=== PATIENT | male | born 1940 | race Caucasian/White ===

== ENCOUNTER 2017-06-26 19:45 | Emergency (ER) | payer OTHER ==
[~2017-06-26] VITALS: Ht 175.3 cm; Wt 81.7 kg
[~2017-06-26 19:45] MED LIST: DOCU100C31 PO; METO25TA56 PO; POLY335019 PO; TAMS0.4C38 PO
[2017-06-26 19:57] VITALS: TEMP 37; Ht 175.3 cm; Wt 81.7 kg
[2017-06-26] MEDS ORDERED: SODIUM CHLORIDE 0.9% 500ML 500 ML IV STA (20:05)
[2017-06-26] MEDS ORDERED: ONDANSETRON INJ 2 MG/ML 2 ML VIAL IV STA (20:05)
[2017-06-26] MEDS ORDERED: WARF5TAB7 PO ×2 (20:15)
[2017-06-26] MEDS ORDERED: AMLO2.5T PO (20:15)
[2017-06-26] MEDS ORDERED: FRS/40 PO (20:15)
[2017-06-26] MEDS ORDERED: MoRPHine SULFATE 4 MG/ML 1 ML CARP\\VIAL IV PRN (20:15)
[2017-06-26] MEDS ORDERED: AMOX500C3 PO (20:15)
[2017-06-26] MEDS ORDERED: POTA10CA28 PO (20:15)
[2017-06-26 20:41] LABS: BASO % 0.1 %; BASO ABS # 0.01 K/uL (0-0.2); COMPLETE YES; EOS % 0.1 %; HEMATOCRIT 46.9 % (42-52); IG% 0.2 %; LYMPH % 5.5 %; LYMPH ABS # 0.47 K/uL (1.2-3.4); MEAN CELL VOLUME 95.7 fL (80-100); MEAN CORPUSCULAR HGB CONC 33.5 g/dl (32-36); MEAN PLATELET VOLUME 11.8 fL (7.4-10.4); MONO % 14.5 %; NEUT % 79.6 %; PLATELET COUNT 140 K/uL (130-400)
--- NOTE | 2017-06-26 20:46 | DIAGNOSTIC IMAGING REPORT ---
CHEST ONE VIEW PORTABLE CLINICAL HISTORY: Abdominal pain and nausea. COMPARISON STUDY: Chest radiograph June 26, 2015. FINDINGS: No pneumothorax or pleural effusion is present. Mild to moderate cardiomegaly is noted. There is no evidence of pulmonary edema. A calcified 1.1 cm left lung granuloma is again noted. There is no consolidation to suggest pneumonia. Mild left basilar opacity favors atelectasis. IMPRESSION: No acute cardiopulmonary findings. Electronically signed by: Bret Hu M.D. 06/26/2017 8:44 PM Dictated Date/Time: 06/26/2017 8:43 PM
--- NOTE | 2017-06-26 20:54 | EMERGENCY ROOM VISIT NOTE ---
History Report prepared by Laisha: Geovanny Long Under the Supervision of: Dr. Frank Tam D.O. First contact with patient: 20:02 Chief Complaint: NAUSEA Stated Complaint: NAUSEA,DIZZY,STOMACH HAS GAS,DIARRHEA,KIDNEYS History of Present Illness The patient is a 76 year old male who presents to the Emergency Room with complaints of constant nausea starting earlier today. The patient additionally is complaining of diarrhea, dizziness, and he states that his stomach is firm. He also notes that he is vomiting liquids, and he has chronic leg swelling. The patient denies any abdominal pain, back pain, hematuria, headache, chest pain, shortness of breath, fevers, or chills, and any recent antibiotics. He states that he is having some sinus congestion. The patient notes that he had similar symptoms two years ago when he had kidney stones. Source of History: patient Onset: earlier today Position: other (global) Quality: other (nausea) Timing: constant Associated Symptoms: + vomiting, + diarrhea Note: Associated symptoms: dizziness, and his stomach feels firm Review of Systems See HPI for pertinent positives & negatives. A total of 10 systems reviewed and were otherwise negative. Past Medical & Surgical Medical Problems: (1) Aortic stenosis (2) CAD (coronary artery disease) (3) HTN (hypertension) (4) Hx of finger surgery (5) Paroxysmal a-fib Surgical Problems: (1) History of back surgery (2) Hx of cataract surgery (3) Hx of elbow surgery (4) Hx of hernia repair Family History No significant family history Social History Smoking Status: Never Smoker Alcohol Use: occasionally Drug Use: none Marital Status: Housing Status: lives with family Occupation Status: retired Current/Historical Medications Scheduled Amlodipine (Norvasc), 2.5 MG PO DAILY Amoxicillin (Amoxil), 500 MG PO DIRECTED Metoprolol Tartrate (Lopressor) (Lopressor), 25 MG PO BID Potassium Chloride (Micro-K Ext Rel), 10 MEQ PO DAILY Warfarin Sod (Jantoven), 5 MG PO MONDAY Warfarin Sod (Jantoven), 2.5 MG PO [id number] Scheduled PRN Furosemide (Lasix), 40 MG PO DAILY PRN for PRN Allergies Coded Allergies: No Known Allergies (Unverified , 06/26/17) Physical Exam Vital Signs Date Time Temp Pulse Resp B/P (MAP) Pulse Ox O2 Delivery O2 Flow Rate FiO2 06/26/17 23:18 89 18 126/72 94 06/26/17 21:54 93 118/65 90 Room Air 06/26/17 20:52 82 06/26/17 19:57 37.0 86 16 150/81 95 Room Air Physical Exam GENERAL: Patient is awake, alert, and in no acute distress. Patient is resting comfortably and showing no signs of anxiety EYES: The conjunctivae are clear. The pupils are round and reactive. EARS, NOSE, MOUTH AND THROAT: The nose is without any evidence of any deformity. Mucous membranes are moist tongue is midline NECK: The neck is nontender and supple. RESPIRATORY: Normal respiratory effort is noted there is no evidence of wheezing rhonchi or rales CARDIOVASCULAR: Irregular rhythm. Systolic murmur suggested to auscultation. GASTROINTESTINAL: The abdomen is moderately distended but soft. No specific tenderness, guarding, or rigidity. BACK: No midline tenderness or or step-off noted range of motion in flexion extension as well as rotation no signs of muscle spasm noted MUSCULOSKELETAL/EXTREMITIES: There is no evidence of gross deformity full range of motion is noted in the hips and shoulders SKIN: There is pedal edema bilaterally. There is no obvious evidence of any rash. There are no petechiae, pallor or cyanosis noted. NEUROLOGIC: Patient is awake alert and oriented x3 strength is symmetric patellar reflexes are 2+ bilaterally Medical Decision & Procedures ER Provider Diagnostic Interpretation: Radiology results as stated below per my review and radiologist interpretation: CHEST ONE VIEW PORTABLE CLINICAL HISTORY: Abdominal pain and nausea. COMPARISON STUDY: Chest radiograph June 26, 2015. FINDINGS: No pneumothorax or pleural effusion is present. Mild to moderate cardiomegaly is noted. There is no evidence of pulmonary edema. A calcified 1.1 cm left lung granuloma is again noted. There is no consolidation to suggest pneumonia. Mild left basilar opacity favors atelectasis. IMPRESSION: No acute cardiopulmonary findings. Electronically signed by: Bret Hu M.D. 06/26/2017 8:44 PM Dictated Date/Time: 06/26/2017 8:[address] OF THE ABDOMEN AND PELVIS WITHOUT CONTRAST CLINICAL HISTORY: Abdominal pain. History of stones. COMPARISON STUDY: CT of the abdomen and pelvis June 26, 2015 and KUB March 23, 2016 TECHNIQUE: Axial images of the abdomen and pelvis were obtained without IV contrast. Images were reviewed in the axial, sagittal, and coronal planes. A dose lowering technique was utilized adhering to the principles of ALARA. FINDINGS: Groundglass opacities within visualized portions of the lungs suggest atelectasis. Several bilateral renal calculi are noted, including a 6 mm calculus within the lower pole of the right kidney. There are no ureteral or bladder. No hydronephrosis or hydroureter is present. Evaluation of the remainder of the abdomen and pelvis is suboptimal on this unenhanced examination. Unenhanced images of liver, spleen, adrenal glands and pancreas are normal. There is no biliary or pancreatic ductal dilatation. The caliber of small and large bowel is normal. The appendix is normal. A small fat-containing umbilical hernia is noted. No pneumatosis, free air or portal venous gas is present. Postoperative findings within the spine are suboptimally assessed by CT. No suspicious osseous lesion is present. Several mesenteric infiltration is of doubtful significance. IMPRESSION: 1. Bilateral nephrolithiasis. No ureteral calculi or hydronephrosis. 2. No bowel obstruction. Normal appendix. Electronically signed by: Bret Hu M.D. 06/26/2017 8:55 PM Dictated Date/Time: 06/26/2017 8:[address] OF THE HEAD WITHOUT CONTRAST CLINICAL HISTORY: Vertigo. COMPARISON STUDY: No previous studies for comparison. CT DOSE: 537.48 mGy.cm TECHNIQUE: Helical axial images of the head were obtained without IV contrast. Automated exposure control was utilized for the study. A dose lowering technique was utilized adhering to the principles of ALARA. FINDINGS: No acute intracranial hemorrhage, midline shift or mass effect is present. Ventricular system is normal. Basilar cisterns are patent. There are no extra-axial collections. Wyman-white differentiation is maintained. There are no findings to suggest acute dural sinus thrombosis or acute territorial infarct. Mild white matter hypodensity suggests small vessel disease. There are no significant calvarial abnormalities. There is mild mucosal thickening of the ethmoid sinuses. IMPRESSION: No acute intracranial findings. Electronically signed by: Bret Hu M.D. 06/26/2017 10:23 PM Dictated Date/Time: 06/26/2017 10:21 PM Laboratory Results 06/26/17 20:23 Red Blood Count 4.90, Mean Corpuscular Volume 95.7, Mean Corpuscular Hemoglobin 32.0, Mean Corpuscular Hemoglobin Concent 33.5, Mean Platelet Volume 11.8, Neutrophils (%) (Auto) 79.6, Lymphocytes (%) (Auto) 5.5, Monocytes (%) (Auto) 14.5, Eosinophils (%) (Auto) 0.1, Basophils (%) (Auto) 0.1, Neutrophils # (Auto ) 6.84, Lymphocytes # (Auto) 0.47, Monocytes # (Auto) 1.25, Eosinophils # (Auto ) 0.01, Basophils # (Auto) 0.01 06/26/17 20:23 Test 06/26/17 20:23 06/26/17 21:10 White Blood Count 8.60 K/uL (4.8-10.8) Red Blood Count 4.90 M/uL (4.7-6.1) Hemoglobin 15.7 g/dL (14.0-18.0) Hematocrit 46.9 % (42-52) Mean Corpuscular Volume 95.7 fL (80-100) Mean Corpuscular Hemoglobin 32.0 pg (25-34) Mean Corpuscular Hemoglobin Concent 33.5 g/dl (32-36) Platelet Count 140 K/uL (130-400) Mean Platelet Volume 11.8 fL (7.4-10.4) Neutrophils (%) (Auto) 79.6 % Lymphocytes (%) (Auto) 5.5 % Monocytes (%) (Auto) 14.5 % Eosinophils (%) (Auto) 0.1 % Basophils (%) (Auto) 0.1 % Neutrophils # (Auto) 6.84 K/uL (1.4-6.5) Lymphocytes # (Auto) 0.47 K/uL (1.2-3.4) Monocytes # (Auto) 1.25 K/uL (0.11-0.59) Eosinophils # (Auto) 0.01 K/uL (0-0.5) Basophils # (Auto) 0.01 K/uL (0-0.2) RDW Standard Deviation 45.4 fL (36.4-46.3) RDW Coefficient of Variation 13.1 % (11.5-14.5) Immature Granulocyte % (Auto) 0.2 % Immature Granulocyte # (Auto) 0.02 K/uL (0.00-0.02) Prothrombin Time 21.7 SECONDS (9.0-12.0) Prothromb Time International Ratio 2.0 (0.9-1.1) Activated Partial Thromboplast Time 37.3 SECONDS (21.0-31.0) Partial Thromboplastin Ratio 1.4 Anion Gap 9.0 mmol/L (3-11) Est Creatinine Clear Calc Drug Dose 44.5 ml/min Estimated GFR () 56.9 Estimated GFR (Non- 49.1 BUN/Creatinine Ratio 12.2 (10-20) Calcium Level 8.4 mg/dl (8.5-10.1) Total Bilirubin 0.8 mg/dl (0.2-1) Direct Bilirubin 0.2 mg/dl (0-0.2) Aspartate Amino Transf (AST/SGOT) 16 U/L (15-37) Alanine Aminotransferase (ALT/SGPT) 18 U/L (12-78) Alkaline Phosphatase 73 U/L (45-117) Total Creatine Kinase 83 U/L (39-308) Creatine Kinase MB 0.7 ng/ml (0.5-3.6) Creatine Kinase MB Ratio 0.8 (0-3.0) Troponin I < 0.015 ng/ml (0-0.045) Total Protein 7.6 gm/dl (6.4-8.2) Albumin 3.8 gm/dl (3.4-5.0) Lipase 85 U/L (73-393) Urine Color YELLOW Urine Appearance CLEAR (CLEAR) Urine pH 6.5 (4.5-7.5) Urine Specific [place] 1.021 (1.000-1.030) Urine Protein 1+ (NEG) Urine Glucose (UA) NEG (NEG) Urine Ketones NEG (NEG) Urine Occult Blood 1+ (NEG) Urine Nitrite NEG (NEG) Urine Bilirubin NEG (NEG) Urine Urobilinogen NEG (NEG) Urine Leukocyte Esterase NEG (NEG) Urine WBC (Auto) 1-5 /hpf (0-5) Urine RBC (Auto) 5-10 /hpf (0-4) Urine Hyaline Casts (Auto) 0 /lpf (0-5) Urine Epithelial Cells (Auto) 5-10 /lpf (0-5) Urine Bacteria (Auto) NEG (NEG) Laboratory results per my review. Medications Administered Medications (Trade) Dose Ordered Sig/Dyan Route Start Time Stop Time Status Last Admin Dose Admin Ondansetron HCl (Zofran Inj) 4 mg NOW STAT IV 06/26/17 20:05 06/26/17 20:07 DC 06/26/17 20:23 4 MG Sodium Chloride 500 ml @ 999 mls/hr Q31M STAT IV 06/26/17 20:05 06/26/17 20:35 DC 06/26/17 20:05 999 MLS/HR Meclizine HCl (Antivert Tab) 25 mg NOW STAT PO 06/26/17 22:24 06/26/17 22:25 DC 06/26/17 22:29 25 MG Meclizine HCl (Antivert 25MG Home Pack) 1 homepack UD ONCE PO 06/26/17 23:15 06/26/17 23:16 DC 06/26/17 23:10 1 HOMEPACK ECG Indication: nausea, other (dizziness) Rate (beats per minute): 78 Rhythm: atrial fibrillation Findings: RBBB, other (No PVC) Comparison ECG Date: 06/27/15 Change: no significant change ED Course 2001: The patient was evaluated in room B3. A complete history and physical examination were performed. 2005: NSS 500 ml @ 999 mls/hr IV, Zofran 4mg IV 2015: Morphine Sulfate 4mg IV 2141: I reevaluated the patient, and he was still dizzy and having trouble walking. 2224: Antivert Tab 25mg PO 2251: Upon reevaluation, the patient is able to walk well. I discussed the results and treatment plan with him. He verbalized agreement of the treatment plan. He was discharged home. Medical Decision Differential diagnosis: Etiologies such as renal colic, appendicitis, diverticulitis, mesenteric ischemia, aortic pathology, infections, inflammatory bowel disease, PUD, biliary pathology, UTI, as well as others were entertained. Nursing notes reviewed. Additional history is obtained from the patient's family members. The patient is a 76-year-old male who presented to the emergency department with multiple complaints. He felt that his overall condition was consistent with kidney stones that he has experienced in the past. The patient also had significant dizziness and I thought his condition could be consistent with vertigo. I discussed the patient's laboratory and radiographic studies with him and his family members he was able to ambulate around the emergency department. He was encouraged to rest and avoid any strenuous activity. He was encouraged to continue all medications as prescribed and follow-up with his family doctor soon as possible. Otherwise she was encouraged to return to the emergency Department immediately if symptoms change worsen or the need arises. Medication Reconcilliation Current Medication List: was personally reviewed by me Blood Pressure Screening Patient's blood pressure: Elevated blood pressure Blood pressure disposition: Elevated BP felt to be situational Impression Primary Impression: Nausea Additional Impression: Dizziness Scribe Attestation The scribe's documentation has been prepared under my direction and personally reviewed by me in its entirety. I confirm that the note above accurately reflects all work, treatment, procedures, and medical decision making performed by me. Departure Information Dispostion Home / Self-Care Referrals Waqas Segura M.D. (PCP) Forms HOME CARE DOCUMENTATION FORM, IMPORTANT VISIT INFORMATION Patient Instructions ED Dizziness [facility], My [facility] Additional Instructions Call your family in the morning to schedule a follow-up appointment. Follow- up with your destaticizer feeder as scheduled. Rest and avoid any strenuous activity. Return to the emergency department immediately if symptoms change worsen or the need arises. Problem Qualifiers
[2017-06-26 21:01] LABS: ALT/SGPT 18 U/L (12-78); BLOOD UREA NITROGEN 17 mg/dl (7-18); BUN/CREATININE RATIO 12.2 (10-20); CALCIUM 8.4 mg/dl (8.5-10.1); CARBON DIOXIDE 25 mmol/L (21-32); CHLORIDE 104 mmol/L (98-107); CREATININE 1.37 mg/dl (0.60-1.40); GLUCOSE 124 mg/dl (70-99); PARTIAL THROMBOPLASTIN RATIO 1.4; PROTHROMBIN TIME (PATIENT) 21.7 SECONDS (9.0-12.0); SODIUM 138 mmol/L (136-145)
[2017-06-26 21:06] LABS: ALKALINE PHOSPHATASE 73 U/L (45-117); AST/SGOT 16 U/L (15-37); CKMB/CK RATIO 0.8 (0-3.0)
[2017-06-26 21:41] LABS: URINE APPEARANCE CLEAR (CLEAR); URINE BILIRUBIN NEG (NEG); URINE COLOR YELLOW; URINE NITRITE NEG (NEG); URINE PH 6.5 (4.5-7.5); URINE SPECIFIC GRAVITY 1.021 (1.000-1.030); UROBILINOGEN NEG (NEG)
[2017-06-26 21:43] LABS: MANUAL MICROSCOPIC REQUIRED? NO; REVIEW REQ? NO
[2017-06-26] MEDS ORDERED: MECLIZINE HCL 25 MG TAB PO STA (22:24)
--- NOTE | 2017-06-26 22:25 | DIAGNOSTIC IMAGING REPORT ---
CT OF THE HEAD WITHOUT CONTRAST CLINICAL HISTORY: Vertigo. COMPARISON STUDY: No previous studies for comparison. CT DOSE: 537.48 mGy.cm TECHNIQUE: Helical axial images of the head were obtained without IV contrast. Automated exposure control was utilized for the study. A dose lowering technique was utilized adhering to the principles of ALARA. FINDINGS: No acute intracranial hemorrhage, midline shift or mass effect is present. Ventricular system is normal. Basilar cisterns are patent. There are no extra-axial collections. Wyman-white differentiation is maintained. There are no findings to suggest acute dural sinus thrombosis or acute territorial infarct. Mild white matter hypodensity suggests small vessel disease. There are no significant calvarial abnormalities. There is mild mucosal thickening of the ethmoid sinuses. IMPRESSION: No acute intracranial findings. Electronically signed by: Bret Hu M.D. 06/26/2017 10:23 PM Dictated Date/Time: 06/26/2017 10:21 PM
[2017-06-26] MEDS ORDERED: MECLIZINE HCL 25MG HOME PACK PO ONE (23:15)
[2017-06-26 23:18] VITALS: BP 126/72; PULSE 89; O2SAT 94
== END 2017-06-26 23:19 | disposition home or self-care (01) ==
LOC: C.EDB 19:46
DX: R11.0 Nausea (principal); R42 Dizziness and giddiness; I35.0 Nonrheumatic aortic (valve) stenosis; I25.10 Atherosclerotic heart disease of native coronary artery without angina pectoris; I10 Essential (primary) hypertension; I48.0 Paroxysmal atrial fibrillation; Z79.01 Long term (current) use of anticoagulants; Z79.899 Other long term (current) drug therapy

== ENCOUNTER → 2017-10-12 | Outpatient (CLI) | payer OTHER ==
[~2017-10-12] MED LIST changes: +AMLO2.5T PO; +AMOX500C3 PO; -DOCU100C31 PO; +FRS/40 PO; -POLY335019 PO; +POTA10CA28 PO; -TAMS0.4C38 PO; +WARF5TAB7 PO
--- NOTE | 2017-10-12 12:31 | DIAGNOSTIC IMAGING REPORT ---
KUB HISTORY: Follow-up study in a patient with nephrolithiasis NEPHROLITHIASIS COMPARISON: [facility] 03/23/2016, CT 06/26/2017 FINDINGS: The bowel gas pattern is non-obstructive. There is no organomegaly. Bilateral nephrolithiasis redemonstrated measuring up to 4 mm within the right kidney. These findings appear unchanged from comparison study. No definite ureteral calculi identified. 2 mm calcification of the right hemipelvis suggests a phlebolith. No pneumoperitoneum or pneumatosis. No fracture. Fusion hardware of the lumbar spine extends from L2-L5. Degenerative changes are seen within the bilateral hips and pelvis. IMPRESSION: Unchanged bilateral nephrolithiasis without ureteral calculi identified. Electronically signed by: Justin Tom M.D. 10/12/2017 12:30 PM Dictated Date/Time: 10/12/2017 12:28 PM
== END | disposition home or self-care (01) ==
LOC: C.RAD 12:07
PROVIDERS: ATTEND Urology
DX: N20.0 Calculus of kidney (principal)

== ENCOUNTER 2020-02-13 11:59 | Inpatient (IN) ==
[2020-02-13 12:33] LABS: Basophils # (auto) 0.02 K/uL (0-0.2); Basophils % (auto) 0.3 %; Eosinophils # (auto) 0.07 K/uL (0-0.5); Eosinophils % (auto) 1.1 %; Hematocrit (blood only) 46.7 % (42-52); Hemoglobin 15.2 g/dL (14.0-18.0); Immature Granulocytes # (auto) 0.01 K/uL (0.00-0.02); Immature Granulocytes % (auto) 0.2 %; Lymphocytes # (auto) 1.07 K/uL (1.2-3.4); Lymphocytes % (auto) 16.3 %; Mean Corpuscular Hemoglobin 32.7 pg (25-34); Mean Corpuscular Hgb Conc 32.5 g/dL (32-36); Mean Corpuscular Volume 100.4 fL (80-100); Mean Platelet Volume 11.2 fL (7.4-10.4); Monocytes # (auto) 0.97 K/uL (0.11-0.59); Monocytes % (auto) 14.8 %; Neutrophils # (auto) 4.43 K/uL (1.4-6.5); Neutrophils % (auto) 67.3 %; Platelet Count 141 K/uL (130-400); RDW Coefficient of Variation 13.5 % (11.5-14.5); RDW Standard Deviation 49.4 fL (36.4-46.3); Red Blood Count 4.65 M/uL (4.7-6.1); White Blood Count 6.57 K/uL (4.8-10.8)
[2020-02-13 12:43] LABS: INR 1.2 (0.9-1.1); Prothrombin Time 12.2 Seconds (9.0-12.0)
[2020-02-13 12:53] LABS: Alanine Aminotransferase 34 U/L (12-78); Albumin Level 3.9 gm/dl (3.4-5.0); Aspartate Aminotransferase 27 U/L (15-37); BUN Creatinine Ratio 18.5 (10-20); Blood Urea Nitrogen 26 mg/dl (7-18); Calcium 8.8 mg/dl (8.5-10.1); Carbon Dioxide 28 mmol/L (21-32); Chloride 108 mmol/L (98-107); Creatinine Clr Calc Pharmacy 39.2 ml/min; Est GFR (African American) 52.9; Est GFR (Non-African American) 45.6; Glucose 109 mg/dl (70-99); Magnesium 2.3 mg/dl (1.8-2.4); Potassium 4.4 mmol/L (3.5-5.1); Sodium 140 mmol/L (136-145)
[2020-02-13 13:04] LABS: Alkaline Phosphatase 89 U/L (45-117); Bilirubin,Total 0.8 mg/dl (0.2-1); Globulin 4.1 gm/dl (2.5-4.0); Troponin I < 0.015 ng/ml (0-0.045)
[2020-02-13] MEDS ORDERED: METOPROLOL TARTRATE 1 MG/ML VIAL IV PRN ×2 (13:18→15:47)
--- NOTE | 2020-02-13 13:22 | Emergency Department Note ---
Impression & Plan Atrial fibrillation and flutter, Edema of both lower legs, SOB (shortness of breath) ED Provider Note NAME: VÍCTOR BARNES AGE: 79 SEX: M : 1940 ARRIVES VIA: Walk-In INFORMANT: Patient, ED PROVIDER(S): Nico Hedrick MD Chief Complaint: A. fib HPI: States he was referred after he had an outpatient interrogation of his pacemaker which showed concern for A. fib. Dr. Piper was also made aware of the patient. Patient does state that he is had some worsening shortness of breath over the last several months. The patient is chronic lower extremity edema. Patient denies any recent changes in salt or fluids. The patient denies alcohol, tobacco, substance abuse, or supplements or stimulants. Patient denies any chest pain or concern for coronavirus or fevers or chills. The patient states that he did have a valve repair completed 2 years ago. The patient denies any other changes in any symptoms at this time. ROS: See HPI for pertinent positives and negatives. A total of 10 systems were rev iewed and otherwise negative. Past medical history: See below Surgical history: See below Social history: See below Physical Exam: GENERAL: Well appearing, well nourished, NAD, non-toxic. EYE EXAM: Normal conjunctiva. PERRL, no anisocoria and EOM's grossly intact w/o pain. NECK: Supple, no nuchal rigidity, no adenopathy, non-tender. No signs of meningismus. LUNGS: Clear to auscultation. Normal chest wall mechanics. HEART: NSR, no MRG. ABDOMEN: Abdomen soft, non-tender, normo-active bowel sounds, no masses, no rebound or guarding. BACK: No CVA TTP. SKIN: No rashes and no bruising. UPPER EXTREMITIES: Upper extremities are grossly normal. LOWER EXTREMITIES: 2-3+ bilateral lower extremity edema that is symmetric without any erythema and no calf pain noted. NEURO EXAM: A&O x3, cranial nerves II-XII grossly intact, normal speech, moves all 4 extremities on command w/o issue. Differential diagnoses: Premature contractions, electrolyte abnormality, cardiac dysrhythmia, thyroid dysfunction, pulmonary embolism, infection, gastrointestinal, as well as other pathologies. Course: Patient was seen and evaluated the bedside. Full history physical exam was performed. EKG: Indication: Concern for possible A. fib Sinus tachycardia with V paced complexes, rate of 118, borderline prolonged QT, normal axis, T wave inversions inferiorly and anteriorly. Ventricular pacemaker has replaced his A. fib from comparison EKG June 26, 2017. Imaging Studies: Radiology results as stated below per my review in the radiologist's interpretation: XR chest 1V portable CLINICAL HISTORY: Shortness of breath. COMPARISON STUDY: Chest CT June 08, 2015 and chest radiograph June 26, 2017. FINDINGS: Note is made of a prosthetic aortic valve, dual lead left subclavian pacemaker, left atrial appendage occluder device and median sternotomy wires. Moderate cardiomegaly is noted without evidence for pulmonary edema. A calcified left lung granuloma is incidentally noted. There is no pneumothorax or pleural effusion. Linear left midlung opacity represents scarring or atelectasis. There is no consolidation to suggest pneumonia. IMPRESSION: No acute cardiopulmonary findings. No change in appearance of the chest. ACT 112: Negative or not required by law. Electronically signed by: Bret uH M.D. 02/13/2020 2:20 PM Dictated: 02/13/20 1416 Transcribed: 02/13/20 1416 Cardiac monitoring: An order was placed for continuous cardiac monitoring. The monitor shows a rate of 115 with regular rhythm. MDM: Patient did have blood work completed. Patient has a normal white count H&H and platelet count. The patient's kidney function is at baseline with a creatinine 1.4. Phosphorus is low in order for repleted. Troponin is nondetectable. I did speak with the on-call court recording monitor Dr. Piper he was stating that even of the sinus tach may be present this may be masking an atrial flutter. He did recommend heparin and Lopressor. This was ordered. Upon reassessment the room the patient was currently in a paced rhythm at 80. I did speak with the on-call hospitalist and the patient was to be mated under the [facility] hospitalist service Dr. Guzman. Critical Care: I have personally spent 35 minutes of critical care time in direct management of this patient. This includes bedside care, interpretation of diagnostic studies, and testing, discussion with consultants, patient, and family members, and other require inpatient management activities. This 35 minutes is in excess of all separately billable procedures. Past Med/Surg History Medical History (Updated 02/13/20 @ 15:31 by Nico Hedrick MD) Atrial fibrillation (Acute) Paroxysmal AFIB Chronic venous insufficiency (Acute) CKD (chronic kidney disease), stage III Hypertension (Acute) On anticoagulant therapy (Acute) Pacemaker (Acute) [employer], model [id number]; Right atrial and ventricular lead Valvular heart disease (Acute) Severe ; mild AI; mild MS; mild TR Surgical History (Updated 02/13/20 @ 14:49 by Alyson Haley PA-C) History of back surgery (Inactive) History of heart valve replacement (Acute) s/p AVR with #23 Intuity valve; b/l pulmonary vein isolation; Left atrial appendage clip Hx of cataract surgery (Inactive) Hx of elbow surgery (Inactive) Hx of hernia repair (Inactive) S/P placement of cardiac pacemaker Family History (Updated 02/13/20 @ 14:03 by Alyson Haley PA-C) Other Heart disease Social History (Updated 02/13/20 @ 14:03 by Alyson Haley PA-C) Current Living Situation: Alone Feels Safe at Home: Yes Smoking Status: Never smoker Hx Alcohol Use: No Allergies Allergies Allergy/AdvReac Type Severity Reaction Status Date / Time ciprofloxacin Allergy Intermediate Unknown Unverified 02/13/20 13:23 Home Meds Home Medications Medication Instructions Recorded Confirmed metoprolol tartrate 25 mg PO BID #0 tab 07/09/15 02/13/20 amoxicillin 500 mg PO DIRECTED PRN #21 cap 06/26/17 02/13/20 furosemide [Lasix] 40 mg PO DAILY PRN #0 tab 06/26/17 02/13/20 potassium chloride 10 meq PO DAILY PRN #0 cap 06/26/17 02/13/20 aspirin 81 mg PO QAM 02/13/20 02/13/20 Results & Data (ED) Vital Signs Vital Signs - 24 hr 02/13/20 12:03 02/13/20 13:56 Temperature 36.8 C Temperature Source Oral Pulse Rate 120 H Pulse Rate [Apical] 80 Pulse Rhythm [Apical] Regular Pulse Strength [Apical] Normal Respiratory Rate 20 20 Respiratory Effort / Characteristics Short of Breath Non-Labored Spontaneous Respiratory Depth Normal Normal Respiratory Pattern Regular Regular Blood Pressure 183/108 H Blood Pressure [Right Arm] 164/104 H Blood Pressure Mean 133 Blood Pressure Mean [Right Arm] 124 Blood Pressure Position Sitting Blood Pressure Position [Right Arm] Lying Pulse Oximetry 100 99 Oxygen Delivery Method Room Air Room Air Sepsis Recent Fever Within 48 Hours No Sepsis Action Taken by Nursing No Action Required Home Medications Current Medication List: was personally reviewed by me Laboratory Data Attestation: I reviewed the patient's lab results. Result diagrams: 02/13/20 12:15 02/13/20 12:15 Lab Results 02/13/20 02/13/20 02/13/20 Range/Units 12:15 12:15 12:15 WBC 6.57 (4.8-10.8) K/uL RBC 4.65 L (4.7-6.1) M/uL Hgb 15.2 (14.0-18.0) g/dL Hct 46.7 (42-52) % MCV 100.4 H (80-100) fL MCH 32.7 (25-34) pg MCHC 32.5 (32-36) g/dL RDW Std Deviation 49.4 H (36.4-46.3) fL RDW Coeff of Herman 13.5 (11.5-14.5) % Plt Count 141 (130-400) K/uL MPV 11.2 H (7.4-10.4) fL Immature Gran % (Auto) 0.2 % Neut % (Auto) 67.3 % Lymph % (Auto) 16.3 % [place] % (Auto) 14.8 % Eos % (Auto) 1.1 % Baso % (Auto) 0.3 % Immature Gran # (Auto) 0.01 (0.00-0.02) K/uL Neut # (Auto) 4.43 (1.4-6.5) K/uL Lymph # (Auto) 1.07 L (1.2-3.4) K/uL [place] # (Auto) 0.97 H (0.11-0.59) K/uL Eos # (Auto) 0.07 (0-0.5) K/uL Baso # (Auto) 0.02 (0-0.2) K/uL PT 12.2 H (9.0-12.0) Seconds INR 1.2 H (0.9-1.1) Sodium 140 (136-145) mmol/L Potassium 4.4 (3.5-5.1) mmol/L Chloride 108 H (98-107) mmol/L Carbon Dioxide 28 (21-32) mmol/L Anion Gap 4.0 (3-11) BUN 26 H (7-18) mg/dl Creatinine 1.43 H (0.6-1.4) mg/dl Est Cr Clr Drug Dosing 39.2 ml/min Est GFR ( Amer) 52.9 Est GFR (Non-Af Amer) 45.6 BUN/Creatinine Ratio 18.5 (10-20) Glucose 109 H (70-99) mg/dl Calcium 8.8 (8.5-10.1) mg/dl Phosphorus 2.0 L (2.5-4.9) mg/dl Magnesium 2.3 (1.8-2.4) mg/dl Total Bilirubin 0.8 (0.2-1) mg/dl AST 27 (15-37) U/L ALT 34 (12-78) U/L Alkaline Phosphatase 89 (45-117) U/L Troponin I < 0.015 (0-0.045) ng/ml Total Protein 8.0 (6.4-8.2) gm/dl Albumin 3.9 (3.4-5.0) gm/dl Globulin 4.1 H (2.5-4.0) gm/dl Albumin/Globulin Ratio 1.0 (0.9-2) TSH 2.000 (0.300-4.500) uIu/ml Administered Medications Heparin Sodium/Dextrose (Heparin Sodium/Dextrose) 25,000 units in 500 mls @ 0.02 mls/hr IV .Q24H [facility]; Protocol Stop: 03/14/20 13:29 Last Admin: 02/13/20 13:54 Dose: 1,300 units/hr, 26 mls/hr Documented by: [id number] Cosigned by: [id number] Discontinued Medications Heparin Sodium (Porcine) (Heparin Iv Bolus) Confirm Administered Dose 10,000 units .ROUTE .[facility] Stop: 02/13/20 13:52 Last Admin: 02/13/20 13:54 Dose: 5,000 units Documented by: [id number] Cosigned by: [id number] Discharge Plan Visit Data Chief Complaint: Arrhythmia/Palpitations Stated Complaint: AFIB ED Provider: Nico Hedrick Discharge Problem: Atrial fibrillation and flutter, Edema of both lower legs, SOB (shortness of breath) Discharge Instructions Interventions: ED Discharge Assessment Last Done: 02/13/20 15:20 Forms Stand Alone Forms: My [facility] [place] E-Sign Prescriptions Prescriptions: No Action metoprolol tartrate 25 mg Tablet 25 mg PO BID Qty: 0 RF: 0 amoxicillin 500 mg Capsule 500 mg PO DIRECTED PRN (Reason: premedication for dental appt) Qty: 21 RF: 0 furosemide [Lasix] 40 mg Tablet 40 mg PO DAILY PRN (Reason: swelling) Qty: 0 RF: 0 potassium chloride 10 mEq Tablet Extended Release 10 meq PO DAILY PRN (Reason: take with lasix) Qty: 0 RF: 0 aspirin 81 mg Tablet,Delayed Release (Dr/Ec) 81 mg PO QAM RF: 0 Referrals Referrals: Waqas Segura [Primary Care Provider] -
[2020-02-13] MEDS ORDERED: HEPARIN SOD (PORCINE) 1000 UNIT/ML 10 ML VIAL ONE (13:51)
[2020-02-13] MEDS: HEPARIN SODIUM/DEXTROSE 25,000 UNITS/500 ML BAG IV SCH (13:54)
--- NOTE | 2020-02-13 14:04 | History & Physical Report ---
Date of Service February 13, 2020 Assessment & Plan (1) Atrial fibrillation with rapid ventricular response: This is an 79yo M with a PMH of paroxysmal A fib s/p PVI and left atrial appendage clip, history of aortic valve replacement in 2018, history of complete heart block s/o pacemaker placement, CKD III and HTN who presents with evidence of atrial fibrillation with RVR on routine pacemaker check in the office. -Symptomatic A fib/flutter with RVR during pacer interrogation -History of paroxysmal A fib s/p PVI and left atrial appendage clip -Received 5mg IV Lopressor in ED, HR paced at 80 -Start on heparin. IV Lopressor 5mg Q6H PRN for HR >120. Routine TTE ordered. Monitor on telemetry -Monitor electrolytes closely. Replacing phos -Routine cardiology consult- Dr. Piper aware (2) Bilateral lower extremity edema: Prescribed lasix for intermittent BLE edema. Has not been taking but 2+ BLE today -Denies orthopnea or weight gain but has exertional dyspnea. CXR without evidence of volume overload. TTE pending -Will order home dose Lasix 40mg PO for AM (3) S/P placement of cardiac pacemaker: History of complete heart block. PM placed 2 years ago (4) Aortic stenosis: S/p AV replacement in 2018. Has been taking baby aspirin daily - denies other anticoagulation (5) CAD (coronary artery disease): H/o non-obstructive disease. Continue aspirin, Lopressor (6) HTN (hypertension): Continue Lopressor (7) CKD (chronic kidney disease), stage III: Slightly elevated with Cr 1.43 today (baseline 1.2-1.3). Monitor closely with daily BMP DVT Ppx: IV heparin Code status: FULL PCP: Dr. Segura ([place]) Dispo: Admit to PCU. Plan to return home once medically stable. Patient seen in collaboration with Dr. Benavidez. Please see addendum. History of Present Illness Chief Complaint: sent from clinic for arrhythmia Primary Care Provider: Waqas Segura This is an 79yo M with a PMH of paroxysmal A fib s/p PVI and left atrial appendage clip, history of aortic valve replacement in 2018, history of complete heart block s/o pacemaker placement, CKD III and HTN who presents with evidence of atrial fibrillation with RVR on routine pacemaker check in the office. States that he has been feeling more fatigued than usual with exertional dyspnea over the past few months. Denies any lightheadedness, chest pain or palpitations. No fever, chills, nausea, vomiting, abdominal pain, dysuria, diarrhea or constipation. Has been taking Lopressor 25mg BID and Aspirin 81mg daily. Does not take Lasix regularly. Denies history of bleeding issues. Follows with Dr. Piper in clinic, who is aware of patient and will evaluate during admission. Allergies Allergy/AdvReac Type Severity Reaction Status Date / Time ciprofloxacin Allergy Intermediate Unknown Unverified 02/13/20 13:23 Home Medications Home Medications Medication Instructions Recorded Confirmed Type metoprolol tartrate 25 mg PO BID #0 tab 07/09/15 02/13/20 History amoxicillin 500 mg PO DIRECTED PRN #21 cap 06/26/17 02/13/20 History furosemide [Lasix] 40 mg PO DAILY PRN #0 tab 06/26/17 02/13/20 History potassium chloride 10 meq PO DAILY PRN #0 cap 06/26/17 02/13/20 History aspirin 81 mg PO QAM 02/13/20 02/13/20 History Past Med/Surg History Medical History (Updated 02/13/20 @ 16:14 by Anand Piper DO) Atrial fibrillation (Acute) Paroxysmal AFIB Chronic venous insufficiency (Acute) CKD (chronic kidney disease), stage III Hypertension (Acute) On anticoagulant therapy (Acute) Pacemaker (Acute) [employer], model [id number]; Right atrial and ventricular lead Valvular heart disease (Acute) Severe ; mild AI; mild MS; mild TR Surgical History (Updated 02/13/20 @ 16:14 by Anand Piper DO) History of back surgery (Inactive) History of heart valve replacement (Acute) s/p AVR with #23 Intuity valve; b/l pulmonary vein isolation; Left atrial appendage clip Hx of cataract surgery (Inactive) Hx of elbow surgery (Inactive) Hx of hernia repair (Inactive) S/P placement of cardiac pacemaker Family History (Updated 02/13/20 @ 14:03 by Alyson Haley PA-C) Other Heart disease Social History (Updated 02/13/20 @ 14:03 by Alyson Haley PA-C) Preferred Language: Urugu[place] Communication Ability: Effective Geoint Analyst Required: No Beliefs That Will Affect Care: None Current Living Situation: Alone Feels Safe at Home: Yes Safety Concerns: Feels Safe At This Time Smoking Status: Never smoker Hx Alcohol Use: No Hx Substance Use: No Review of Systems Review of Systems: At least ten systems reviewed and negative except as noted in the HPI. Physical Exam Physical Exam: General Appearance: WD/WN, vitals as above, NAD, sitting up in bed, pleasant, conversing easily Head: normocephalic, atraumatic Eyes: normal inspection, PERRL, conjunctivae normal, anicteric sclerae ENT: external ear and nose normal, oropharynx normal Neck: trachea midline, no thyromegaly normal visual inspection Respiratory: normal respiratory effort, lungs clear to auscultation, no wheeze, rales, rhonchi. Normal insp/exp effort, no accessory muscle use Cardiovascular: regular rate & rhythm, + systolic murmur, normal peripheral pulses. 2+ BLE pitting edema Chest: normal inspection of chest Abdomen/GI: normal bowel sounds, soft, nontender, no hepatosplenomegaly. Reducible umbilical hernia Extremities/Musculoskeletal: no cyanosis or clubbing, extremities motor strength 5/5 Neurologic: PERRL, EOMI, accommodation nl, no face palsy, no dysarthria, CN's II-XI intact bilaterally and moves all extremities Psychiatric: A+Ox3, euthymic affect Skin: no rashes, normal color, warm/dry Results & Data Results & Data ([facility]) Vital Signs (Past 12 Hours) Vital Signs Temp Pulse Resp BP Pulse Ox 02/13/20 12:03 36.8 C 120 H 20 183/108 H 100 Laboratory Results Short CBC 02/13/20 Range/Units 12:15 WBC 6.57 (4.8-10.8) K/uL Hgb 15.2 (14.0-18.0) g/dL Hct 46.7 (42-52) % Plt Count 141 (130-400) K/uL BMP 02/13/20 12:15 Sodium 140 Potassium 4.4 Chloride 108 H Carbon Dioxide 28 BUN 26 H Creatinine 1.43 H Glucose 109 H Calcium 8.8 Cardiac Enzymes 02/13/20 Range/Units 12:15 Troponin I < 0.015 (0-0.045) ng/ml Liver Function 02/13/20 Range/Units 12:15 Total Bilirubin 0.8 (0.2-1) mg/dl AST 27 (15-37) U/L ALT 34 (12-78) U/L Alkaline Phosphatase 89 (45-117) U/L Albumin 3.9 (3.4-5.0) gm/dl Diagnostic Findings CXR: IMPRESSION: No acute cardiopulmonary findings. No change in appearance of the chest. ECG Rhythm: sinus tachycardia Code Status & VTE Plan VTE Prophylaxis Plan VTE Prophylaxis will be ordered: Yes Supervising Physician Co-Signing Physician Notes Patient is an 79-year-old male with history of paroxysmal atrial fibrillation S/P LAMAR, left atrial appendage clip, H/P AVR, Heart block S/P pacemaker other problems presents with history of feeling tired and having dyspnea on exertion since last few days. Patient was pacemaker evaluated as outpatient and was found to be in A. fib RVR. Patient was sent to ED for further evaluation. He denies any chest pain, palpitations, dizziness, nausea. He started on IV heparin while in ED. On exam patient is moderately built and nourished, normocephalic atraumatic, lungs are clear to auscultation, normal breath sounds, S1-S2, positive murmur, 2+ bilateral lower extremity edema, abdomen soft nontender,+ umbilical hernia, grossly nonfocal neurological deficits. Patient is admitted for management of A. fib RVR/flutter. Pacemaker interrogation is done as outpatient. Continue IV heparin. Continue metoprolol. IV Lopressor as needed. Consulted cardiology. We will hold Lasix for now. Monitor electrolytes and replace as needed. Will obtain a resting echo. TSH is within normal limits. Hypophosphatemia noted on labs. Will replete electrolytes. His blood pressure is elevated while in ED. Likely situational. Monitor blood pressure closely. I personally reviewed the record. Patient is interviewed and examined at bedside. Patient's care is coordinated with Alyson Haley PA-C. Please refer to the documentation above for details of patient's presentation and for discussion of other issues.
--- NOTE | 2020-02-13 14:21 | XRay Report ---
XR chest 1V portable CLINICAL HISTORY: Shortness of breath. COMPARISON STUDY: Chest CT June 08, 2015 and chest radiograph June 26, 2017. FINDINGS: Note is made of a prosthetic aortic valve, dual lead left subclavian pacemaker, left atrial appendage occluder device and median sternotomy wires. Moderate cardiomegaly is noted without eviden ce for pulmonary edema. A calcified left lung granuloma is incidentally noted. There is no pneumothor ax or pleural effusion. Linear left midlung opacity represents scarring or atelectasis. There is no c onsolidation to suggest pneumonia. IMPRESSION: No acute cardiopulmonary findings. No change in appearance of the chest. ACT 112: Negative or not required by law. Electronically signed by: Bret Hu M.D. 02/13/2020 2:20 PM
[2020-02-13] MEDS ORDERED: POLYETHYLENE (MIRALAX) 17 GM PACK PO PRN (15:47)
[2020-02-13] MEDS ORDERED: ACETAMINOPHEN 325 MG TAB PO PRN (15:47)
--- NOTE | 2020-02-13 16:06 | Cardiology Consultation ---
Date of Consultation February 13, 2020 Assessment & Plan (1) Atrial flutter with rapid ventricular response: (2) S/P AVR: (3) SOB (shortness of breath): (4) Edema of both lower legs: (5) S/P placement of cardiac pacemaker: It appears that Mr. Suarez is suffering from symptomatic atrial flutter with rapid ventricular response. He does carry a previous history that was amenable to DC cardioversion in the past. He is also had pulmonary vein isolation for atrial fibrillation and a left atri al appendage clip performed during his aortic valve replacement surgery in April 2018. I have no doubt that he will benefit by zoroastrianism of normal sinus rhythm. For completeness sake I would like to evaluate the clip site to make sure there is no thrombi so I will plan for GULSHAN in the a.m. and then subsequent DC cardioversion. Afterwards, I have counseled him that increase the odds of maintaining normal sinus rhythm I would recommend initiation of sotalol therapy along with 3-day hospitalization for observation. The risks, benefits and alternatives were discussed with him and he will think about it overnight, I would not start it prior to the GULSHAN anyway. He has been started on heparin which I agree with and I will increase his metoprolol frequency particularly for his hypertension at this time. Given the nature of atrial flutter I highly doubt we will be able to rate control him prior to the cardioversion. History of Present Illness Reason for Consultation: atrial flutter with rapid ventricular response Requesting Physician: Dr. Hedrick Attending Physician: Afshin Benavidez MD History of Present Illness It was my pleasure to see Mr. Edwards in consultation today February 13, 2020. He is a very pleasant 79-year-old gentleman that normally follows with myself as an outpatient. He presented to the emergency department at my direction today after device interrogation at our office showed that he has had an 82% atrial flutter burden over the last month. Clinically, he states he is just been feeling rundown and tired as of late. He states that even minimal activity causes him to be very tired to the point where he is to stop and rest. He states that this is been progressing over the last month but is now to the point where walking up a flight of steps this morning caused him have to sit down and rest at the top. He denies any chest pain, shortness of breath, palpitations, lightheadedness, dizziness or syncope. He is very active at baseline and he states it is now taking him 3 times longer to do any activities than it did last year. Past medical history as per my most recent outpatient office note: 1.Paroxysmal atrial fibrillation, status post PVI (pulmonary vein isolation) and left atrial appendage clip. 2.Severe aortic stenosis status post aortic valve replacement with a #23 Intuity valve. 3.Postoperative permanent pacemaker placement with a [employer] dual-chamber device. 4.Stage III chronic kidney disease. 5.Hypertension. Allergies Allergy/AdvReac Type Severity Reaction Status Date / Time ciprofloxacin Allergy Intermediate Unknown Unverified 02/13/20 13:23 Home Medications Home Medications Medication Instructions Recorded Confirmed Type metoprolol tartrate 25 mg PO BID #0 tab 07/09/15 02/13/20 History amoxicillin 500 mg PO DIRECTED PRN #21 cap 06/26/17 02/13/20 History furosemide [Lasix] 40 mg PO DAILY PRN #0 tab 06/26/17 02/13/20 History potassium chloride 10 meq PO DAILY PRN #0 cap 06/26/17 02/13/20 History aspirin 81 mg PO QAM 02/13/20 02/13/20 History Patient History Medical History Atrial fibrillation (Acute) Paroxysmal AFIB Chronic venous insufficiency (Acute) CKD (chronic kidney disease), stage III Hypertension (Acute) On anticoagulant therapy (Acute) Pacemaker (Acute) [employer] medical, model [id number]; Right atrial and ventricular lead Valvular heart disease (Acute) Severe ; mild AI; mild MS; mild TR Surgical History History of back surgery (Inactive) History of heart valve replacement (Acute) s/p AVR with #23 Intuity valve; b/l pulmonary vein isolation; Left atrial appendage clip Hx of cataract surgery (Inactive) Hx of elbow surgery (Inactive) Hx of hernia repair (Inactive) S/P placement of cardiac pacemaker Family History Other Heart disease Social History Preferred Language: Tajik Communication Ability: Effective Trumpet Teacher Required: No Beliefs That Will Affect Care: None Current Living Situation: Alone Feels Safe at Home: Yes Safety Concerns: Feels Safe At This Time Smoking Status: Never smoker Hx Alcohol Use: No Hx Substance Use: No Review of Systems Review of Systems: All systems reviewed & are unremarkable except as noted in HPI & below Physical Exam Physical Exam: General: Awake, alert and oriented x 3. No acute distress. HEENT: Normocephalic, atraumatic. Pupils equal, round and reactive to light and accommodation. Extraocular muscles are intact. Anicteric sclera. Moist mucous membranes. Neck: No JVD. No bruit. Cardiovascular: irregularly irregular, unable to appreciate murmur, rub or gallop. Pulmonary: Clear to auscultation bilaterally. No rales, rhonchi, or wheezing. Abdomen: Bowel sounds x 4, soft. No rebound, guarding or tenderness. No organomegaly. Extremities: No clubbing, cyanosis or edema. +2 pedal pulses bilaterally. Skin: Warm and dry. Results & Data ([facility]) Vital Signs (Past 12 Hours) Vital Signs Temp Pulse Pulse Pulse Resp BP BP 02/13/20 15:35 36.5 C 117 H 22 172/100 H 02/13/20 13:56 80 20 164/104 H 02/13/20 12:03 36.8 C 120 H 20 183/108 H Pulse Ox 02/13/20 15:35 99 02/13/20 13:56 99 02/13/20 12:03 100 Laboratory Results Laboratory Results - last 24 hr 02/13/20 02/13/20 02/13/20 12:15 12:15 12:15 WBC 6.57 RBC 4.65 L Hgb 15.2 Hct 46.7 MCV 100.4 H MCH 32.7 MCHC 32.5 RDW Std Deviation 49.4 H RDW Coeff of Herman 13.5 Plt Count 141 MPV 11.2 H Immature Gran % (Auto) 0.2 Neut % (Auto) 67.3 Lymph % (Auto) 16.3 [place] % (Auto) 14.8 Eos % (Auto) 1.1 Baso % (Auto) 0.3 Immature Gran # (Auto) 0.01 Neut # (Auto) 4.43 Lymph # (Auto) 1.07 L [place] # (Auto) 0.97 H Eos # (Auto) 0.07 Baso # (Auto) 0.02 PT 12.2 H INR 1.2 H APTT PTT Ratio Sodium 140 Potassium 4.4 Chloride 108 H Carbon Dioxide 28 Anion Gap 4.0 BUN 26 H Creatinine 1.43 H Est Cr Clr Drug Dosing 39.2 Est GFR ( Amer) 52.9 Est GFR (Non-Af Amer) 45.6 BUN/Creatinine Ratio 18.5 Glucose 109 H Calcium 8.8 Phosphorus 2.0 L Magnesium 2.3 Total Bilirubin 0.8 AST 27 ALT 34 Alkaline Phosphatase 89 Troponin I < 0.015 Total Protein 8.0 Albumin 3.9 Globulin 4.1 H Albumin/Globulin Ratio 1.0 TSH 2.000 Nasal Screen MRSA (PCR) 02/13/20 02/13/20 17:07 Unknown WBC RBC Hgb Hct MCV MCH MCHC RDW Std Deviation RDW Coeff of Herman Plt Count MPV Immature Gran % (Auto) Neut % (Auto) Lymph % (Auto) [place] % (Auto) Eos % (Auto) Baso % (Auto) Immature Gran # (Auto) Neut # (Auto) Lymph # (Auto) [place] # (Auto) Eos # (Auto) Baso # (Auto) PT INR APTT Pending PTT Ratio Pending Sodium Potassium Chloride Carbon Dioxide Anion Gap BUN Creatinine Est Cr Clr Drug Dosing Est GFR ( Amer) Est GFR (Non-Af Amer) BUN/Creatinine Ratio Glucose Calcium Phosphorus Magnesium Total Bilirubin AST ALT Alkaline Phosphatase Troponin I Total Protein Albumin Globulin Albumin/Globulin Ratio TSH Nasal Screen MRSA (PCR) Pending Diagnostic Findings Postop GULSHAN report: Interpretation Summary The patient is s/p aortic valve replacement with a #23 Intuity valve, bilateral pulmonary vein isolation, and left atrial appendage clip. There is an aortic valve bioprosthetic present. Aortic valve prosthesis stenosis is absent. Trace paravalvular aortic regurgitation is present. The qualitative LV ejection fraction is 60-64% (normal). The left ventricular wall motion is incompletely assessed. There is mild anterior mitral leaflet prolapse. Mild to moderate mitral regurgitaiton is present. Atria The left atrium is moderately enlarged. A left atrial mass or thrombus is not identified. S/p left atrial appendage clip without evidence of flow. The right atrium is mildly enlarged. A right atrial mass or thrombus is not identified. Medications Administered Current Inpatient Medications Acetaminophen (Tylenol) 650 mg PO Q4H PRN PRN Reason: Pain or Fever Stop: 03/14/20 15:46 Aspirin (Ecotrin Ectab) 81 mg PO QAM [facility] Stop: 03/15/20 08:59 Heparin Sodium/Dextrose (Heparin Sodium/Dextrose) 25,000 units in 500 mls @ 26 mls/hr IV .[id number] [facility]; Protocol Stop: 03/14/20 13:29 Last Admin: 02/13/20 13:54 Dose: 1,300 units/hr, 26 mls/hr Documented by: Sodium Chloride (Nss 1000ml) 1,000 mls @ 125 mls/hr IV .Q8H [facility] Stop: 03/14/20 16:14 Last Admin: 02/13/20 17:32 Dose: 125 mls/hr Documented by: Metoprolol Tartrate (Lopressor) 5 mg IV Q6H PRN PRN Reason: HR >120 Stop: 03/14/20 15:46 Metoprolol Tartrate (Lopressor) 50 mg PO Q6 [facility] Stop: 03/14/20 15:59 Last Admin: 02/13/20 16:34 Dose: 50 mg Documented by: Polyethylene Glycol (Miralax Powder Packet) 17 gm PO DAILY PRN PRN Reason: Constipation Stop: 03/14/20 15:46 Potassium Phosphate (Phospha 250 Neutral 155-852-130 Mg) 1 tab PO BID [facility] Stop: 02/15/20 15:59 Last Admin: 02/13/20 16:34 Dose: 1 tab Documented by:
[2020-02-13] MEDS: METOPROLOL TARTRATE 50 MG TAB PO SCH ×2 (16:34→23:59)
[2020-02-13] MEDS: POT PHOSPHATE MONOBASIC W/ SOD TAB PO SCH ×2 (16:34→20:40)
--- NOTE | 2020-02-13 17:13 | Electrocardiogram Report ---
Test Reason : Blood Pressure : / mmHG Vent. Rate : 118 BPM Atrial Rate : 118 BPM P-R Int : 184 ms QRS Dur : 142 ms QT Int : 358 ms P-R-T Axes : 118 083 -58 degrees QTc Int : 501 ms Likely atrial flutter occasional ventricular pacing Right bundle branch block T wave abnormality, consider inferolateral ischemia Abnormal ECG When compared with ECG of 26-JUN-2017 20:50, Electronic ventricular pacemaker has replaced Atrial fibrillation Vent. rate has increased BY 40 BPM Confirmed by Nura Medina ([id number]) on 02/13/2020 5:13:26 PM Referred By: ED Confirmed By:Julien Medina
[2020-02-13] MEDS: SODIUM CHLORIDE 0.9% 1000ML 1,000 ML IV SCH (17:32)
[2020-02-13 17:50] LABS: Partial Thromboplastin Ratio 4.4
[2020-02-13 17:58] LABS: Partial Thromboplastin Time 123.4 Seconds (21.0-31.0)
[2020-02-14] MEDS: SODIUM CHLORIDE 0.9% 1000ML 1,000 ML IV SCH ×3 (00:55→18:12)
[2020-02-14 01:32] LABS: Partial Thromboplastin Ratio 3.3
[2020-02-14 01:38] LABS: Partial Thromboplastin Time 91.3 Seconds (21.0-31.0)
[2020-02-14 04:43] LABS: Hematocrit (blood only) 40.1 % (42-52); Hemoglobin 13.5 g/dL (14.0-18.0); Mean Corpuscular Hemoglobin 33.2 pg (25-34); Mean Corpuscular Hgb Conc 33.7 g/dL (32-36); Mean Corpuscular Volume 98.5 fL (80-100); Mean Platelet Volume 11.4 fL (7.4-10.4); Platelet Count 108 K/uL (130-400); RDW Coefficient of Variation 13.6 % (11.5-14.5); Red Blood Count 4.07 M/uL (4.7-6.1); White Blood Count 5.13 K/uL (4.8-10.8)
[2020-02-14 05:07] LABS: BUN Creatinine Ratio 18.4 (10-20); Creatinine Clr Calc Pharmacy 45.2 ml/min; Est GFR (African American) 62.8; Est GFR (Non-African American) 54.2; Magnesium 2.1 mg/dl (1.8-2.4); Potassium 4.7 mmol/L (3.5-5.1)
[2020-02-14] MEDS: METOPROLOL TARTRATE 50 MG TAB PO SCH ×2 (05:48→10:33)
[2020-02-14 06:08] LABS: Phosphorus 2.7 mg/dl (2.5-4.9)
[2020-02-14 08:30] LABS: Partial Thromboplastin Ratio 2.6
[2020-02-14 08:37] LABS: Partial Thromboplastin Time 72.6 Seconds (21.0-31.0)
--- NOTE | 2020-02-14 10:12 | Hospitalist Progress Note ---
Date of Service February 14, 2020 Assessment & Plan (1) Atrial fibrillation with rapid ventricular response: This is an 79yo M with a PMH of paroxysmal A fib s/p PVI and left atrial appendage clip, history of aortic valve replacement in 2018, history of complete heart block s/o pacemaker placement, CKD III and HTN who presents with evidence of atrial fibrillation with RVR on routine pacemaker check in the office. -Symptomatic A flutter with RVR during pacer interrogation -History of paroxysmal A fib s/p PVI and left atrial appendage clip -Received 5mg IV Lopressor in ED, HR paced at 80 -Started on heparin. IV Lopressor 5mg Q6H PRN for HR >120. Routine TTE ordered. Monitor on telemetry -Monitor electrolytes closely. Replacing phos -Routine cardiology consult- Dr. Piper aware, plan for sotalol and transferring to [facility] from IV heparin Outpatient cardiology follow-up in 1 month (2) Bilateral lower extremity edema: Prescribed lasix for intermittent BLE edema. Has not been taking but 2+ BLE on admission -Denies orthopnea or weight gain but has exertional dyspnea. CXR without evidence of volume overload. TTE pending - home dose Lasix 40mg PO daily (3) S/P placement of cardiac pacemaker: History of complete heart block. PM placed 2 years ago (4) Aortic stenosis: S/p AV replacement in 2018. Has been taking baby aspirin daily - denies ot her anticoagulation (5) CAD (coronary artery disease): H/o non-obstructive disease. Continue aspirin, Lopressor (6) HTN (hypertension): Continue Lopressor (7) CKD (chronic kidney disease), stage III: Slightly elevated with Cr 1.43 today (baseline 1.2-1.3). Monitor closely with daily BMP DVT Ppx: IV heparin Code status: FULL PCP: Dr. Seguar ([place]) Dispo: Admit to PCU. Plan to return home once medically stable. Admission and Anticipated Discharge Date Admission Date: February 13, 2020 Subjective Patient converted to sinus on his own last evening. Patient is currently sitting up in bed, eating, in no acute distress. Says he never had palpitations or chest pain however he would be tired easily and short of breath easily. Currently he is in no acute distress and feels comfortable. Denies any fevers, chills, chest pain, shortness of breath, dizziness or lightheadedness. Also denies any abdominal pain nausea or vomiting. Currently on IV heparin, plan for sotalol and transition to Eliquis. Cardiology follow-up in 1 month. Review of Systems Review of Systems: All systems reviewed & are unremarkable except as noted in HPI & below Constitutional: no fever and no chills Respiratory: + dyspnea (improved); no cough Cardiovascular: no chest pain and no palpitations Gastrointestinal: no abdominal pain, no nausea and no vomiting Physical Exam Physical Exam: General Appearance: WD/WN, vitals as above, NAD, sitting up in bed, pleasant, conversing easily Head: normocephalic, atraumatic Eyes: normal inspection, PERRL, conjunctivae normal, anicteric sclerae ENT: external ear and nose normal, oropharynx normal Neck: trachea midline, no thyromegaly normal visual inspection Respiratory: normal respiratory effort, lungs clear to auscultation, no wheeze, rales, rhonchi. Normal insp/exp effort, no accessory muscle use Cardiovascular: regular rate & rhythm, + systolic murmur, normal peripheral pulses. trace BLE pitting edema Chest: normal inspection of chest Abdomen/GI: normal bowel sounds, soft, nontender. Reducible umbilical hernia Extremities/Musculoskeletal: no cyanosis or clubbing, extremities motor strength 5/5, moves extremities spontaneously Neurologic: PERRL, EOMI, accommodation nl, no face palsy, no dysarthria, CN's II-XI intact bilaterally and moves all extremities Psychiatric: A+Ox3, euthymic affect Skin: no rashes, normal color, warm/dry Results & Data Results & Data ([facility]) Vital Signs (Past 12 Hours) Vital Signs Temp Pulse Pulse Resp BP Pulse Ox 02/14/20 07:00 80 02/14/20 04:14 36.6 C 80 20 118/79 96 02/14/20 00:00 36.7 C 80 80 18 119/80 95 02/13/20 22:28 80 Laboratory Results 02/14/20 02/14/20 02/14/20 Range/Units 08:02 04:05 04:05 WBC 5.13 (4.8-10.8) K/uL RBC 4.07 L (4.7-6.1) M/uL Hgb 13.5 L (14.0-18.0) g/dL Hct 40.1 L (42-52) % MCV 98.5 (80-100) fL MCH 33.2 (25-34) pg MCHC 33.7 (32-36) g/dL RDW Std Deviation 49.0 H (36.4-46.3) fL RDW Coeff of Herman 13.6 (11.5-14.5) % Plt Count 108 L (130-400) K/uL MPV 11.4 H (7.4-10.4) fL Immature Gran % (Auto) % Neut % (Auto) % Lymph % (Auto) % [place] % (Auto) % Eos % (Auto) % Baso % (Auto) % Immature Gran # (Auto) (0.00-0.02) K/uL Neut # (Auto) (1.4-6.5) K/uL Lymph # (Auto) (1.2-3.4) K/uL [place] # (Auto) (0.11-0.59) K/uL Eos # (Auto) (0-0.5) K/uL Baso # (Auto) (0-0.2) K/uL PT (9.0-12.0) Seconds INR (0.9-1.1) APTT 72.6 H* (21.0-31.0) Seconds PTT Ratio 2.6 Sodium 141 (136-145) mmol/L Potassium 4.7 (3.5-5.1) mmol/L Chloride 109 H (98-107) mmol/L Carbon Dioxide 29 (21-32) mmol/L Anion Gap 3.0 (3-11) BUN 23 H (7-18) mg/dl Creatinine 1.24 (0.6-1.4) mg/dl Est Cr Clr Drug Dosing 45.2 ml/min Est GFR ( Amer) 62.8 Est GFR (Non-Af Amer) 54.2 BUN/Creatinine Ratio 18.4 (10-20) Glucose 93 (70-99) mg/dl Calcium 8.0 L (8.5-10.1) mg/dl Phosphorus 2.7 (2.5-4.9) mg/dl Magnesium 2.1 (1.8-2.4) mg/dl Total Bilirubin (0.2-1) mg/dl AST (15-37) U/L ALT (12-78) U/L Alkaline Phosphatase (45-117) U/L Troponin I (0-0.045) ng/ml Total Protein (6.4-8.2) gm/dl Albumin (3.4-5.0) gm/dl Globulin (2.5-4.0) gm/dl Albumin/Globulin Ratio (0.9-2) TSH (0.300-4.500) uIu/ml Nasal Screen MRSA (PCR) (Negative) COVID-19 PCR (Negative) SARS-CoV-2 RNA (RT-PCR) 02/14/20 02/13/20 02/13/20 Range/Units 01:00 Unknown 19:30 WBC (4.8-10.8) K/uL RBC (4.7-6.1) M/uL Hgb (14.0-18.0) g/dL Hct (42-52) % MCV (80-100) fL MCH (25-34) pg MCHC (32-36) g/dL RDW Std Deviation (36.4-46.3) fL RDW Coeff of Herman (11.5-14.5) % Plt Count (130-400) K/uL MPV (7.4-10.4) fL Immature Gran % (Auto) % Neut % (Auto) % Lymph % (Auto) % [place] % (Auto) % Eos % (Auto) % Baso % (Auto) % Immature Gran # (Auto) (0.00-0.02) K/uL Neut # (Auto) (1.4-6.5) K/uL Lymph # (Auto) (1.2-3.4) K/uL [place] # (Auto) (0.11-0.59) K/uL Eos # (Auto) (0-0.5) K/uL Baso # (Auto) (0-0.2) K/uL PT (9.0-12.0) Seconds INR (0.9-1.1) APTT 91.3 H* (21.0-31.0) Seconds PTT Ratio 3.3 Sodium (136-145) mmol/L Potassium (3.5-5.1) mmol/L Chloride (98-107) mmol/L Carbon Dioxide (21-32) mmol/L Anion Gap (3-11) BUN (7-18) mg/dl Creatinine (0.6-1.4) mg/dl Est Cr Clr Drug Dosing ml/min Est GFR ( Amer) Est GFR (Non-Af Amer) BUN/Creatinine Ratio (10-20) Glucose (70-99) mg/dl Calcium (8.5-10.1) mg/dl Phosphorus (2.5-4.9) mg/dl Magnesium (1.8-2.4) mg/dl Total Bilirubin (0.2-1) mg/dl AST (15-37) U/L ALT (12-78) U/L Alkaline Phosphatase (45-117) U/L Troponin I (0-0.045) ng/ml Total Protein (6.4-8.2) gm/dl Albumin (3.4-5.0) gm/dl Globulin (2.5-4.0) gm/dl Albumin/Globulin Ratio (0.9-2) TSH (0.300-4.500) uIu/ml Nasal Screen MRSA (PCR) Negative (Negative) COVID-19 PCR NEGATIVE (Negative) SARS-CoV-2 RNA (RT-PCR) 02/13/20 02/13/20 02/13/20 Range/Units 19:30 17:07 12:15 WBC 6.57 (4.8-10.8) K/uL RBC 4.65 L (4.7-6.1) M/uL Hgb 15.2 (14.0-18.0) g/dL Hct 46.7 (42-52) % MCV 100.4 H (80-100) fL MCH 32.7 (25-34) pg MCHC 32.5 (32-36) g/dL RDW Std Deviation 49.4 H (36.4-46.3) fL RDW Coeff of Herman 13.5 (11.5-14.5) % Plt Count 141 (130-400) K/uL MPV 11.2 H (7.4-10.4) fL Immature Gran % (Auto) 0.2 % Neut % (Auto) 67.3 % Lymph % (Auto) 16.3 % [place] % (Auto) 14.8 % Eos % (Auto) 1.1 % Baso % (Auto) 0.3 % Immature Gran # (Auto) 0.01 (0.00-0.02) K/uL Neut # (Auto) 4.43 (1.4-6.5) K/uL Lymph # (Auto) 1.07 L (1.2-3.4) K/uL [place] # (Auto) 0.97 H (0.11-0.59) K/uL Eos # (Auto) 0.07 (0-0.5) K/uL Baso # (Auto) 0.02 (0-0.2) K/uL PT (9.0-12.0) Seconds INR (0.9-1.1) APTT 123.4 H* (21.0-31.0) Seconds PTT Ratio 4.4 Sodium (136-145) mmol/L Potassium (3.5-5.1) mmol/L Chloride (98-107) mmol/L Carbon Dioxide (21-32) mmol/L Anion Gap (3-11) BUN (7-18) mg/dl Creatinine (0.6-1.4) mg/dl Est Cr Clr Drug Dosing ml/min Est GFR ( Amer) Est GFR (Non-Af Amer) BUN/Creatinine Ratio (10-20) Glucose (70-99) mg/dl Calcium (8.5-10.1) mg/dl Phosphorus (2.5-4.9) mg/dl Magnesium (1.8-2.4) mg/dl Total Bilirubin (0.2-1) mg/dl AST (15-37) U/L ALT (12-78) U/L Alkaline Phosphatase (45-117) U/L Troponin I (0-0.045) ng/ml Total Protein (6.4-8.2) gm/dl Albumin (3.4-5.0) gm/dl Globulin (2.5-4.0) gm/dl Albumin/Globulin Ratio (0.9-2) TSH (0.300-4.500) uIu/ml Nasal Screen MRSA (PCR) (Negative) COVID-19 PCR (Negative) SARS-CoV-2 RNA (RT-PCR) Cancelled 02/13/20 02/13/20 Range/Units 12:15 12:15 WBC (4.8-10.8) K/uL RBC (4.7-6.1) M/uL Hgb (14.0-18.0) g/dL Hct (42-52) % MCV (80-100) fL MCH (25-34) pg MCHC (32-36) g/dL RDW Std Deviation (36.4-46.3) fL RDW Coeff of Herman (11.5-14.5) % Plt Count (130-400) K/uL MPV (7.4-10.4) fL Immature Gran % (Auto) % Neut % (Auto) % Lymph % (Auto) % [place] % (Auto) % Eos % (Auto) % Baso % (Auto) % Immature Gran # (Auto) (0.00-0.02) K/uL Neut # (Auto) (1.4-6.5) K/uL Lymph # (Auto) (1.2-3.4) K/uL [place] # (Auto) (0.11-0.59) K/uL Eos # (Auto) (0-0.5) K/uL Baso # (Auto) (0-0.2) K/uL PT 12.2 H (9.0-12.0) Seconds INR 1.2 H (0.9-1.1) APTT (21.0-31.0) Seconds PTT Ratio Sodium 140 (136-145) mmol/L Potassium 4.4 (3.5-5.1) mmol/L Chloride 108 H (98-107) mmol/L Carbon Dioxide 28 (21-32) mmol/L Anion Gap 4.0 (3-11) BUN 26 H (7-18) mg/dl Creatinine 1.43 H (0.6-1.4) mg/dl Est Cr Clr Drug Dosing 39.2 ml/min Est GFR ( Amer) 52.9 Est GFR (Non-Af Amer) 45.6 BUN/Creatinine Ratio 18.5 (10-20) Glucose 109 H (70-99) mg/dl Calcium 8.8 (8.5-10.1) mg/dl Phosphorus 2.0 L (2.5-4.9) mg/dl Magnesium 2.3 (1.8-2.4) mg/dl Total Bilirubin 0.8 (0.2-1) mg/dl AST 27 (15-37) U/L ALT 34 (12-78) U/L Alkaline Phosphatase 89 (45-117) U/L Troponin I < 0.015 (0-0.045) ng/ml Total Protein 8.0 (6.4-8.2) gm/dl Albumin 3.9 (3.4-5.0) gm/dl Globulin 4.1 H (2.5-4.0) gm/dl Albumin/Globulin Ratio 1.0 (0.9-2) TSH 2.000 (0.300-4.500) uIu/ml Nasal Screen MRSA (PCR) (Negative) COVID-19 PCR (Negative) SARS-CoV-2 RNA (RT-PCR) Medications Administered Current Inpatient Medications Acetaminophen (Tylenol) 650 mg PO Q4H PRN PRN Reason: Pain or Fever Stop: 03/14/20 15:46 Aspirin (Ecotrin Ectab) 81 mg PO QAM [facility] Stop: 03/15/20 08:59 Heparin Sodium/Dextrose (Heparin Sodium/Dextrose) 25,000 units in 500 mls @ 18 mls/hr IV .Q24H [facility]; Protocol Stop: 03/14/20 13:29 Last Titration: 02/14/20 08:45 Dose: 900 units/hr, 18 mls/hr Documented by: Sodium Chloride (Nss 1000ml) 1,000 mls @ 125 mls/hr IV .Q8H [facility] Stop: 03/14/20 16:14 Last Admin: 02/14/20 09:28 Dose: 125 mls/hr Documented by: Metoprolol Tartrate (Lopressor) 5 mg IV Q6H PRN PRN Reason: HR >120 Stop: 03/14/20 15:46 Metoprolol Tartrate (Lopressor) 50 mg PO Q6 [facility] Stop: 03/14/20 15:59 Last Admin: 02/14/20 05:48 Dose: 50 mg Documented by: Polyethylene Glycol (Miralax Powder Packet) 17 gm PO DAILY PRN PRN Reason: Constipation Stop: 03/14/20 15:46 Potassium Phosphate (Phospha 250 Neutral 155-852-130 Mg) 1 tab PO BID [facility] Stop: 02/15/20 15:59 Last Admin: 02/13/20 20:40 Dose: 1 tab Documented by: Sotalol HCl (Betapace) 80 mg PO BID [facility] Stop: 03/15/20 09:14
[2020-02-14] MEDS: ASPIRIN 81 MG ECTAB PO SCH (10:31)
[2020-02-14] MEDS: SOTALOL HCL 80 MG TAB PO SCH ×2 (10:31→23:02)
[2020-02-14] MEDS: POT PHOSPHATE MONOBASIC W/ SOD TAB PO SCH ×2 (10:31→23:02)
[2020-02-14 14:54] LABS: Partial Thromboplastin Ratio 1.4; Partial Thromboplastin Time 40.4 Seconds (21.0-31.0)
[2020-02-14] MEDS ORDERED: HEPARIN IV BOLUS 3,000 UNITS in SYRINGE 0 ML IV ONE (15:19)
[2020-02-14] MEDS: HEPARIN SODIUM/DEXTROSE 25,000 UNITS/500 ML BAG IV SCH (15:25)
--- NOTE | 2020-02-14 15:55 | Cardiology Progress Note ---
Date of Service February 14, 2020 Assessment & Plan (1) Atrial flutter with rapid ventricular response: (2) S/P AVR: (3) SOB (shortness of breath): (4) Edema of both lower legs: (5) S/P placement of cardiac pacemaker: Likely, Mr. Edwards converted to normal sinus rhythm on his own last even ing. Obviously GULSHAN and cardioversion are not necessary now. Once again we discussed rhythm control options and he would like to proceed with sotalol loading. He will be started on sotalol 80 mg twice daily and maintained on telemetry monitoring for at least 6 doses. Daily EKGs will be performed to monitor QT interval. Electrolytes should be followed and repleted as necessary. He is currently on heparin for anticoagulation but will ultimately discharged with Sreekanth. My office will call to arrange follow-up with me as an outpatient in 1 month. Subjective Patient seen and examined, chart reviewed. States he is feeling well. Notes that he has a little bit more energy today than he did yesterday and denies any chest pain, shortness of breath, palpitations, lightheadedness, dizziness or syncope. Telemetry reviewed: Patient spontaneously converted to normal sinus rhythm last p.m. now with ventricular paced rhythm with an underlying sinus mechanism. Review of Systems Review of Systems: All systems reviewed & are unremarkable except as noted in HPI & below Physical Exam Physical Exam: General: Awake, alert and oriented x 3. No acute distress. HEENT: Normocephalic, atraumatic. Pupils equal, round and reactive to light and accommodation. Extraocular muscles are intact. Anicteric sclera. Moist mucous membranes. Neck: No JVD. No bruit. Cardiovascular: Regular. Positive S-4. Normal S-1 and S-2. No S-3. 3/6 mid to late systolic ejection murmur, greatest at the right sternal border, second intercostal space with radiation to the bilateral carotids. No rubs. Pulmonary: Clear to auscultation bilaterally. No rales, rhonchi, or wheezing. Abdomen: Bowel sounds x 4, soft. No rebound, guarding or tenderness. No organomegaly. Extremities: No clubbing, cyanosis or edema. +2 pedal pulses bilaterally. Skin: Warm and dry. Results & Data Vital Signs (Past 12 Hours) Vital Signs Temp Pulse Pulse Resp BP Pulse Ox 02/14/20 07:00 80 02/14/20 04:14 36.6 C 80 20 118/79 96
[2020-02-14] MEDS ORDERED: HEPARIN IV BOLUS 6,000 UNITS in SYRINGE 0 ML IV ONE (16:00)
--- NOTE | 2020-02-14 19:17 | Electrocardiogram Report ---
Test Reason : Blood Pressure : / mmHG Vent. Rate : 080 BPM Atrial Rate : 230 BPM P-R Int : 000 ms QRS Dur : 156 ms QT Int : 460 ms P-R-T Axes : 000 -75 097 degrees QTc Int : 530 ms Ventricular-paced rhythm Abnormal ECG Confirmed by Nura Medina ([id number]) on 02/14/2020 7:17:10 PM Referred By: REFERRED SELF Confirmed By:Julien Medina
[2020-02-14 23:20] LABS: Partial Thromboplastin Ratio 4.8
[2020-02-15 01:33] LABS: Partial Thromboplastin Ratio 1.7
[2020-02-15 01:35] LABS: Partial Thromboplastin Time 48.7 Seconds (21.0-31.0)
[2020-02-15] MEDS: SODIUM CHLORIDE 0.9% 1000ML 1,000 ML IV SCH ×2 (01:55→14:02)
[2020-02-15 04:45] LABS: Hematocrit (blood only) 43.4 % (42-52); Hemoglobin 13.8 g/dL (14.0-18.0); Mean Corpuscular Hgb Conc 31.8 g/dL (32-36); Mean Corpuscular Volume 100.7 fL (80-100); Mean Platelet Volume 11.1 fL (7.4-10.4); Platelet Count 123 K/uL (130-400); RDW Coefficient of Variation 13.6 % (11.5-14.5); RDW Standard Deviation 50.2 fL (36.4-46.3); Red Blood Count 4.31 M/uL (4.7-6.1)
[2020-02-15 05:16] LABS: BUN Creatinine Ratio 16.2 (10-20); Calcium 7.9 mg/dl (8.5-10.1); Creatinine Clr Calc Pharmacy 44.8 ml/min; Est GFR (African American) 62.2; Est GFR (Non-African American) 53.7; Magnesium 2.1 mg/dl (1.8-2.4); Potassium 4.1 mmol/L (3.5-5.1)
[2020-02-15 05:35] LABS: Partial Thromboplastin Time 55.3 Seconds (21.0-31.0)
--- NOTE | 2020-02-15 06:59 | Hospitalist Progress Note ---
Date of Service February 15, 2020 Assessment & Plan (1) Atrial fibrillation with rapid ventricular response: This is an 79yo M with a PMH of paroxysmal A fib s/p PVI and left atrial appendage clip, history of aortic valve replacement in 2018, history of complete heart block s/o pacemaker placement, CKD III and HTN who presents with evidence of atrial fibrillation with RVR on routine pacemaker check in the office. -Symptomatic A flutter with RVR during pacer interrogation -History of paroxysmal A fib s/p PVI and left atrial appendage clip -Received 5mg IV Lopressor in ED, HR paced at 80 -Started on heparin. IV Lopressor 5mg Q6H PRN for HR >120. Routine TTE ordered. Monitor on telemetry -Monitor electrolytes closely. Replacing phos -Routine cardiology consult- Dr. Piper aware, plan for sotalol and transitioning to Eliquis from IV heparin -Patient is now off IV heparin, started on sotalol, tolerating well -Eliquis 2.5 mg twice a day started. Lower dose indicated due to patient's age and creatinine Outpatient cardiology follow-up in 1 month (2) Bilateral lower extremity edema: Prescribed lasix for intermittent BLE edema. Has not been taking but 2+ BLE on admission -Denies orthopnea or weight gain but has exertional dyspnea. CXR without evidence of volume overload. - TTE obtained, shows normal LV size with moderate concentric LVH. EF 60 to 65%. No segmental LV wall motion abnormalities noted. Grade 2 diastolic dysfunction. Bioprosthetic aortic valve in place with normal gradients and no regurg. Moderate mitral annular calcification with mild prolapse of the anterior leaflet. Moderate regurg with a posteriorly directed jet. No stenosis -We will discuss with cardiology if Lasix recommended after discharge (3) S/P placement of cardiac pacemaker: History of complete heart block. PM placed 2 years ago (4) Aortic stenosis: S/p AV replacement in 2018. Has been taking baby aspirin daily - denies ot her anticoagulation (5) CAD (coronary artery disease): H/o non-obstructive disease. Continue aspirin, Lopressor now held, as patient started sotalol (6) HTN (hypertension): Previously on home Lopressor , now started on sotalol Continue to monitor BP (7) CKD (chronic kidney disease), stage III: baseline 1.2-1.3 Monitor closely with daily BMP , currently at baseline DVT Ppx: IV heparin stopped, transition to Eliquis Code status: FULL PCP: Dr. Segura ([place]) Dispo: PCU. Plan to return home once medically stable. Admission and Anticipated Discharge Date Admission Date: February 13, 2020 Subjective Currently he is in no acute distress and feels comfortable. Denies any fevers, chills, chest pain, shortness of breath, dizziness or lightheadedness. Also denies any abdominal pain nausea or vomiting. Chambers started, IV heparin stopped this morning, and plan for Eliquis. Cardiology follow-up in 1 month. Review of Systems Review of Systems: All systems reviewed & are unremarkable except as noted in HPI & below Constitutional: no fever and no chills Respiratory: + dyspnea (improved); no cough Cardiovascular: no chest pain and no palpitations Gastrointestinal: no abdominal pain, no nausea and no vomiting Physical Exam Physical Exam: General Appearance: WD/WN, vitals as above, NAD, sitting up in bed, pleasant, conversing easily Head: normocephalic, atraumatic Eyes: normal inspection, PERRL, conjunctivae normal, anicteric sclerae ENT: external ear and nose normal, oropharynx normal Neck: trachea midline, no thyromegaly normal visual inspection Respiratory: normal respiratory effort, lungs clear to auscultation, no wheeze, rales, rhonchi. Normal insp/exp effort, no accessory muscle use Cardiovascular: regular rate & rhythm, + systolic murmur, normal peripheral pulses. trace BLE pitting edema Chest: normal inspection of chest Abdomen/GI: normal bowel sounds, soft, nontender. Reducible umbilical hernia Extremities/Musculoskeletal: no cyanosis or clubbing, extremities motor strength 5/5, moves extremities spontaneously Neurologic: PERRL, EOMI, accommodation nl, no face palsy, no dysarthria, CN's II-XI intact bilaterally and moves all extremities Psychiatric: A+Ox3, euthymic affect Skin: no rashes, normal color, warm/dry Results & Data Results & Data ([facility]) Vital Signs (Past 12 Hours) Vital Signs Temp Pulse Resp BP Pulse Ox 02/15/20 03:31 36.4 C L 81 16 137/85 96 02/14/20 23:51 36.4 C L 80 20 136/83 93 Laboratory Results 02/15/20 02/15/20 02/15/20 Range/Units 04:19 04:19 04:19 WBC 6.10 (4.8-10.8) K/uL RBC 4.31 L (4.7-6.1) M/uL Hgb 13.8 L (14.0-18.0) g/dL Hct 43.4 (42-52) % MCV 100.7 H (80-100) fL MCH 32.0 (25-34) pg MCHC 31.8 L (32-36) g/dL RDW Std Deviation 50.2 H (36.4-46.3) fL RDW Coeff of Herman 13.6 (11.5-14.5) % Plt Count 123 L (130-400) K/uL MPV 11.1 H (7.4-10.4) fL APTT 55.3 H* (21.0-31.0) Seconds PTT Ratio 2.0 Sodium 142 (136-145) mmol/L Potassium 4.1 (3.5-5.1) mmol/L Chloride 111 H (98-107) mmol/L Carbon Dioxide 27 (21-32) mmol/L Anion Gap 4.0 (3-11) BUN 20 H (7-18) mg/dl Creatinine 1.25 (0.6-1.4) mg/dl Est Cr Clr Drug Dosing 44.8 ml/min Est GFR ( Amer) 62.2 Est GFR (Non-Af Amer) 53.7 BUN/Creatinine Ratio 16.2 (10-20) Glucose 105 H (70-99) mg/dl Calcium 7.9 L (8.5-10.1) mg/dl Phosphorus 3.0 (2.5-4.9) mg/dl Magnesium 2.1 (1.8-2.4) mg/dl 02/15/20 02/14/20 02/14/20 Range/Units 01:02 22:47 21:21 WBC (4.8-10.8) K/uL RBC (4.7-6.1) M/uL Hgb (14.0-18.0) g/dL Hct (42-52) % MCV (80-100) fL MCH (25-34) pg MCHC (32-36) g/dL RDW Std Deviation (36.4-46.3) fL RDW Coeff of Herman (11.5-14.5) % Plt Count (130-400) K/uL MPV (7.4-10.4) fL APTT 48.7 H* 133.0 H* Cancelled (21.0-31.0) Seconds PTT Ratio 1.7 4.8 Cancelled Sodium (136-145) mmol/L Potassium (3.5-5.1) mmol/L Chloride (98-107) mmol/L Carbon Dioxide (21-32) mmol/L Anion Gap (3-11) BUN (7-18) mg/dl Creatinine (0.6-1.4) mg/dl Est Cr Clr Drug Dosing ml/min Est GFR ( Amer) Est GFR (Non-Af Amer) BUN/Creatinine Ratio (-20) Glucose (70-99) mg/dl Calcium (8.5-10.1) mg/dl Phosphorus (2.5-4.9) mg/dl Magnesium (1.8-2.4) mg/dl 02/14/20 02/14/20 Range/Units 14:11 08:02 WBC (4.8-10.8) K/uL RBC (4.7-6.1) M/uL Hgb (14.0-18.0) g/dL Hct (42-52) % MCV (80-100) fL MCH (25-34) pg MCHC (32-36) g/dL RDW Std Deviation (36.4-46.3) fL RDW Coeff of Herman (11.5-14.5) % Plt Count (130-400) K/uL MPV (7.4-10.4) fL APTT 40.4 H 72.6 H* (21.0-31.0) Seconds PTT Ratio 1.4 2.6 Sodium (136-145) mmol/L Potassium (3.5-5.1) mmol/L Chloride (98-107) mmol/L Carbon Dioxide (21-32) mmol/L Anion Gap (3-11) BUN (7-18) mg/dl Creatinine (0.6-1.4) mg/dl Est Cr Clr Drug Dosing ml/min Est GFR ( Amer) Est GFR (Non-Af Amer) BUN/Creatinine Ratio (10-20) Glucose (70-99) mg/dl Calcium (8.5-10.1) mg/dl Phosphorus (2.5-4.9) mg/dl Magnesium (1.8-2.4) mg/dl Medications Administered Current Inpatient Medications Acetaminophen (Tylenol) 650 mg PO Q4H PRN PRN Reason: Pain or Fever Stop: 03/14/20 15:46 Aspirin (Ecotrin Ectab) 81 mg PO QAM [facility] Stop: 03/15/20 08:59 Last Admin: 02/14/20 10:31 Dose: 81 mg Documented by: Heparin Sodium/Dextrose (Heparin Sodium/Dextrose) 25,000 units in 500 mls @ 24 mls/hr IV .[id number] [facility]; Protocol Stop: 03/14/20 13:29 Last Titration: 02/15/20 06:16 Dose: 1,000 units/hr, 20 mls/hr Documented by: Sodium Chloride (Nss 1000ml) 1,000 mls @ 125 mls/hr IV .Q8H [facility] Stop: 03/14/20 16:14 Last Admin: 02/15/20 01:55 Dose: 125 mls/hr Documented by: Metoprolol Tartrate (Lopressor) 5 mg IV Q6H PRN PRN Reason: HR >120 Stop: 03/14/20 15:46 Polyethylene Glycol (Miralax Powder Packet) 17 gm PO DAILY PRN PRN Reason: Constipation Stop: 03/14/20 15:46 Potassium Phosphate (Phospha 250 Neutral 155-852-130 Mg) 1 tab PO BID [facility] Stop: 02/15/20 15:59 Last Admin: 02/14/20 23:02 Dose: 1 tab Documented by: Sotalol HCl (Betapace) 80 mg PO BID [facility] Stop: 03/15/20 09:14 Last Admin: 02/14/20 23:02 Dose: 80 mg Documented by:
--- NOTE | 2020-02-15 08:45 | Cardiology Progress Note ---
Date of Service February 15, 2020 Assessment & Plan (1) Atrial flutter with rapid ventricular response: (2) S/P AVR: (3) SOB (shortness of breath): (4) Edema of both lower legs: (5) S/P placement of cardiac pacemaker: The patient is tolerating his sotalol. I think by tomorrow he will have e nough doses. I do note on telemetry that he has had some short runs of atrial tachycardia but nothing sustained and hopefully the sotalol will maintain sinus rhythm for him. I will stop the heparin today and start him on Eliquis 2.5 mg twice daily. I believe the lower dose of Eliquis is indicated due to the patient's age and creatinine of 1.25. Subjective The patient had an uneventful night. He is tolerating his sotalol. Review of Systems Review of Systems: All systems reviewed & are unremarkable except as noted in HPI & below Nothing additional to add. Physical Exam Physical Exam: General: no acute distress and stated age Head: normocephalic, no masses, lesions, tenderness or abnormalities Eyes: conjunctiva are pink and non-injected, sclera clear Neck: supple, no adenopathy, no bruits, normal jugular venous pulse, no hepatojugular reflux Chest: normal shape and normal respiratory effort Lungs: clear to auscultation and percussion Cardiac Exam: - regular rate & rhythm, no murmurs gallops or rubs - normal S1, normal S2 Pulses: 2(+) throughout Abdomen: abdomen soft, non-tender, no abnormal masses and no hepatosplenomegaly Musculoskeletal: no gait disturbance, no joint inflammation, no deforming arthritis Extremities: no edema and no cyanosis Neuro: grossly normal exam Results & Data Vital Signs (Past 12 Hours) Vital Signs Temp Pulse Resp BP Pulse Ox 02/15/20 03:31 36.4 C L 81 16 137/85 96 02/14/20 23:51 36.4 C L 80 20 136/83 93 Laboratory Results Laboratory Results - last 24 hr 02/14/20 02/14/20 02/14/20 14:11 21:21 22:47 WBC RBC Hgb Hct MCV MCH MCHC RDW Std Deviation RDW Coeff of Herman Plt Count MPV APTT 40.4 H Cancelled 133.0 H* PTT Ratio 1.4 Cancelled 4.8 Sodium Potassium Chloride Carbon Dioxide Anion Gap BUN Creatinine Est Cr Clr Drug Dosing Est GFR ( Amer) Est GFR (Non-Af Amer) BUN/Creatinine Ratio Glucose Calcium Phosphorus Magnesium 02/15/20 02/15/20 02/15/20 01:02 04:19 04:19 WBC 6.10 RBC 4.31 L Hgb 13.8 L Hct 43.4 MCV 100.7 H MCH 32.0 MCHC 31.8 L RDW Std Deviation 50.2 H RDW Coeff of Herman 13.6 Plt Count 123 L MPV 11.1 H APTT 48.7 H* PTT Ratio 1.7 Sodium 142 Potassium 4.1 Chloride 111 H Carbon Dioxide 27 Anion Gap 4.0 BUN 20 H Creatinine 1.25 Est Cr Clr Drug Dosing 44.8 Est GFR ( Amer) 62.2 Est GFR (Non-Af Amer) 53.7 BUN/Creatinine Ratio 16.2 Glucose 105 H Calcium 7.9 L Phosphorus 3.0 Magnesium 2.1 02/15/20 04:19 WBC RBC Hgb Hct MCV MCH MCHC RDW Std Deviation RDW Coeff of Herman Plt Count MPV APTT 55.3 H* PTT Ratio 2.0 Sodium Potassium Chloride Carbon Dioxide Anion Gap BUN Creatinine Est Cr Clr Drug Dosing Est GFR ( Amer) Est GFR (Non-Af Amer) BUN/Creatinine Ratio Glucose Calcium Phosphorus Magnesium Medications Administered Current Inpatient Medications Acetaminophen (Tylenol) 650 mg PO Q4H PRN PRN Reason: Pain or Fever Stop: 03/14/20 15:46 Apixaban (Eliquis) 2.5 mg PO BID [facility] Stop: 03/16/20 08:59 Aspirin (Ecotrin Ectab) 81 mg PO QAM [facility] Stop: 03/15/20 08:59 Last Admin: 02/14/20 10:31 Dose: 81 mg Documented by: Sodium Chloride (Nss 1000ml) 1,000 mls @ 125 mls/hr IV .Q8H [facility] Stop: 03/14/20 16:14 Last Admin: 02/15/20 01:55 Dose: 125 mls/hr Documented by: Metoprolol Tartrate (Lopressor) 5 mg IV Q6H PRN PRN Reason: HR >120 Stop: 03/14/20 15:46 Polyethylene Glycol (Miralax Powder Packet) 17 gm PO DAILY PRN PRN Reason: Constipation Stop: 03/14/20 15:46 Potassium Phosphate (Phospha 250 Neutral 155-852-130 Mg) 1 tab PO BID [facility] Stop: 02/15/20 15:59 Last Admin: 02/14/20 23:02 Dose: 1 tab Documented by: Sotalol HCl (Betapace) 80 mg PO BID [facility] Stop: 03/15/20 09:14 Last Admin: 02/14/20 23:02 Dose: 80 mg Documented by:
[2020-02-15] MEDS: SOTALOL HCL 80 MG TAB PO SCH ×2 (09:56→20:49)
[2020-02-15] MEDS: POT PHOSPHATE MONOBASIC W/ SOD TAB PO SCH (09:56)
[2020-02-15] MEDS: APIXABAN 2.5 MG TAB PO SCH ×2 (09:57→20:50)
[2020-02-15] MEDS: ASPIRIN 81 MG ECTAB PO SCH (10:53)
--- NOTE | 2020-02-15 11:32 | Electrocardiogram Report ---
Test Reason : Blood Pressure : / mmHG Vent. Rate : 080 BPM Atrial Rate : 227 BPM P-R Int : 000 ms QRS Dur : 158 ms QT Int : 462 ms P-R-T Axes : 000 -82 094 degrees QTc Int : 532 ms Ventricular-paced rhythm Abnormal ECG When compared with ECG of 14-FEB-2020 06:24, No significant change was found Confirmed by Frank Neumann ([id number]) on 02/15/2020 11:31:42 AM Referred By: REFERRED SELF Confirmed By:Frank Neumann
[2020-02-16 04:37] LABS: BUN Creatinine Ratio 18.2 (10-20); Creatinine Clr Calc Pharmacy 49.6 ml/min; Est GFR (African American) 70.3; Est GFR (Non-African American) 60.6; Phosphorus 2.6 mg/dl (2.5-4.9); Potassium 4.3 mmol/L (3.5-5.1)
[2020-02-16 04:40] LABS: Partial Thromboplastin Ratio 1.1; Partial Thromboplastin Time 29.6 Seconds (21.0-31.0)
[2020-02-16] MEDS: ASPIRIN 81 MG ECTAB PO SCH (09:11)
[2020-02-16] MEDS: APIXABAN 2.5 MG TAB PO SCH (09:11)
[2020-02-16] MEDS: SOTALOL HCL 80 MG TAB PO SCH (09:11)
--- NOTE | 2020-02-16 10:07 | Cardiology Progress Note ---
Date of Service February 16, 2020 Assessment & Plan (1) Atrial flutter with rapid ventricular response: (2) S/P AVR: (3) SOB (shortness of breath): (4) Edema of both lower legs: (5) S/P placement of cardiac pacemaker: I reviewed the patient's telemetry. He is mostly paced and at times when there is a conduction change it is because his sinus mechanism is above the rate of the pacemaker. I do not believe that he has had a return of atrial flutter. At this point I believe he can be discharged to outpatient follow-up. I will arrange follow-up through our clinic. Subjective Patient had an uneventful night. He feels well with no new complaints. Review of Systems Review of Systems: All systems reviewed & are unremarkable except as noted in HPI & below Nothing additional to add. Physical Exam Physical Exam: General: no acute distress and stated age Head: normocephalic, no masses, lesions, tenderness or abnormalities Eyes: conjunctiva are pink and non-injected, sclera clear Neck: supple, no adenopathy, no bruits, normal jugular venous pulse, no hepatojugular reflux Chest: normal shape and normal respiratory effort Lungs: clear to auscultation and percussion Cardiac Exam: - regular rate & rhythm, no murmurs gallops or rubs - normal S1, normal S2 Pulses: 2(+) throughout Abdomen: abdomen soft, non-tender, no abnormal masses and no hepatosplenomegaly Musculoskeletal: no gait disturbance, no joint inflammation, no deforming ar thritis Extremities: no edema and no cyanosis Neuro: grossly normal exam Results & Data Vital Signs (Past 12 Hours) Vital Signs Temp Pulse Pulse Pulse Resp BP Pulse Ox 02/16/20 09:27 80 02/16/20 08:10 36.6 C 79 16 145/83 H 95 02/16/20 08:00 80 02/16/20 03:35 36.8 C 79 18 157/95 H 95 02/16/20 00:00 80 02/15/20 23:11 36.6 C 80 18 123/74 95 Laboratory Results Laboratory Results - last 24 hr 02/16/20 02/16/20 04:05 04:05 APTT 29.6 PTT Ratio 1.1 Sodium 141 Potassium 4.3 Chloride 111 H Carbon Dioxide 27 Anion Gap 3.0 BUN 21 H Creatinine 1.13 Est Cr Clr Drug Dosing 49.6 Est GFR ( Amer) 70.3 Est GFR (Non-Af Amer) 60.6 BUN/Creatinine Ratio 18.2 Glucose 106 H Calcium 8.0 L Phosphorus 2.6 Magnesium 2.0 Diagnostic Findings I reviewed the patient's telemetry. He has mostly a paced rhythm but at times his sinus mechanism is above the lower cut off of the pacemaker and there appears to be a conduction change but that is his normal heart rhythm. Medications Administered Current Inpatient Medications Acetaminophen (Tylenol) 650 mg PO Q4H PRN PRN Reason: Pain or Fever Stop: 03/14/20 15:46 Apixaban (Eliquis) 2.5 mg PO BID [facility] Stop: 03/16/20 08:59 Last Admin: 02/16/20 09:11 Dose: 2.5 mg Documented by: Aspirin (Ecotrin Ectab) 81 mg PO QAM [facility] Stop: 03/15/20 08:59 Last Admin: 02/16/20 09:11 Dose: 81 mg Documented by: Metoprolol Tartrate (Lopressor) 5 mg IV Q6H PRN PRN Reason: HR >120 Stop: 03/14/20 15:46 Polyethylene Glycol (Miralax Powder Packet) 17 gm PO DAILY PRN PRN Reason: Constipation Stop: 03/14/20 15:46 Sotalol HCl (Betapace) 80 mg PO BID [facility] Stop: 03/15/20 09:14 Last Admin: 02/16/20 09:11 Dose: 80 mg Documented by:
--- NOTE | 2020-02-16 12:00 | Hospitalist Progress Note ---
Date of Service February 16, 2020 Assessment & Plan (1) Atrial fibrillation with rapid ventricular response: This is an 79yo M with a PMH of paroxysmal A fib s/p PVI and left atrial appendage clip, history of aortic valve replacement in 2018, history of complete heart block s/o pacemaker placement, CKD III and HTN who presents with evidence of atrial fibrillation with RVR on routine pacemaker check in the office. -Symptomatic A flutter with RVR during pacer interrogation -History of paroxysmal A fib s/p PVI and left atrial appendage clip -Received 5mg IV Lopressor in ED, HR paced at 80 -Started on heparin. IV Lopressor 5mg Q6H PRN for HR >120. Routine TTE ordered. Monitor on telemetry -Monitor electrolytes closely. Replacing phos -Cardiology consulted-patient was started on sotalol and transitioned to Eliquis from IV heparin -Patient is tolerating sotalol well -Eliquis 2.5 mg twice a day started. Lower dose indicated due to patient's age and creatinine Outpatient cardiology follow-up (2) Bilateral lower extremity edema: Prescribed lasix for intermittent BLE edema. Has not been taking but 2+ BLE on admission -Denies orthopnea or weight gain but has exertional dyspnea. CXR without evidence of volume overload. - TTE obtained, shows normal LV size with moderate concentric LVH. EF 60 to 65%. No segmental LV wall motion abnormalities noted. Grade 2 diastolic dysfunction. Bioprosthetic aortic valve in place with normal gradients and no regurg. Moderate mitral annular calcification with mild prolapse of the anterior leaflet. Moderate regurg with a posteriorly directed jet. No stenosis -Discussed with cardiology, at this point do not recommend to take Lasix, pt will be seen in cardiology clinic soon and at that time they can discuss further need for Lasix (3) S/P placement of cardiac pacemaker: History of complete heart block. PM placed 2 years ago (4) Aortic stenosis: S/p AV replacement in 2018. Has been taking baby aspirin daily (5) CAD (coronary artery disease): H/o non-obstructive disease. Continue aspirin, Lopressor now held, as patient started sotalol (6) HTN (hypertension): Previously on home Lopressor , now started on sotalol Continue to monitor BP (7) CKD (chronic kidney disease), stage III: baseline 1.2-1.3 Monitor closely with daily BMP , currently at baseline DVT Ppx: IV heparin stopped, transitioned to Eliquis Code status: FULL PCP: Dr. Segura ([place]) Dispo: Plan to return home once medically stable. Admission and Anticipated Discharge Date Admission Date: February 13, 2020 Subjective No acute events overnight. Patient is sitting up in bed, eating lunch, in no acute distress. Patient denies any palpitations, chest pain, shortness of breath, fevers, chills, abdominal pain nausea or vomiting. He also denies any dizziness or lightheadedness. Discussed with cardiology, recommend to discharge patient home with close cardiology follow-up which will be arranged for the patient. Review of Systems Review of Systems: All systems reviewed & are unremarkable except as noted in HPI & below Constitutional: no fever and no chills Respiratory: no cough and no dyspnea Cardiovascular: no chest pain and no palpitations Gastrointestinal: no abdominal pain, no nausea and no vomiting Physical Exam Physical Exam: General Appearance: WD/WN, vitals as above, NAD, sitting up in bed, pleasant, conversing easily Head: normocephalic, atraumatic Eyes: normal inspection, PERRL, conjunctivae normal, anicteric sclerae ENT: external ear and nose normal, oropharynx normal Neck: trachea midline, no thyromegaly normal visual inspection Respiratory: normal respiratory effort, lungs clear to auscultation, no wheeze, rales, rhonchi. Normal insp/exp effort, no accessory muscle use Cardiovascular: regular rate & rhythm, + soft systolic murmur, normal peripheral pulses. trace BLE edema Chest: normal inspection of chest Abdomen/GI: normal bowel sounds, soft, nontender, nondistended Extremities/Musculoskeletal: no cyanosis or clubbing, extremities motor strength 5/5, moves extremities spontaneously Neurologic: PERRL, EOMI, accommodation nl, no face palsy, no dysarthria, CN's II-XI intact bilaterally and moves all extremities Psychiatric: A+Ox3, euthymic affect Skin: no rashes, normal color, warm/dry Results & Data Results & Data ([facility]) Vital Signs (Past 12 Hours) Vital Signs Temp Pulse Pulse Pulse Resp BP Pulse Ox 02/16/20 09:27 80 02/16/20 08:10 36.6 C 79 16 145/83 H 95 02/16/20 08:00 80 02/16/20 03:35 36.8 C 79 18 157/95 H 95 02/16/20 00:00 80
--- NOTE | 2020-02-16 12:03 | Discharge Summary ---
Date of Service February 16, 2020 Admission HPI Per Admitting Provider This is an 79yo M with a PMH of paroxysmal A fib s/p PVI and left atrial appendage clip, history of aortic valve replacement in 2018, history of complete heart block s/o pacemaker placement, CKD III and HTN who presents with evidence of atrial fibrillation with RVR on routine pacemaker check in the office. States that he has been feeling more fatigued than usual with exertional dyspnea over the past few months. Denies any lightheadedness, chest pain or palpitations. No fever, chills, nausea, vomiting, abdominal pain, dysuria, diarrhea or constipation. Has been taking Lopressor 25mg BID and Aspirin 81mg daily. Does not take Lasix regularly. Denies history of bleeding issues. Follows with Dr. Piper in clinic, who is aware of patient and will evaluate during admission. Admission Exam Per Admitting Provider General Appearance: WD/WN, vitals as above, NAD, sitting up in bed, pleasant, conversing easily Head: normocephalic, atraumatic Eyes: normal inspection, PERRL, conjunctivae normal, anicteric sclerae ENT: external ear and nose normal, oropharynx normal Neck: trachea midline, no thyromegaly normal visual inspection Respiratory: normal respiratory effort, lungs clear to auscultation, no wheeze, rales, rhonchi. Normal insp/exp effort, no accessory muscle use Cardiovascular: regular rate & rhythm, + systolic murmur, normal peripheral pulses. 2+ BLE pitting edema Chest: normal inspection of chest Abdomen/GI: normal bowel sounds, soft, nontender, no hepatosplenomegaly. Reducible umbilical hernia Extremities/Musculoskeletal: no cyanosis or clubbing, extremities motor strength 5/5 Neurologic: PERRL, EOMI, accommodation nl, no face palsy, no dysarthria, CN's II-XI intact bilaterally and moves all extremities Psychiatric: A+Ox3, euthymic affect Skin: no rashes, normal color, warm/dry Principal Diagnosis Atrial flutter with RVR Discharge Exam General Appearance: WD/WN, vitals as above, NAD, sitting up in bed, pleasant, conversing easily Head: normocephalic, atraumatic Eyes: normal inspection, PERRL, conjunctivae normal, anicteric sclerae ENT: external ear and nose normal, oropharynx normal Neck: trachea midline, no thyromegaly normal visual inspection Respiratory: normal respiratory effort, lungs clear to auscultation, no wheeze, rales, rhonchi. Normal insp/exp effort, no accessory muscle use Cardiovascular: regular rate & rhythm, + soft systolic murmur, normal peripheral pulses. trace BLE edema Chest: normal inspection of chest Abdomen/GI: normal bowel sounds, soft, nontender, nondistended Extremities/Musculoskeletal: no cyanosis or clubbing, extremities motor strength 5/5, moves extremities spontaneously Neurologic: PERRL, EOMI, accommodation nl, no face palsy, no dysarthria, CN's II-XI intact bilaterally and moves all extremities Psychiatric: A+Ox3, euthymic affect Skin: no rashes, normal color, warm/dry Discharge Data Allergies Allergy/AdvReac Type Severity Reaction Status Date / Time ciprofloxacin Allergy Intermediate Unknown Unverified 02/13/20 13:23 Consultations 02/13/20 13:30 ED Decision to Admit Stat 02/13/20 15:47 Consult Cardiology Routine Hospital Course (1) Atrial fibrillation with rapid ventricular response: This is an 79yo M with a PMH of paroxysmal A fib s/p PVI and left atrial appendage clip, history of aortic valve replacement in 2018, history of complete heart block s/o pacemaker placement, CKD III and HTN who presents with evidence of atrial fibrillation with RVR on routine pacemaker check in the office. -Symptomatic A flutter with RVR during pacer interrogation -History of paroxysmal A fib s/p PVI and left atrial appendage clip -Received 5mg IV Lopressor in ED, HR paced at 80 -Started on heparin. IV Lopressor 5mg Q6H PRN for HR >120. Routine TTE ordered. Monitor on telemetry -Monitor electrolytes closely. Replacing phos -Cardiology consulted-patient was started on sotalol and transitioned to Eliquis from IV heparin -Patient is tolerating sotalol well -Eliquis 2.5 mg twice a day started. Lower dose indicated due to patient's age and creatinine Outpatient cardiology follow-up (2) Bilateral lower extremity edema: Prescribed lasix for intermittent BLE edema. Has not been taking but 2+ BLE on admission -Denies orthopnea or weight gain but has exertional dyspnea. CXR without evidence of volume overload. - TTE obtained, shows normal LV size with moderate concentric LVH. EF 60 to 65%. No segmental LV wall motion abnormalities noted. Grade 2 diastolic dysfunction. Bioprosthetic aortic valve in place with normal gradients and no regurg. Moderate mitral annular calcification with mild prolapse of the anterior leaflet. Moderate regurg with a posteriorly directed jet. No stenosis -Discussed with cardiology, at this point do not recommend to take Lasix, pt will be seen in cardiology clinic soon and at that time they can discuss further need for Lasix (3) S/P placement of cardiac pacemaker: History of complete heart block. PM placed 2 years ago (4) Aortic stenosis: S/p AV replacement in 2018. Has been taking baby aspirin daily (5) CAD (coronary artery disease): H/o non-obstructive disease. Continue aspirin, Lopressor now held, as patient started sotalol (6) HTN (hypertension): Previously on home Lopressor , now started on sotalol Continue to monitor BP (7) CKD (chronic kidney disease), stage III: baseline 1.2-1.3 Monitor closely with daily BMP , currently at baseline PCP: Dr. Segura ([place]) Dispo: Plan to return home once medically stable. Total Time Total Time Spent Total Time Spent (In Minutes): 40 Total Time Includes: Examination of the Patient, Discharge Planning, Medication Reconciliation and Communication With Other Providers Discharge Plan Discharge Items Patient Disposition: Home - Self-Care Reason For Visit: A FIB WITH RVR Discharge Diagnosis: Atrial flutter with RVR Activity: Per Instructions section Non-emergency contact: Acquisition Associate Call non-emergency contact if: you have any medication questions and your symptoms worsen Follow-up/Referrals: Waqas Segura [Primary Care Provider] - Diet: Heart Healthy Addtl Attending Provider Instructions: Do not take metoprolol or furosemide. Start taking sotalol and Eliquis as prescribed. Close cardiology follow-up will be arranged for you. If you have any questions regarding your medications, call cardiology office. Pending Studies at Discharge: No Stand-Alone Forms: My [employer], Smoking Cessation Medications and DC Order Prescriptions: New Eliquis 2.5 mg Tablet 2.5 mg PO BID 30 Days Qty: 60 RF: 0 sotalol 80 mg Tablet 80 mg PO BID 30 Days Qty: 60 RF: 0 Continued amoxicillin 500 mg Capsule 500 mg PO DIRECTED PRN (Reason: premedication for dental appt) Qty: 21 RF: 0 aspirin 81 mg Tablet,Delayed Release (Dr/Ec) 81 mg PO QAM RF: 0 Discontinued metoprolol tartrate 25 mg Tablet 25 mg PO BID Qty: 0 RF: 0 furosemide [Lasix] 40 mg Tablet 40 mg PO DAILY PRN (Reason: swelling) Qty: 0 RF: 0 potassium chloride 10 mEq Tablet Extended Release 10 meq PO DAILY PRN (Reason: take with lasix) Qty: 0 RF: 0 Discharge Orders: Discharge Order (Routine); Ordered 02/16/20 Ordered By: Aniceto Bateman Admission Data Admit Date/Time: 02/13/20 13:45 Attending Provider: Aniceto Bateman Admit Provider: Afshin Benavidez Primary Care Provider: Waqas Segura Other Providers: Afshin Benavidez ; Anadn Piper
[2020-02-16] MEDS ORDERED: APIXABAN 2.5 MG TAB PO SCH (14:30)
[2020-02-16] MEDS ORDERED: SOTALOL HCL 80 MG TAB PO SCH (14:30)
== END 2020-02-16 14:45 | disposition home or self-care (01) | DRG 310 ==
LOC: ED 11:59 → 1E 13:45 → SUATTDRO 13:45 → 1E 15:20 → 2S 02-15 14:04

== ENCOUNTER 2023-07-27 10:26 | Observation (INO) ==
--- NOTE | 2023-07-27 11:12 | Emergency Department Note ---
Impression & Plan COVID-19, Tachypnea, Weakness ED Provider Note Provider: Karlos Oneill MD DATE OF SERVICE: 07/27/2023 CHIEF COMPLAINT: Shortness of breath, sore throat HISTORY OF PRESENT ILLNESS: Patient is a 82-year-old gentleman past medical history including aortic stenosis status post valve replacement, cardiac pacemaker, paroxysmal atrial fibrillation, heart block, CKD, leg edema presented today referred from the [employer] works during found to be tachypneic there. Patient states has been ill for about a week and a half. Started weekend before with a sore throat and some congestion. Rested in bed for several days. States he was started to feel bit better but then over the last day or so has had increased cough and this morning felt weak and unsteady. Family are present state it seems that he is breathing harder. Patient states he stopped about 3 weeks ago some of his medications including his metoprolol, Lasix, and aspirin. Patient states he has a little swelling of his legs at times. No falls reported. Denies any nausea vomiting or abdominal pain currently. Some sore throat still. Has followed extensively with [facility] cardiology and electrophysiology. PAST MEDICAL HISTORY: As noted above MEDICATIONS: Has stopped her medications SOCIAL HISTORY: Non-smoker, lives by himself PHYSICAL EXAM: GENERAL: alert and oriented in no acute distress on stretcher Head: normocephalic and atraumatic EYES: No injection, discharge or icterus. NECK: Trachea midline. ENT: Mucous membranes pink and moist. Pharynx without erythema or exudate. Uvula midline. LUNGS: Airway patent. No retractions but is tachypneic. Breath sounds clear with good air entry bilaterally. HEART: Regular rate and rhythm. No chest wall tenderness with left upper chest pacemaker noted subcutaneously ABDOMEN: Soft and non-tender, without guarding or rebound. SKIN: Acyanotic, warm, dry, without rashes EXTREMITIES: Without tenderness with 1-2+ edema of the lower extremities. NEUROLOGICAL: No focal deficits. No aphasia. No facial droop or slurred speech. Normal strength and tone in the extremities. Sensation to gross touch normal. Ambulatory. EK beats beats per minute Ventricular paced rhythm without PVC. Interventricular conduction delay consistent with pacing. QTc 528. What appears to be A-fib or flutter underlying this. Compared to March 24, 2022 heart rate today slower. CONTINUOUS CARDIAC MONITORING: was ordered and showed a heart rate of bpm in ventricular-paced with heart rate of 60s Patient's laboratory studies and imaging reviewed. Differential includes Reactive airway disease, pneumonia, pneumothorax, COPD, CHF, infections, cardiac ischemia, pulmonary embolism, musculoskeletal, gastrointestinal, as well as other pathologies. IMPRESSION/MEDICAL DECISION MAKING: Patient tachypneic but not hypoxic. Nursing initially placed on low but oxygen for comfort. No history of smoking. Recent illness over the past 10 days. Has also stopped medications including Lasix. Significant cardiac history. Has pacemaker and interrogated and per company financial services sales representative no acute falls reported with this. Blood work here without anemia. Mild leukopenia noted this is new since March. Mild thrombocytopenia noted and has been chronic on the last several blood test in the system. Patient with stable CKD without evidence of acute thyroid dysfunction or hepatitis. Anion gap at 12 but no significant sodium or potassium derangements noted. Troponin normal at 15.7. BNP is somewhat elevated 580. Does have some mild swelling of the lower legs. With his cardiac history including valve dysfunction question if he may have some component of heart failure given his lack of furosemide usage. Respiratory viral panel sent given illness complaint; this does return positive for COVID-19 likely spending his symptoms. Chest x-ray per radiology report without findings of pleural effusion but question some multifocal airspace opacities. Patient lives alone with stairs and generalized weakness. While not horribly impressive for bacterial notably likely pneumonitis and COVID causing chest x-ray changes. Discussion with him and family given his weakness and symptoms discussed further care here at the hospital. They wish for this. Hospitalist contacted. Patient is not vaccinated for COVID & has not had COVID before. DIAGNOSIS: COVID-19, shortness of breath DISPOSITION: Hospitalist will evaluate Patient was agreeable with this plan. Past Med/Surg History Medical History Atrial fibrillation Paroxysmal AFIB Chronic venous insufficiency CKD (chronic kidney disease), stage III History of nephrolithiasis History of nonmelanoma skin cancer Hypertension Macrocytosis without anemia Pacemaker [employer], model [id number]; Right atrial and ventricular lead Valvular heart disease Severe ; mild AI; mild MS; mild TR Surgical History History of back surgery History of heart valve replacement History of skin surgery Hx of cataract surgery Hx of elbow surgery Hx of hernia repair S/P placement of cardiac pacemaker Family History Mother Myocardial infarction Other Heart disease Denies family history of Ovarian cancer Prostate cancer Breast cancer Colorectal cancer Social History Smoking Status: Never smoker Second Hand Exposure: Yes; Do You Dip or Chew Tobacco: No; Hx Alcohol Use: No Hx Substance Use: No Preferred Language: Tajik Communication Ability: Effective Visual Impairment: No Limitations Hearing Ability: Normal Crime Lab Analyst Required: No Beliefs That Will Affect Care: None marital status: Single Current Living Situation: Alone current occupational status: retired current occupation: retired from construction, and then in [employer] How many Children do You have: 0 Feels Safe at Home: Yes Childhood Exposure to Second-Hand Smoke: Yes Diet: regular Dental Care, Regularly: Yes Physical Activity Frequency: Daily Seatbelt Use: always Sunscreen Use: No Assistive Devices: None Allergies Allergies Allergy/AdvReac Type Severity Reaction Status Date / Time amiodarone Allergy Severe Almost Unverified 07/27/23 12:01 took my life, I don't want it anymore ciprofloxacin Allergy Intermediate Unknown Verified 07/27/23 12:01 Home Meds Home Medications Medication Instructions Recorded Confirmed amoxicillin 500 mg capsule 500 mg PO DIRECTED PRN 06/26/17 07/27/23 premedication for dental appt #21 caps triamcinolone acetonide 0.1 % 1 applic topical BID PRN Itching 04/20/21 07/27/23 topical cream furosemide 40 mg tablet 0 mg PO QAM 07/27/23 07/27/23 metoprolol succinate 25 mg 0 mg PO QAM 07/27/23 07/27/23 tablet,extended release 24 hr Results & Data (ED) Vital Signs Vital Signs - 24 hr 07/27/23 10:30 07/27/23 10:30 07/27/23 10:35 Temperature 36.8 C Temperature Source Oral Pulse Rate 60 62 Respiratory Rate 32 H Respiratory Effort / Characteristics Non-Labored Respiratory Depth Normal Respiratory Pattern Tachypnea Blood Pressure 152/78 H Blood Pressure Mean 102 Pulse Oximetry 98 98 Oxygen Delivery Method Room Air Room Air Oxygen Flow Rate 0 Sepsis Recent Fever Within 48 Hours No Sepsis New/Unexplained Change in Mental Status N/A Sepsis Action Taken by Nursing No Action Required Oxygen Flow Rate - Titration 1 Pulse Oximetry Post Tiitration 98 07/27/23 10:48 Temperature Temperature Source Pulse Rate Respiratory Rate Respiratory Effort / Characteristics Respiratory Depth Respiratory Pattern Blood Pressure Blood Pressure Mean Pulse Oximetry 98 Oxygen Delivery Method Nasal Cannula Oxygen Flow Rate 1 Sepsis Recent Fever Within 48 Hours Sepsis New/Unexplained Change in Mental Status Sepsis Action Taken by Nursing Oxygen Flow Rate - Titration Pulse Oximetry Post Tiitration Laboratory Data 07/27/23 10:35 07/27/23 10:35 Lab Results 07/27/23 Range/Units 10:35 WBC 4.38 L (4.8-10.8) K/ul RBC 4.63 L (4.70-6.10) M/uL Hgb 15.9 (14.0-18.0) g/dl Hct 44.4 (42.0-52.0) % MCV 95.9 (80.0-100.0) fL MCH 34.3 H (25.0-34.0) pg MCHC 35.8 (32.0-36.0) g/dL RDW Std Deviation 45.4 (36.4-46.3) fL RDW Coeff of Herman 12.9 (11.5-14.5) % Plt Count 128 L (130-400) K/uL MPV 11.8 (9.4-12.4) fL Immature Gran % (Auto) 0.9 % Neut % (Auto) 65.3 % Lymph % (Auto) 19.9 % [place] % (Auto) 13.2 % Eos % (Auto) 0.2 % Baso % (Auto) 0.5 % Neut # (Auto) 2.86 (1.40-6.50) K/uL Lymph # (Auto) 0.87 L (1.20-3.40) K/uL [place] # (Auto) 0.58 (0.11-0.59) K/uL Eos # (Auto) 0.01 (0.00-0.50) K/uL Baso # (Auto) 0.02 (0.00-0.20) K/uL Immature Gran # (Auto) 0.04 (0.01-0.20) K/uL PT 12.4 H (9.0-12.0) Seconds INR 1.1 (0.9-1.1) Sodium 136 (136-145) mmol/L Potassium 4.2 (3.5-5.1) mmol/L Chloride 102 (98-107) mmol/L Carbon Dioxide 22 (21-32) mmol/L Anion Gap 12 H (3-11) BUN 28 H (6-23) mg/dl Creatinine 1.29 (0.6-1.4) mg/dl Est Cr Clr Drug Dosing 44.8 ml/min Est GFR ( Amer) 58.6 ml/min Est GFR (Non-Af Amer) 50.6 ml/min BUN/Creatinine Ratio 21.7 H (10-20) Glucose 133 H (70-99(Fasting)) mg/dl Calcium 8.9 (8.6-10.3) mg/dl Magnesium 2.1 (1.7-2.4) mg/dl Total Bilirubin 1.4 H (0.2-1.0) mg/dl AST 35 (13-39) U/L ALT 22 (7-52) U/L Alkaline Phosphatase 76 (34-104) U/L Troponin I High Sens 15.7 (0-20) pg/ml C-Reactive Protein 3.26 H (0-0.5) mg/dl B-Natriuretic Peptide 580 H (0-100) pg/ml Total Protein 7.5 (6.0-8.3) gm/dl Albumin 4.0 (3.4-5.0) gm/dl Globulin 3.5 (2.5-4.0) gm/dl Albumin/Globulin Ratio 1.1 (0.9-2) TSH 3.226 (0.300-4.500) uIu/ml Adenovirus (PCR) Not Detected (NotDetected) B. pertussis DNA (PCR) Not Detected (NotDetected) B.parapertussis DNA PCR Not Detected (NotDetected) C. pneumoniae DNA (PCR) Not Detected (NotDetected) Coronavirus OC43 (PCR) Not Detected (NotDetected) Coronavirus HKU1 (PCR) Not Detected (NotDetected) Coronavirus 229E (PCR) Not Detected (NotDetected) SARS-CoV-2 (PCR) DETECTED A* (NotDetected) Coronavirus NL63 (PCR) Not Detected (NotDetected) Human Metapneumovir PCR Not Detected (NotDetected) Influenza Type A (PCR) Not Detected (NotDetected) Influenza Type B (PCR) Not Detected (NotDetected) M. pneumoniae (PCR) Not Detected (NotDetected) Parainfluenza 1 (PCR) Not Detected (NotDetected) Parainfluenza 2 (PCR) Not Detected (NotDetected) Parainfluenza 3 (PCR) Not Detected (NotDetected) Parainfluenza 4 (PCR) Not Detected (NotDetected) RSV (PCR) Not Detected (NotDetected) Entero/Rhino (PCR) Not Detected (NotDetected) Imaging Data Radiologist's Impression: Chest X-Ray 07/27/23 10:43 XR chest 1V portable CLINICAL HISTORY: sob TECHNIQUE: Single frontal radiograph of the chest was obtained. Comparison: Comparison is made to chest radiograph 08/22/2021 FINDINGS: Median sternotomy wires and dual-lead pacemaker noted. The cardiomediastinal silhouette is stably enlarged. Atrial appendage clip is again seen. Multifocal airspace opacities are prominently in the right lung. No evidence of pleural effusion or pneumothorax. IMPRESSION: Multifocal airspace opacities, predominantly in the right lung, may represent atelectasis, pneumonia, and/or aspiration. ACT 112: Negative or not required by law. Electronically signed by: Desmond Sofia M.D. 07/27/2023 11:59 AM Discharge Plan Visit Data Chief Complaint: Weakness Stated Complaint: WEAK, SOB ED Provider: Karlos Oneill Discharge Problem: COVID-19, Tachypnea, Weakness Patient Disposition: Being Evaluated by Hospitalist Forms Stand Alone Forms: My [facility] Prescriptions Prescriptions: No Action amoxicillin 500 mg Capsule 500 mg PO DIRECTED PRN (Reason: premedication for dental appt) Qty: 21 Patient Comments: TAKE PRIOR TO DENTAL APPOINTMENTS triamcinolone acetonide 0.1 % cream 1 applic topical BID PRN (Reason: Itching) furosemide 40 mg tablet 0 mg PO QAM Rx Instructions: Per pt: "I stopped taking that because it makes me urinate too much, just holding it for now." Original directions: 40mg by mouth once in the morning metoprolol succinate 25 mg tablet extended release 24 hr 0 mg PO QAM Rx Instructions: Per pt: "I feel just fine not taking it, so I'm holding it for now." Original directions: 12.5mg by mouth in the morning Referrals Referrals: Scarlet Barreto MD [Primary Care Provider] -
[2023-07-27 11:17] LABS: Basophils # (auto) 0.02 K/uL (0.00-0.20); Basophils % (auto) 0.5 %; Eosinophils # (auto) 0.01 K/uL (0.00-0.50); Eosinophils % (auto) 0.2 %; Hematocrit (blood only) 44.4 % (42.0-52.0); Hemoglobin 15.9 g/dl (14.0-18.0); Immature Granulocytes # (auto) 0.04 K/uL (0.01-0.20); Immature Granulocytes % (auto) 0.9 %; Lymphocytes # (auto) 0.87 K/uL (1.20-3.40); Lymphocytes % (auto) 19.9 %; Mean Corpuscular Hemoglobin 34.3 pg (25.0-34.0); Mean Corpuscular Hgb Conc 35.8 g/dL (32.0-36.0); Mean Corpuscular Volume 95.9 fL (80.0-100.0); Mean Platelet Volume 11.8 fL (9.4-12.4); Monocytes # (auto) 0.58 K/uL (0.11-0.59); Monocytes % (auto) 13.2 %; Neutrophils # (auto) 2.86 K/uL (1.40-6.50); Neutrophils % (auto) 65.3 %; Platelet Count 128 K/uL (130-400); RDW Coefficient of Variation 12.9 % (11.5-14.5); RDW Standard Deviation 45.4 fL (36.4-46.3); Red Blood Count 4.63 M/uL (4.70-6.10); White Blood Count 4.38 K/ul (4.8-10.8)
[2023-07-27 11:24] LABS: Albumin Globulin Ratio 1.1 (0.9-2); BUN Creatinine Ratio 21.7 (10-20); Bilirubin,Total 1.4 mg/dl (0.2-1.0); Calcium 8.9 mg/dl (8.6-10.3); Creatinine Clr Calc Pharmacy 44.8 ml/min; Est GFR (African American) 58.6 ml/min; Est GFR (Non-African American) 50.6 ml/min; Globulin 3.5 gm/dl (2.5-4.0); Magnesium 2.1 mg/dl (1.7-2.4); Potassium 4.2 mmol/L (3.5-5.1); Total Protein 7.5 gm/dl (6.0-8.3)
[2023-07-27 11:30] LABS: Troponin I High Sensitivity 15.7 pg/ml (0-20)
[2023-07-27 11:34] LABS: INR 1.1 (0.9-1.1); Prothrombin Time 12.4 Seconds (9.0-12.0)
[2023-07-27 11:40] LABS: Thyroid Stimulating Hormone 3.226 uIu/ml (0.300-4.500)
[2023-07-27 11:55] LABS: Adenovirus PCR Not Detected (NotDetected); Bordetella parapertussis PCR Not Detected (NotDetected); Bordetella pertussis PCR Not Detected (NotDetected); Chlamydia pneumoniae PCR Not Detected (NotDetected); Coronavirus 229E PCR Not Detected (NotDetected); Coronavirus HKU1 PCR Not Detected (NotDetected); Coronavirus NL63 PCR Not Detected (NotDetected); Coronavirus OC43PCR Not Detected (NotDetected); Human Metapneumovirus PCR Not Detected (NotDetected); Influenza A PCR Not Detected (NotDetected); Influenza B PCR Not Detected (NotDetected); Mycoplasma pneumoniae PCR Not Detected (NotDetected); Parainfluenza Virus 1 PCR Not Detected (NotDetected); Parainfluenza Virus 2 PCR Not Detected (NotDetected); Parainfluenza Virus 3 PCR Not Detected (NotDetected); Parainfluenza Virus 4 PCR Not Detected (NotDetected); Respiratory Syncytial VirusPCR Not Detected (NotDetected); Rhinovirus/Enterovirus PCR Not Detected (NotDetected)
[2023-07-27 11:58] LABS: Coronavirus CoV-2 (COVID19)PCR DETECTED (NotDetected)
--- NOTE | 2023-07-27 12:01 | XRay Report ---
XR chest 1V portable CLINICAL HISTORY: sob TECHNIQUE: Single frontal radiograph of the chest was obtained. Comparison: Comparison is made to chest radiograph 08/22/2021 FINDINGS: Median sternotomy wires and dual-lead pacemaker noted. The cardiomediastinal silhouette is stably enl arged. Atrial appendage clip is again seen. Multifocal airspace opacities are prominently in the righ t lung. No evidence of pleural effusion or pneumothorax. IMPRESSION: Multifocal airspace opacities, predominantly in the right lung, may represent atelectasis, pneumonia, and/or aspiration. ACT 112: Negative or not required by law. Electronically signed by: Desmond Sofia M.D. 07/27/2023 11:59 AM
--- NOTE | 2023-07-27 12:43 | History & Physical Report ---
Date of Service July 27, 2023 Assessment & Plan (1) COVID-19: Plan: Unvaccinated and never had previously No hypoxia but generalized fatigue Outside window for antivirals (2) Weakness: Plan: PT/OT (3) HTN (hypertension): Plan: Restart his usual Lasix 40mg PO daily, he self discontinued this 2-3 weeks ago Some peripheral edema on exam and BNP increased but no significant hypervolemic on exam without JVD (4) Aortic stenosis: Plan: s/p AV replacement 2017 (5) Atrial fibrillation: Plan: Ventricular paced on EKG s/p left atrial appendage ligation Plan VTE Prophylaxis - Lovenox 40mg SQ daily Diet - low Na Disposition - observation to med/surg Admission and Anticipated Discharge Date Admission Date: July 27, 2023 History of Present Illness Chief Complaint: Generalized weakness Primary Care Provider: Scarlet Barreto MD Dami Montes is an 82 year old male who presents to the ER with generalized weakness, fatigue, decreased appetite. Initial he also had fever, chills and diarrhea but this has resolved. He lives alone and family in patient feel he is too generally weak and unbalanced to be at home safely right now. He reports stopping his medications 3 weeks ago as he didn't want to pee all the time on the Lasix. His sister in the room is also concerned his leg swelling is worse over the last week. He reports more chronic issues such as neuropathy in his feet causing him to be unbalanced. In the ER he tested positive for SARS-COV-2. He reports no prior infection and no previous vaccinations. Allergies Allergy/AdvReac Type Severity Reaction Status Date / Time amiodarone Allergy Severe Almost Unverified 07/27/23 12:01 took my life, I don't want it anymore ciprofloxacin Allergy Intermediate Unknown Verified 07/27/23 12:01 Home Medications Medication Instructions Recorded Confirmed Type amoxicillin 500 mg capsule 500 mg PO DIRECTED PRN 06/26/17 07/27/23 History premedication for dental appt #21 caps triamcinolone acetonide 0.1 % 1 applic topical BID PRN Itching 04/20/21 07/27/23 History topical cream furosemide 40 mg tablet 0 mg PO QAM 07/27/23 07/27/23 History metoprolol succinate 25 mg 0 mg PO QAM 07/27/23 07/27/23 History tablet,extended release 24 hr Past Med/Surg History Medical History (Updated 07/28/23 @ 06:41 by Jerry Schwab MD) History of nonmelanoma skin cancer History of nephrolithiasis Macrocytosis without anemia CKD (chronic kidney disease), stage III Chronic venous insufficiency Valvular heart disease Severe ; mild AI; mild MS; mild TR Pacemaker [employer], model [id number]; Right atrial and ventricular lead Hypertension Atrial fibrillation Paroxysmal AFIB Surgical History History of [place] [facility] [address] S/P placement of cardiac pacemaker History of heart valve replacement s/p AVR with #23 Intuity valve; b/l pulmonary vein isolation; Left atrial appendage clip Hx of cataract surgery Hx of hernia repair Hx of elbow surgery History of back surgery Family History Mother Myocardial infarction Other Heart disease Denies family history of Ovarian cancer Prostate cancer Breast cancer Colorectal cancer Social History Smoking Status: Never smoker Second Hand Exposure: No; Do You Dip or Chew Tobacco: No; Hx Alcohol Use: No Hx Substance Use: No Preferred Language: Azeri Communication Ability: Effective Visual Impairment: No Limitations Hearing Ability: Normal Head Usher Required: No Beliefs That Will Affect Care: None marital status: Single Current Living Situation: Alone current occupational status: retired current occupation: retired from construction, 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 How many Children do You have: 0 Other Information That Helps Us Care for You: No Feels Safe at Home: Yes Safety Concerns: Feels Safe At This Time Childhood Exposure to Second-Hand Smoke: Yes Diet: regular Dental Care, Regularly: Yes Physical Activity Frequency: Daily Seatbelt Use: always Sunscreen Use: No Assistive Devices: None Review of Systems Review of Systems: All systems reviewed & are unremarkable except as noted in HPI & below Physical Exam Constitutional: well developed; + not well nourished and no acute distress Eyes: PERRL, conjunctivae normal, anicteric sclerae ENMT: external ear and nose normal, oropharynx normal Respiratory: normal respiratory effort, lungs clear to auscultation Cardiovascular: Rate/Rhythm: regular rate and regular rhythm Heart Sounds: no murmur Vessels: no JVD Extremities: normal capillary refill and + pedal edema (1+ b/l equal); no calf tenderness Gastrointestinal (Abdomen): normal bowel sounds, soft, nontender, no hepatosplenomegaly Musculoskeletal: no cyanosis or clubbing, extremities motor strength 5/5 Skin: no rashes, warm and dry Neurologic: moves all extremities and awake; no focal motor deficits and not confused Speech / Cognition: normal speech Motor/Sensory: no tremor and no pronator drift Psychiatric: Orientation: alert and oriented x 3 Affect: + flat affect Results & Data Results & Data Vital Signs (Past 12 Hours) Vital Signs Temp Pulse Resp BP Pulse Ox O2 Del Method O2 Flow Rate 07/27/23 10:48 98 Nasal Cannula 1 07/27/23 10:35 62 07/27/23 10:30 98 Room Air 0 07/27/23 10:30 36.8 C 60 32 H 152/78 H 98 Room Air Diagnostic Findings XR chest 1V portable CLINICAL HISTORY: sob TECHNIQUE: Single frontal radiograph of the chest was obtained. Comparison: Comparison is made to chest radiograph 08/22/2021 FINDINGS: Median sternotomy wires and dual-lead pacemaker noted. The cardiomediastinal silhouette is stably enlarged. Atrial appendage clip is again seen. Multifocal airspace opacities are prominently in the right lung. No evidence of pleural effusion or pneumothorax. IMPRESSION: Multifocal airspace opacities, predominantly in the right lung, may represent atelectasis, pneumonia, and/or aspiration. Medications Administered ER Medications Given: None Code Status & VTE Plan Code Status Full VTE Prophylaxis Plan VTE Prophylaxis will be ordered: Yes PG Care Time/CCT Total # of Minutes Spent Total Time Spent with Patient: Total time spent is greater than 50% in coordination of care (as documented) at patient's floor/unit and/or counseling patient: Coding Level of Care Code 05120 INT INP/OBS CARE 2/55MIN Diagnoses COVID-19 U07.1 Weakness R53.1 HTN (hypertension) I10 Aortic stenosis I35.0 Atrial fibrillation I48.91
--- OUTSIDE RECORDS SUMMARY | 2023-07-27 14:21 | External Medical Summary | Summary of Care ---
Author Name Unknown Organization [facility] Address [address] [facility] [place] [address] Phone [phone] Care Team Providers Care Branner Machine Tender Name Role Phone Scarlet Barreto MD Primary Care Provide r Reason for Visit * Reason Comments Follow Up Rm 14 Encounter Details Date Type Department Care Team Description 03/02/2023 [facility] [address] [facility] Adelina [place] [address] Josselin Braden CRNP [address] [place] [address] SOB (shortness of breath)*; HTN, goal below 140/90; Permanent atrial fibrillation (HCC); Aortic valve stenosis, etiology of cardiac valve disease unspecified; S/P AVR (aortic valve replacement); CHB (complete heart block) ([facility]); Presence of cardiac pacemaker Allergies Active Allergy Reactions Severity Noted Date Comments Ciprofloxacin 06/07/2018 [place] funny in his head, vision was affected documented as of this encounter (statuses as of 03/02/2023) Medications Medication Sig Dispensed Refills Start Date End Date Status amoxicillin (AMOXIL) 500 MG Capsule 4 tabs 1 hour prior to dental procedures 0 Active aspirin enteric coated 81 MG TBEC Take 1 Tablet by mouth in the morning. 0 Active Metoprolol Succinate ER 50 MG Oral Tablet Extended Release 24 Hour (toPROL XL)Indications:Parox ysmal atrial fibrillation (HCC),Fluid retention,Atrial flutter, unspecified type (HCC) TAKE 1/2 TABLET BY MOUTH EVERY DAY 30 Tablet 5 12/01/2021 Active Furosemide 40 MG Oral Tablet (Lasix)Indications:P aroxysmal atrial fibrillation (HCC),Atrial flutter, unspecified type (HCC),Fluid retention TAKE 1 TABLET BY MOUTH ONCE DAILY 100 Tablet 3 10/11/2022 Active documented as of this encounter (statuses as of 03/02/2023) Active Problems Problem Noted Date Permanent atrial fibrillation 12/17/2020 Fluid retention 12/17/2020 Atrial flutter, unspecified type 021 CHB (complete heart block) 05/17/2018 Presence of cardiac pacemaker 05/17/2018 S/P AVR (aortic valve replacement) 05/07 Aortic valve stenosis 05/07/2018 RBBB (right bundle branch block) 018 Nonrheumatic aortic valve stenosis 01/18 HTN, goal below 140/90 01/18/2017 Atrial fibrillation 06/24/2015 Overview: ICD-10 update of inactive term Standard chest x-ray abnormal 05/20/2015 documented as of this encounter (statuses as of 03/02/2023) Resolved Problems Problem Noted Date Resolved Date History of cataract extraction 05/02/2018 0 05/02/2018 History of elbow surgery 05/02/2018 018 History of spinal surgery 05/02/20182017 History of surgical procedure 05/02/2018 Lumbar spine pain 07/02/2015 05/02/2018 Hip pain 04/20/2015 05/02/2018 documented as of this encounter (statuses as of 03/02/2023) Immunizations Name Administration Dates Next Due Pneumococcal Conjugate Vacc, 13 Valent (Prevnar) 04/04/2019 Pneumococcal Polysaccharide PPV23 (Pneumovax) Seasonal Influenza, Quadriva lent, No Preserve, 6 Mons & Above, IM 05/17/2018,07/12/2017 Seasonal Influenza, Recombinant, RIV4, No Preser ve 05/17/2018 Seasonal Influenza, Trivalen t, High Dose, No Preserve, IM 07/12/2017 documented as of this encounter Social History Tobacco Use Types Packs/Day Years Used Date Smoking Tobacco: Never Smokeless Tobacco: Never Alcohol Use Standard Drinks/Week Comments No 0 (1 standard drink = 0.6 oz pur e alcohol) Sex Assigned at Date Recorded Not on file Job Start Date Occupation Industry Not on file Not on file Not on file documented as of this encounter Last Filed Vital Signs Vital Sign Reading Time Taken Comments Blood Pressure 158/82 03/02/2023 8:33 AM EDT Pulse 60 03/02/2023 8:33 AM EDT Temperature - - Respiratory Rate 16 03/02/2023 8:33 AM EDT Oxygen Saturation - - Inhaled Oxygen Concentration - - Weight 71.7 kg (158 lb) 03/02/2023 8:33 AM EDT Height 172.7 cm (5' 8") 03/02/2023 8:33 AM EDT Body Mass Index 24.02 03/02/2023 8:33 AM EDT documented in this encounter Functional Status Functional Status Response Date of Assess ment Are you deaf or do you have serious difficulty h earing? No 05/02/2018 Are you blind or do you have serious difficulty seeing, even when wearing glasses? No 05/02/2018 Do you have serious difficul ty walking or climbing stairs? (5 years old or older) No 05/02/2018 Do you have difficulty dress ing or bathing? (5 years old or older) No 05/02/2018 Because of a physical, menta l, or emotional condition, do you have difficulty doing errands alone such as visiting a doctor s office or shopping? (15 years old or older) No 05/02/20 18 Cognitive Status Response Date of Assessm ent Because of a physical, menta l, or emotional condition, do you have serious difficulty concentrating, remembering, or making decisions? (5 years old or older No 05/02/2018 documented as of this encounter Patient Instructions * Patient Instructions* CRISTIAN Toledo - 03/02/2023 8:56 AM EDT documented in this encounter Nursing Notes * HANK Dela Cruz - 03/02/2023 8:35 AM EDT Patient was identified by name and date of . Examination Room: 14 Name: Dami Edwards Date of : (1940). Reason for Visit: ret visit Interim Hospitalization(s): no Problems/Concerns: no Chest Pain/SOB: no Medications reviewed and are up to date via: [employer] My [facility] is a way you can talk to your provider online through e-mail. Would you like to sign up? I can activate it for you? DECLINES Do you have video visit capabilities (email and smart phone)? No. Would you be interested in 6 or 12 return visit being scheduled as a video visit if the provider approves? No Patient was instructed to not get up on the exam table/exam chair until directed and assisted by their provider; patient is to remain seated in the chair/ wheelchair/ exam table/ exam chair for fall prevention and safety reasons. Patient is aware to have assistance to step down off exam table/exam chair with personnel. Patient voiced full comprehension of instructions. HANK Manning documented in this encounter Plan of Treatment Health Maintenance Due Date Last Done Comments COVID-19 Vaccine (#1) 03/29/1941 Depression Screening, Annual for Pts 12 and Over 1950 Albumin/Creatinine Ratio 1956 DTaP,Tdap,and Td Vaccines (1 - Tdap) 1957 Zoster Vaccines (2 of 2) 02/07/2023 12/13/2022 Influenza Vaccine (FLU shot) (#1) 2023 05/17/2018, 05/17/2018, 07/12/2017, Additional history exists GFR 01/06/2024 01/05/2023, 09/28, 12/31/2020, Additional history exists Pneumococcal Vaccine: 65+ Years Completed 10/09/2019, 04/04/2019 GARDASIL-HPV IMMUNIZATION SERIES Aged Out No longer eligible based on patient's age to complete this topic Hepatitis B Aged Out No longer eligi ble based on patient's age to complete this topic MENINGOCOCCAL (MENACTRA/MENVEO) Aged Out No longer eligible based on patient's age to complete this topic documented as of this encounter Medical Devices Implanted Type Area Tissue Technologist Device Identifier Shelf Expiration Date Model / Serial / Lot Atricure Implanted:Qty: 1 on 05/02/2018 by Miles Solomon MD at [place] [facility] [place] N/A: Aorta 12/26/2020 [id number] / / [id number] documented as of this encounter Visit Diagnoses Diagnosis SOB (shortness of breath)- Primary Shortness of breath HTN, goal below 140/90 Unspecified essential hypertension Permanent atrial fibrillation (HCC) Atrial fibrillation Aortic valve stenosis, etiology of cardiac valve disease unspecified S/P AVR (aortic valve replacement) Heart valve replaced by other means CHB (complete heart block) (HCC) Atrioventricular block, complete Presence of cardiac pacemaker Cardiac pacemaker in situ documented in this encounter Advance Directives Latest Code Status on File Code Status Date Activated Date Inactivated Comments Full Code 05/02/2018 12:53 PM 05/08/2018 5:00 PM This order reflects the patients wishes and were consensually agreed upon. Care Teams Branner Machine Tender Relationship Specialty Start Date End Date Scarlet Barreto MD [address] [place] [address] PCP - General Internal Medicine 04/21/22 documented as of this encounter
--- OUTSIDE RECORDS SUMMARY | 2023-07-27 14:21 | External Medical Summary | Summary of Care ---
Author Name Unknown Organization [facility] Address [address] [facility] [place] [address] Phone [phone] Care Team Providers Care Dynamicist Name Role Phone Scarlet Barreto MD Primary Care Provide r Reason for Visit * Reason Comments Follow Up Rm 14 Encounter Details Date Type Department Care Team Description 03/02/2023 Office [place] [address] [place] [place] [address] Josselin Braden CRNP [address] [place] [address] SOB (shortness of breath)*; HTN, goal below 140/90; Permanent atrial fibrillation (HCC); Aortic valve stenosis, etiology of cardiac valve disease unspecified; S/P AVR (aortic valve replacement); CHB (complete heart block) ([facility]); Presence of cardiac pacemaker Allergies Active Allergy Reactions Severity Noted Date Comments Ciprofloxacin 06/07/2018 [place] funny in his head, vision was affected documented as of this encounter (statuses as of 03/25/2023) Medications Medication Sig Dispensed Refills Start Date [...] as of this encounter (statuses as of 03/25/2023) Active Problems Problem Noted Date Permanent atrial [...] as of this encounter (statuses as of 03/25/2023) Resolved Problems Problem Noted Date Resolved Date History of cataract extraction 05/02/2018 0 05/02/2018 History of elbow surgery 05/02/2018 018 History of spinal surgery 05/02/20182017 History of surgical procedure 05/02/2018 Lumbar spine pain 07/02/2015 05/02/2018 Hip pain 04/20/2015 05/02/2018 documented as of this encounter (statuses as of 03/25/2023) Immunizations Name Administration Dates Next Due Pneumococcal [...] 8:56 AM EDT documented in this encounter Progress Notes * Sanam Lowry, - 03/25/2023 9:16 AM EDT I have reviewed the advanced practitioner documentation and agree. I saw and evaluated the patient on date of service referenced in note and have performed the following medically appropriate historyand/or exam: Pt seen in EP f/u after pacemaker reprogramming. Since the changes I made to his pacemaker at the last visit pt is feeling much better No change in medications Continue with routine ppm checks EP f/u 6 months Sanam Lowry DO Department of Cardiology [facility] [place] [facility] R[address] [id number] documented in this encounter Nursing Notes * HANK Dela Cruz - 03/02/2023 8:35 AM EDT Patient was identified by name and date of . Examination Room: 14 Name: Dami Edwards Date of : (1940). Reason for Visit: ret visit Interim Hospitalization(s): no Problems/Concerns: no Chest Pain/SOB: no Medications reviewed and are up to date via: [employer] is a way you can talk to [...] this encounter Medical Devices Implanted Type Area Passenger Tire Inspector Device Identifier Shelf Expiration Date Model / Serial / Lot Atricure Implanted:Qty: 1 on 05/02/2018 by Miles Solomon MD [place] [facility] [place] N/A: Aorta 12/26/2020 [id number] / / [id number] documented as of this encounter Visit Diagnoses [...] and were consensually agreed upon. Care Teams Dynamicist Relationship Specialty Start Date End Date Scarlet Barreto MD [address] [place] [address] PCP - General Internal Medicine 04/21/22 documented as of this encounter
--- OUTSIDE RECORDS SUMMARY | 2023-07-27 14:22 | External Medical Summary | Summary of Care ---
Author Name Unknown Organization [facility] Address [address] [facility] [place] [address] Phone [phone] Care Team Providers Care Private Duty Rn Name Role Phone Scarlet Barreto MD Primary Care Provide r Reason for Referral * Precert (Within 10 days (routine)) - Authorized Specialty Diagnoses / Procedures Referred By Contac t Referred To Contact Cardiac Studies Diagnoses SOB (shortness of breath) HTN, goal below 140/90 Permanent atrial fibrillation (HCC) CHB (complete heart block) (HCC) Aortic valve stenosis, etiology of cardiac valve disease unspecified S/P AVR (aortic valve replacement) Procedures ECHO, COMPLETE (2D), TRANS-THORACIC Sanam Lowry DO [address] [place] [id number] Referral ID Status Reason Start Date Expiration Date V isits Requested Visits Authorized [id number] Authorized Precert 01/05/2023 999 999 Reason for Visit * Reason Comments Consultation Encounter Details Date Type Department Care Team Description 01/05/2023 Office Visit Cardiology Keila Champion [address] [place] [id number] Sanam Lowry DO [address] [place] [id number] SOB (shortness of breath)*; HTN, goal below 140/90; Permanent atrial fibrillation (HCC); CHB (complete heart block) (HCC); Aortic valve stenosis, etiology of cardiac valve disease unspecified; S/P AVR (aortic valve replacement) Allergies Active Allergy Reactions Severity Noted Date Comments Ciprofloxacin 06/07/2018 Delmar funny in his head, vision was affected documented as of this encounter (statuses as of 02/27/2023) Medications Medication Sig Dispensed Refills Start Date End Date Status amoxicillin (AMOXIL) 500 MG Capsule 4 tabs 1 hour prior to dental procedures 0 Active aspirin enteric coated 81 MG TBEC Take 81 mg by mouth daily. 0 Active Metoprolol Succinate ER 50 MG Oral Tablet Extended Release 24 Hour (toPROL XL)Indications:Par oxysmal atrial fibrillation (HCC),Fluid retention,Atrial flutter, unspecified type (HCC) TAKE 1/2 TABLET BY MOUTH EVERY DAY 30 Tablet 5 12/01/2021 Active Furosemide 40 MG Oral Tablet (Lasix)Indications :Paroxysmal atrial fibrillation (HCC),Atrial flutter, unspecified type (HCC),Fluid retention TAKE 1 TABLET BY MOUTH ONCE DAILY 100 Tablet 3 10/11/2022 Active Amiodarone HCl 200 MG Oral Tablet (Cordarone) Take by mouth 2 Tablets in the morning AND 2 Tablets before bedtime. Do not start before March 19, 2022. 100 Tablet 11 03/19/2022 3 Discontinue d(Patient preference/ discontinua tion) documented as of this encounter (statuses as of 02/27/2023) Active Problems Problem Noted Date Permanent atrial [...] as of this encounter (statuses as of 02/27/2023) Resolved Problems Problem Noted Date Resolved Date History of cataract extraction 05/02/2018 0 05/02/2018 History of elbow surgery 05/02/2018 018 History of spinal surgery 05/02/20182017 History of surgical procedure 05/02/2018 Lumbar spine pain 07/02/2015 05/02/2018 Hip pain 04/20/2015 05/02/2018 documented as of this encounter (statuses as of 02/27/2023) Immunizations Name Administration Dates Next Due Pneumococcal [...] Sign Reading Time Taken Comments Blood Pressure 144/90 01/05/2023 8:56 AM EDT Pulse 60 01/05/2023 8:56 AM EDT Temperature - - Respiratory Rate - - Oxygen Saturation - - Inhaled Oxygen Concentration - - Weight 75.4 kg (166 lb 3.2 oz) 01/05/2023 8:56 A M EDT Height 170.8 cm (5' 7.25") 01/05/2023 8:56 AM ED T Body Mass Index 25.84 01/05/2023 8:56 AM EDT documented in this encounter Functional [...] No 05/02/2018 documented as of this encounter Progress Notes * Sanam Sera Carreroijeoma, DO - 01/05/2023 9:38 AM EDT Subjective Dami Edwards is a 82 year old male. 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 Has associated palpitations; a few weeks ago he had palpitations for over a minute. The first year with his pacemaker he had a lot of energy and felt fine He has been having worsening leg swelling with some associate weight gain He has a non healing wound on the left ankle medial side with redness PMH: Patient Active Problem List Diagnosis Code Atrial fibrillation (HCC) I48.91 Nonrheumatic aortic valve stenosis I35.0 HTN, goal below 140/90 I10 RBBB (right bundle branch block) I45.10 Standard chest x-ray abnormal R93.89 S/P AVR (aortic valve replacement) Z95.2 Aortic valve stenosis I35.0 CHB (complete heart block) (HCC) I44.2 Presence of cardiac pacemaker Z95.0 Paroxysmal atrial fibrillation (HCC) I48.0 Fluid retention R60.9 Atrial flutter, unspecified type (HCC) I48.92 Current Outpatient Medications Medication Sig Dispense Refill aspirin enteric coated 81 MG TBEC Take 81 mg by mouth daily. Metoprolol Succinate ER 50 MG Oral Tablet Extended Release 24 Hour (toPROL XL) TAKE 1/2 TABLET BY MOUTH EVERY DAY 30 Tablet 5 Furosemide 40 MG Oral Tablet (Lasix) TAKE 1 TABLET BY MOUTH ONCE DAILY 100 Tablet 3 amoxicillin (AMOXIL) 500 MG Capsule 4 tabs 1 hour prior to dental procedures No current facility-administered medications for this visit. Past Medical History: Diagnosis Date Aortic stenosis Atrial fibrillation, transient (HCC) CHB (complete heart block) (HCC) 05/17/2018 Chest pain CAD ruled out with normal coronaries on catheterization Hip pain 04/20/2015 History of back surgery History of cataract extraction 05/02/2018 History of elbow surgery 05/02/2018 History of spinal surgery 05/02/2018 History of surgical procedure 05/02/2018 HTN (hypertension) Kidney stones Lumbar spine pain 07/02/2015 Pt states that he received more relief from resolution of urinary stone and associated UTIs Presence of cardiac pacemaker 05/17/2018 Venous insufficiency of lower extremity Past Surgical History: Procedure Laterality Date ATRIA ABLATION, LIMITED, ADD-ON N/A 05/02/2018 OPERATIVE ABLATION AND RECONSTRUCTION ATRIA LIMITED ADD ON PROCEDURE performed by Miles Solomon MD at OR [facility] CARDIAC SURGERY PROCEDURE NEC N/A 05/02/2018 UNLISTED PROCEDURE CARDIAC SURGERY performed by Miles Solomon MD at OR [facility] CORONARY ANGIOGRAPHY W/LEFT HEART CATH 04/20/2018 CORONARY ANGIOGRAPHY W/LEFT HEART CATH performed by Malcolm Valadez MD at CARDIAC LABS [facility] GW LITHROTRIPSY INFORMATION 2014 back, rods. "They thought I was having a heart attack with that surgery" [facility] INFORMATION hernia repair INFORMATION about 2016 Stone surgery at [facility] INFORMATION finger surgery REMOVE CATARACT, INSERT LENS PROSTH REPLACEMENT AORTIC VALVE, BYPASS WITH PROSTHETIC VALVE N/A 05/02/2018 REPLACEMENT AORTIC VALVE, BYPASS WITH PROSTHETIC VALVE performed by Miles Solomon MD at OR [facility] Review of patient's allergies indicates: Allergen Reactions Ciprofloxacin Delmar funny in his head, vision was affected Family History Problem Relation Age of Onset Heart disease Mother Diabetes None Hypertension None Family Status Relation Status Mo (Not Specified) NONE (Not Specified) Social History Socioeconomic History Marital status: Single Spouse name: Not on file Number of children: Not on file Years of education: Not on file Highest education level: Not on file Occupational History Not on file Tobacco Use Smoking status: Never Smokeless tobacco: Never Substance and Sexual Activity Alcohol use: No Drug use: No Sexual activity: Not on file Other Topics Concern Not on file Social History Narrative Not on file Social Determinants of Health Financial Resource Strain: Not on file Food Insecurity: Not on file Transportation Needs: Not on file Physical Activity: Not on file Stress: Not on file Social Connections: Not on file Intimate Partner Violence: Not on file Housing Stability: Not on file Review of Systems Constitutional: Positive for activity change, fatigue and unexpected weight change. Negative for chills and fever. HENT: Negative for postnasal drip, rhinorrhea and sinus pressure. Eyes: Negative for visual disturbance. Respiratory: Positive for shortness of breath. Cardiovascular: Positive for palpitations and leg swelling. Negative for chest pain. Gastrointestinal: Negative for blood in stool, constipation, diarrhea, nausea and vomiting. Genitourinary: Negative for dysuria and hematuria. Musculoskeletal: Negative for gait problem. Skin: Positive for wound. Negative for rash. Neurological: Negative for dizziness, syncope and light-headedness. Objective BP 144/90 | Pulse 60 | Ht 1.708 m (5' 7.25") | Wt 75.4 kg (166 lb 3.2 oz) | BMI 25.84 kg/m | BSA 1.89 m Physical Exam Vitals and nursing note reviewed. Constitutional: General: He is awake. Appearance: Normal appearance. He is well-developed. HENT: Head: Normocephalic and atraumatic. Eyes: General: No scleral icterus. Extraocular Movements: Extraocular movements intact. Neck: Vascular: Normal carotid pulses. No carotid bruit or JVD. Cardiovascular: Rate and Rhythm: Normal rate and regular rhythm. Pulses: Carotid pulses are 2+ on the right side and 2+ on the left side. Radial pulses are 2+ on the right side and 2+ on the left side. Posterior tibial pulses are 2+ on the right side and 2+ on the left side. Heart sounds: S1 normal and S2 normal. No murmur heard. Pulmonary: Effort: Pulmonary effort is normal. Breath sounds: Normal breath sounds. No decreased breath sounds, wheezing, rhonchi or rales. Abdominal: Palpations: Abdomen is soft. Musculoskeletal: Cervical back: Neck supple. Right lower leg: No edema. Left lower leg: No edema. Skin: General: Skin is warm and dry. Neurological: General: No focal deficit present. Mental Status: He is alert and oriented to person, place, and time. Psychiatric: Attention and Perception: Attention normal. Mood and Affect: Mood normal. Speech: Speech normal. Behavior: Behavior normal. Behavior is cooperative. Thought Content: Thought content normal. Cognition and Memory: Cognition normal. Judgment: Judgment normal. RESULTS: Pacemaker Interrogation: Today: Presenting Rhythm: AF with MANAGER PRINT Underlying Rhythm: AF with CHB Lead Testing: RA: pt in AF RV: 8mV; 450 ohms; 1V@0.5ms Arrhythmia Log: none Reprogramming: none Echocardiogram: 03/17/2022: The examination is adequate to evaluate the referral indication. The LV wall thickness is severely increased (concentric). The left ventricular wall motion is normal. The qualitative LV ejection fraction is 60-64% (normal). The left atrium is severely enlarged. The right atrium is moderately enlarged. The left ventricular diastolic function is moderately abnormal (grade II). There is an aortic valve bioprosthetic present. The aortic valve prosthesis systolic gradients are normal for this type prosthesis. Significant aortic valve prosthesis regurgitation is absent. There is severe mitral annular calcification. Mild mitral regurgitation is present. Moderate tricuspid regurgitation is present. Mild pulmonary hypertension is present. The estimated pulmonary artery systolic pressure is 41mm Hg. ECGS: 03/15/2022: SR 80bpm MANAGER PRINT 03/12/2021: AV 66bpm PVC in bigeminy 12/30/2020: AV paced 60bpm 10/18/2019: AV paced 60bon Echocardiogram: 03/17/2022: The examination is adequate to evaluate the referral indication. The LV wall thickness is severely increased (concentric). The left ventricular wall motion is normal. The qualitative LV ejection fraction is 60-64% (normal). The left atrium is severely enlarged. The right atrium is moderately enlarged. The left ventricular diastolic function is moderately abnormal (grade II). There is an aortic valve bioprosthetic present. The aortic valve prosthesis systolic gradients are normal for this type prosthesis. Significant aortic valve prosthesis regurgitation is absent. There is severe mitral annular calcification. Mild mitral regurgitation is present. Moderate tricuspid regurgitation is present. Mild pulmonary hypertension is present. The estimated pulmonary artery systolic pressure is 41mm Hg. Cardiac Catheterization: 04/20/2018: The coronary arteries are angiographically normal.no Indication for CABG Lab Work Reviewed: Component Latest Ref Rng 01/05/2023 BUN 6 - 20 mg/dL 26 (H) Creatinine 0.6 - 1.2 mg/dL 1.3 (H) Estimated Glomerular Filtration Rate >=60 mL/min 52 (L) Sodium 135 - 146 mmol/L 140 Potassium 3.5 - 5.1 mmol/L 4.1 Chloride 98 - 107 mmol/L 103 CO2 22 - 32 mmol/L 29 Anion Gap 7 - 15 mmol/L 8 Glucose 70 - 120 mg/dL 103 Albumin 3.8 - 5.0 g/dL 4.4 AST 10 - 50 U/L 31 Alkaline Phosphatase 35 - 130 U/L 100 Bilirubin, Total <=1.2 mg/dL 1.1 Calcium 8.4 - 10.2 mg/dL 9.3 Protein 6.0 - 8.3 g/dL 7.6 ALT 10 - 50 U/L 20 WBC 4.00 - 10.80 K/uL 6.37 RBC 4.50 - 5.25 M/uL 4.43 HGB 14.0 - 16.8 g/dL 14.9 HCT 40.0 - 48.4 % 45.5 MCV 82.0 - 99.5 fL 102.7 MCH 27.0 - 34.0 pg 33.6 MCHC 32.0 - 36.0 g/dL 32.7 RDW 11.5 - 15.5 % 14.0 PLT 140 - 400 K/uL 123 (L) MPV 6.6 - 11.1 fL 11.2 nRBCs <=0 /100 WBCs 0 BNP, NT-Pro <300 pg/mL 3,010 (H) TSH 0.27 - 4.20 uIU/mL 2.24 ASSESSMENT: 1. CHB after AVR s/p SJM ppm 05/07/2018 2. Permanent AF h/o PVI and MARLON clip; recurrent AF/flutter 11/2020 s/p GULSHAN guided DCCV; was on amiodarone 02/2022 and had acute SOB stopped 04/2022; [id number] 4 (age, HTN, CAD) 3. HTN 4. HLD 5. RBBB 6. 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 CAD s/p cath 03/2018 with normal coronary arteries 8. CKD stage III 9. Mild MR and TR 10. Mild pulmonary HTN 11. Moderate TR on echo from 11/2020 PLAN: -ICD interrogated today by myself normal function -Continue toprol, ASA and lasix -Echocardiogram today -Lab work after echo -Lab work today as outlined above -EP f/u 1 month Sanam Lowry DO I spent a total of 65 minutes coordinating, documenting, and providing care for this patient excluding time spent in the performance of separately billed services or time spent by another provider/QHP. documented in this encounter Nursing Notes * Katherine Aquino LPN - 01/05/2023 8:55 AM EDT Patient was identified by name and date of . Name: Dami Edwards Date of : (1940). Examination Room: 11 Reason for Visit: Chief Complaint Patient presents with Consultation Interim Hospitalization(s): NO Interim Emergency room visit(s): NO Chest Pain: No SOB: Yes Problems/Concerns: Yes extreme fatigue and unsteady Medications reviewed and are up to date via: Patient's memory Would you like to sign up for [facility]? DECLINES Patient was instructed to not get up on the exam table/exam chair until directed and assisted by their provider; patient is to remain seated in the chair/ wheelchair/ exam table/ exam chair for fall prevention and safety reasons. Patient is aware to have assistance to step down off exam table/exam chair with personnel. Patient voiced full comprehension of instructions. Katherine Aquino LPN 8:55 AM 01/05/2023 documented in this encounter Plan of Treatment Upcoming Encounters Date Type Specialty Care Team Description 03/02/2023 Office Visit Cardiology Josselin Braden CRNP [address] [place] [address] [place] [phone] Health Maintenance Due Date Last Done Comments COVID-19 Vaccine (#1) 03/29/1941 Depression Screening, Annual for Pts 12 and Over 1950 Albumin/Creatinine Ratio 1956 DTaP,Tdap,and Td Vaccines (1 - Tdap) 1957 Zoster Vaccines (1 of 2) 1988 Influenza Vaccine (FLU shot) (#1) 2023 05/17/2018, [...] this encounter Medical Devices Implanted Type Area Product Finisher Device Identifier Shelf Expiration Date Model / Serial / Lot Atricure Implanted:Qty: 1 on 05/02/2018 by Miles Solomon MD at OR [facility] N/A: Aorta 12/26/2020 [id number] / / [id number] documented as of this encounter Results * TSH WITH FREE T4 IF INDICATED (01/05/2023 11:57 AM EDT) TSH 2.24 0.27 - 4.20 uIU/mL 01/05/2023 12:38 PM EDT LABORATORY [facility] Blood Venous blood specimen / Unknown Venipuncture / Unknown 01/05/2023 11:57 AM EDT 01/05/2023 11:59 AM EDT Sanam Lowry DO LAB BLOOD [facility] [address] [address] * (ABNORMAL) BNP, NT-PRO (01/05/2023 11:57 AM EDT) BNP, NT-Pro 3,010(H) <300 pg/mL 01/05/2023 12:38 PM EDT LABORATORY [facility] Blood Venous blood specimen / Unknown Venipuncture / Unknown 01/05/2023 11:57 AM EDT 01/05/2023 11:59 AM EDT [facility] LAB[facility]AT[facility] - 01/05/2023 12:38 PM EDT Exclude Heart Failure: <300 pg/mL Diagnose Heart Failure: Age <50 yr: >450 pg/mL 50-75 yr: >900 pg/mL >75 yr: >1800 pg/mL GFR is 30-59 mL/min: >1200 pg/mL or Age-adjusted values GFR <30 mL/min: do not use, not reliable Prognostic threshold: 1000 pg/mL Sanam Lowry DO LAB BLOOD [facility] [address] [address] * (ABNORMAL) COMPREHENSIVE METABOLIC PANEL (01/05/2023 11:57 AM EDT) BUN 26(H) 6 - 20 mg/dL 01/05/2023 12:38 PM EDT LABORATORY [facility] Creatinine 1.3(H) 0.6 - 1.2 mg/dL 01/05/2023 12:38 PM EDT LABORATORY [facility] Estimated Glomerular Filtration Rate 52(L) >=60 mL/min 01/05/2023 12:38 PM EDT LABORATORY [facility] Comment:eGFR is calculated b ased on the CKD-EPI 2020 equation Sodium 140 135 - 146 mmol/L 01/05/2023 12:38 PM EDT LABORATORY [facility] Potassium 4.1 3.5 - 5.1 mmol/L 01/05/2023 12:38 PM EDT LABORATORY [facility] Chloride 103 98 - 107 mmol/L 01/05/2023 12:38 PM EDT LABORATORY [facility] CO2 29 22 - 32 mmol/L 01/05/2023 12:38 PM EDT LABORATORY [facility] Anion Gap 8 7 - 15 mmol/L 01/05/2023 12:38 PM EDT LABORATORY [facility] Glucose 103 70 - 120 mg/dL 01/05/2023 12:38 PM EDT LABORATORY [facility] Albumin 4.4 3.8 - 5.0 g/dL 01/05/2023 12:38 PM EDT LABORATORY [facility] AST 31 10 - 50 U/L 01/05/2023 12:38 PM EDT LABORATORY [facility] Alkaline Phosphatase 100 35 - 130 U/L 01/05/2023 12:38 PM EDT LABORATORY [facility] Bilirubin, Total 1.1 <=1.2 mg/dL 01/05/2023 12:38 PM EDT LABORATORY [facility] Calcium 9.3 8.4 - 10.2 mg/dL 01/05/2023 12:38 PM EDT LABORATORY [facility] Protein 7.6 6.0 - 8.3 g/dL 01/05/2023 12:38 PM EDT LABORATORY [facility] ALT 20 10 - 50 U/L 01/05/2023 12:38 PM EDT LABORATORY [facility] Blood Venous blood specimen / Unknown Venipuncture / Unknown 01/05/2023 11:57 AM EDT 01/05/2023 11:59 AM EDT Sanam Lowry DO LAB [facility] [address] [address] * (ABNORMAL) CBC (01/05/2023 11:57 AM EDT) WBC 6.37 4.00 - 10.80 K/uL 01/05/2023 12:47 PM EDT LABORATORY [facility] RBC 4.43 4.50 - 5.25 M/uL 01/05/2023 12:47 PM EDT LABORATORY [facility] HGB 14.9 14.0 - 16.8 g/dL 01/05/2023 12:47 PM EDT LABORATORY [facility] HCT 45.5 40.0 - 48.4 % 01/05/2023 12:47 PM EDT LABORATORY [facility] MCV 102.7 82.0 - 99.5 fL 01/05/2023 12:47 PM EDT LABORATORY [facility] MCH 33.6 27.0 - 34.0 pg 01/05/2023 12:47 PM EDT LABORATORY [facility] MCHC 32.7 32.0 - 36.0 g/dL 01/05/2023 12:47 PM EDT LABORATORY [facility] RDW 14.0 11.5 - 15.5 % 01/05/2023 12:47 PM EDT LABORATORY [facility] PLT 123(L) 140 - 400 K/uL 01/05/2023 12:47 PM EDT LABORATORY [facility] MPV 11.2 6.6 - 11.1 fL 01/05/2023 12:47 PM EDT LABORATORY [facility] nRBCs 0 <=0 /100 WBCs 01/05/2023 12:47 PM EDT LABORATORY [facility] Blood Venous blood specimen / Unknown Venipuncture / Unknown 01/05/2023 11:57 AM EDT 01/05/2023 11:59 AM EDT Sanam Lowry DO LAB [place]OD [place] [address] * ECHO, COMPLETE (2D), TRANS-THORACIC (01/05/2023 11:38 AM EDT) LEFT VENTRICULAR EJECTION FRACTION 60 % [facility] 01/05/2023 10:4 9 AM EDT Sanam Lowry DO ECHOCARDIOLOGY [facility] documented in this encounter Visit Diagnoses Diagnosis SOB (shortness of breath)- Primary Shortness of breath HTN, goal below 140/90 Unspecified essential hypertension Permanent atrial fibrillation (HCC) Atrial fibrillation CHB (complete heart block) (HCC) Atrioventricular block, complete Aortic valve stenosis, etiology of cardiac valve disease unspecified S/P AVR (aortic valve replacement) Heart valve replaced by other means documented in this encounter Advance Directives Latest Code Status on File Code Status Date Activated Date Inactivated Comments Full Code 05/02/2018 12:53 PM 05/08/2018 5:00 PM This order reflects the patients wishes and were consensually agreed upon. Care Teams Private Duty Rn Relationship Specialty Start Date End Date Scarlet Barreto MD [address] [facility], [place] [address] PCP - General Internal Medicine 04/21/22 documented as of this encounter
[2023-07-27 14:48] LABS: Appearance Urine Clear (Clear); Bacteria Urine Automated Negative (Negative); Bilirubin Urine Negative (Negative); Blood Urine Negative (Negative); Cast Urine Automated 0 /lpf (0-5); Color Urine Yellow; Epithelial Cell Urine Auto 0-5 /lpf (0-5); Glucose Urine UA Negative (Negative); Ketones Urine Negative (Negative); Leukocyte Esterase Urine Negative (Negative); Nitrite Urine Negative (Negative); RBC Urine Automated 0-4 /hpf (0-4); Specific Gravity Urine 1.016 (1.000-1.030); Urobilinogen Urine Negative (Negative); WBC Urine Automated 0 /hpf (0-5)
[2023-07-27 14:49] LABS: Protein Urine 1+ (Negative)
[2023-07-27] MEDS ORDERED: ACETAMINOPHEN 325 MG TAB PO PRN (15:01)
[2023-07-27] MEDS: FUROSEMIDE 40 MG TAB PO SCH (15:57)
[2023-07-27] MEDS ORDERED: ENOXAPARIN INJ 40 MG/0.4 ML SYR SQ SCH (21:00)
--- OUTSIDE RECORDS SUMMARY | 2023-07-28 03:38 | External Medical Summary | Summary of Care ---
Author Name Unknown Organization [facility] Address [address] [place] [address] Phone [phone] Care Team Providers Care Controls Designer Name Role Phone Scarlet Barreto MD Primary Care Provide r Reason for Visit * Reason Comments Short of Breath Encounter Details Date Type Department Care Team (Latest Contact Info) Description 07/27/2023 9:30 AM EST Convenient Care Visit [facility] [address] [place] [address] Comfort Freitas PA-C [address] [place] [address] Shortness of breath* Allergies Active Allergy Reactions Criticality Noted Date Comments Ciprofloxacin 06/07/2018 [place] funny in his head, vision was affected documented as of this encounter (statuses as of 07/27/2023) Medications Medication Sig Dispensed Refills Start Date [...] ONCE DAILY 100 Tablet 3 10/11/2022 Active Metoprolol Succinate ER 25 MG Oral Tablet Extended Release 24 Hour (toPROL XL) 0 06/02/2023 Active Hospital, Clinic, or Other Facility Administered Medication Ordered Dose Route Frequency Start Date End Date Status aspirin tab 325 mgIndications:Shortness of breath 325 mg OR ONCE 07/27/2023 07/27/2023 Active documented as of this encounter (statuses as of 07/27/2023) Active Problems Problem Noted Date Diagnosed Date Permanent atrial fibrillation 12/17/2020 Fluid retention 12/17/2020 Atrial flutter, unspecified type 12/17/2020 CHB (complete heart block) 05/17/2018 Presence of cardiac pacemaker 05/17/2018 S/P AVR (aortic valve replacement) 05/07/2018 Aortic valve stenosis 05/07/2018 RBBB (right bundle branch block) 12/19/2017 Nonrheumatic aortic valve stenosis 01/18/2017 HTN, goal below 140/90 01/18/2017 Atrial fibrillation 06/24/2015 Overview: ICD-10 update of inactive term Standard chest x-ray abnormal 05/20/2015 documented as of this encounter (statuses as of 07/27/2023) Resolved Problems Problem Noted Date Diagnosed Date Resolved Date History of cataract extraction 05/02/2018 05/02/2018 History of elbow surgery 05/02/201812/2017 History of spinal surgery 05/02/2018 History of surgical procedure 05/02/2018 05/02/2018 Lumbar spine pain 07/02/2015 05/02/2018 Hip pain 04/20/2015 05/02/2018 documented as of this encounter (statuses as of 07/27/2023) Immunizations Name Administration Dates Next Due Pneumococcal Conjugate Vacc, 13 Valent (Prevnar) 04/04/2019 Pneumococcal Polysaccharide PPV23 (Pneumovax) SEASONAL INFLUENZA, PF, 6 M & Above, IM , (FLULAVAL or FLUZONE) 05/17/2018,07/12/2017 Seasonal Influenza, Recombinant, RIV4, PF, (Flub lock) 05/17/2018 Seasonal Influenza, Trivalen t, High Dose, No Preserve, IM 07/12/2017 documented as of this encounter Social History Tobacco Use Types Packs/Day Years Used Date Smoking Tobacco: Never Smokeless Tobacco: Never Alcohol Use Standard Drinks/Week Comments No 0 (1 standard drink = 0.6 oz pur e alcohol) Sex and Gender Information Value Date Recorded Sex Assigned at Not on file Gender Identity Not on file Sexual Orientation Not on file Job Start Date Occupation Industry Not on file Not on file Not on file documented as of this encounter Last Filed Vital Signs Vital Sign Reading Time Taken Comments Blood Pressure 152/70 07/27/2023 9:39 AM EST Pulse 76 07/27/2023 9:39 AM EST Temperature 36.3 C (97.3 F) 07/27/2023 9:39 AM ES T Respiratory Rate 26 07/27/2023 9:39 AM EST Oxygen Saturation 100% 07/27/2023 9:39 AM EST Inhaled Oxygen Concentration - - Weight - - Height - - Body Mass Index - - documented in this encounter Functional Status Functional [...] or making decisions? (5 years old or older) No 05/02/2018 documented as of this encounter Progress Notes * Comfort Freitas PA-C - 07/27/2023 9:36 AM EST Subjective: Nursing Notes: Carmelita Liz LPN 07/27/23 0946 Sign at exiting of workspace Dami Edwards is a 82 year old male who presents to walk-in clinic today complaining of Chief Complaint Patient presents with Short of Breath Main Symptoms:SOB, polyuria, fatigue, sore throat, cough Pt stopped all medication for the past week Cause: unknown How londays Tried: Pt accompanied by: nephew Sx are severe SOB, weakness and some light headedness. Has had head congestion, cough, SOB, and fatigue. Stopped taking all meds last week, particularly aspirin as he reports was making his hand black. Denies CP, pt has a pacemaker, denies pain. Denies abdominal pain and and N/V/D no sick contacts at home. Sig med hx/risk factors: patient has had a-fib and has pacemaker. Does not appear has had flu shot this year. Did not ask as pt was too short of breath to continue to talk. Review of Systems Constitutional: Positive for activity change, appetite change and fatigue. Negative for fever. HENT: Positive for congestion and rhinorrhea. Respiratory: Positive for cough and shortness of breath. Negative for wheezing. Cardiovascular: Negative for chest pain and palpitations. Neurological: Positive for weakness. PMH: Patient Active Problem List Diagnosis Code Atrial fibrillation ([facility]) I48.91 Nonrheumatic aortic valve stenosis I35.0 HTN, goal below 140/90 I10 RBBB (right bundle branch block) I45.10 Standard chest x-ray abnormal R93.89 S/P AVR (aortic valve replacement) Z95.2 Aortic valve stenosis I35.0 CHB (complete heart block) ([facility]) I44.2 Presence of cardiac pacemaker Z95.0 Permanent atrial fibrillation ([facility]) I48.21 Fluid retention R60.9 Atrial flutter, unspecified type ([facility]) I48.92 Current Outpatient Medications Medication Sig Dispense Refill amoxicillin (AMOXIL) 500 MG Capsule 4 tabs 1 hour prior to dental procedures Metoprolol Succinate ER 25 MG Oral Tablet Extended Release 24 Hour (toPROL XL) aspirin enteric coated 81 MG TBEC Take 1 Tablet by mouth in the morning. Metoprolol Succinate ER 50 MG Oral Tablet Extended Release 24 Hour (toPROL XL) TAKE 1/2 TABLET BY MOUTH EVERY DAY 30 Tablet 5 Furosemide 40 MG Oral Tablet (Lasix) TAKE 1 TABLET BY MOUTH ONCE DAILY 100 Tablet 3 Current Facility-Administered Medications Medication Dose Route Frequency Provider Last Rate Last Admin aspirin tab 325 mg 325 mg Oral Once Comfort Freitas PA-C Past Medical History: Diagnosis Date Aortic stenosis Atrial fibrillation, transient (HCC) CHB (complete heart block) ([facility]) 05/17/2018 Chest pain CAD ruled out with [...] PROCEDURE performed by Miles Solomon MD at [facility] CARDIAC SURGERY PROCEDURE NEC N/A 05/02/2018 UNLISTED PROCEDURE CARDIAC SURGERY performed by Miles Solomon MD at [facility] CORONARY ANGIOGRAPHY W/LEFT HEART CATH 04/20/2018 CORONARY ANGIOGRAPHY W/LEFT HEART CATH performed by Malcolm Valadez MD at CARDIAC LABS [facility] LITHROTRIPSY INFORMATION 2015 back, rods. "They thought I was having a heart attack with that surgery" [facility] INFORMATION hernia repair INFORMATION about [address] [facility] INFORMATION finger surgery REMOVE CATARACT, INSERT LENS PROSTH REPLACEMENT AORTIC VALVE, BYPASS WITH PROSTHETIC VALVE N/A 05/02/2018 REPLACEMENT AORTIC VALVE, BYPASS WITH PROSTHETIC VALVE performed by Miles Solomon MD at OR [facility] Review of patient's allergies indicates: Allergen Reactions Ciprofloxacin [place] funny in his head, vision was affected Objective: BP 152/70 | Pulse 76 | Temp 36.3 C (97.3 F) (Tympanic) | Resp 26 | SpO2 100% Physical Exam Constitutional: General: He is in acute distress. Appearance: He is ill-appearing and toxic-appearing. He is not diaphoretic. Comments: Appears very weak. HENT: Nose: Rhinorrhea present. Cardiovascular: Comments: Paced rhythm, cap refill 2-3 seconds fingers, pulse paced. Pulmonary: Breath sounds: No wheezing or rhonchi. Comments: Severe labored breathing Neurological: Mental Status: He is oriented to person, place, and time. ASSESSMENT/PLAN: Shortness of breath (Primary) - aspirin tab 325 mg 911 called Aspirin give as he had not had any of his home aspirin in over a week. Cousins (second one came in) who accompanied him were in complete agreement with plan for 911. Baseball Glove Stuffer informed Return instruction reviewed with pt in detail. Reasons to report to the ED were also reviewed. Voiced understanding Advised to follow up if no improvement in 3-5days. Comfort Freitas PA-C documented in this encounter Nursing Notes * Carmelita Liz LPN - 07/27/2023 9:37 AM EST Dami Edwards is a 82 year old male who presents to walk-in clinic today complaining of Chief Complaint Patient presents with Short of Breath Main Symptoms:SOB, polyuria, fatigue, sore throat, cough Pt stopped all medication for the past week Cause: unknown How londays Tried: Pt accompanied by: nephew documented in this encounter Plan of Treatment Upcoming Encounters Date Type Department Care Team (Late st Contact Info) Description 09/05/2023 1:30 PM EST Office Visit Cardiology, [facility] [address] [facility] [place] [id number] Josselin Braden CRNP [address] [place] [address] Jos RICHARD Pedraza [id number] Health Maintenance Due Date Last Done Comments COVID-19 Vaccine (#1) 03/29/1941 Depression Screening 1952 Albumin/Creatinine Ratio 1956 DTaP,Tdap,and Td Vaccines [...] this encounter Medical Devices Implanted Type Area Fellmongering Machine Operator Device Identifier Shelf Expiration Date Model / Serial / Lot Atricure Implanted:Qty: 1 on 05/02/2018 by Miles Solomon MD at OR [facility] N/A: Aorta 12/26/2020 [id number] / / [id number] documented as of this encounter Visit Diagnoses Diagnosis Shortness of breath- Primary documented in this encounter Advance Directives Latest Code Status on File Code Status Date Activated Date Inactivated Comments Full Code 05/02/2018 12:53 PM 05/08/2018 5:00 PM This order reflects the patients wishes and were consensually agreed upon. Care Teams Controls Designer Relationship Specialty Start Date End Date Scarlet Barreto MD [address] [place] [place] [address] PCP - General Internal Medicine 04/21/22 documented as of this encounter
[2023-07-28 06:14] LABS: Albumin Globulin Ratio 1.1 (0.9-2); Albumin Level 3.4 gm/dl (3.4-5.0); BUN Creatinine Ratio 18.9 (10-20); Bilirubin,Total 1.2 mg/dl (0.2-1.0); Creatinine Clr Calc Pharmacy 40.5 ml/min; Est GFR (African American) 59.7 ml/min; Est GFR (Non-African American) 51.5 ml/min; Globulin 3.1 gm/dl (2.5-4.0); Potassium 4.3 mmol/L (3.5-5.1); Total Protein 6.5 gm/dl (6.0-8.3)
[2023-07-28 06:20] LABS: Hematocrit (blood only) 41.9 % (42.0-52.0); Hemoglobin 14.4 g/dl (14.0-18.0); Mean Corpuscular Hgb Conc 34.4 g/dL (32.0-36.0); Mean Corpuscular Volume 99.1 fL (80.0-100.0); Mean Platelet Volume 11.4 fL (9.4-12.4); Platelet Count 133 K/uL (130-400); RDW Coefficient of Variation 13.1 % (11.5-14.5); RDW Standard Deviation 47.5 fL (36.4-46.3); Red Blood Count 4.23 M/uL (4.70-6.10); White Blood Count 4.42 K/ul (4.8-10.8)
[2023-07-28 06:44] LABS: Basophils # (auto) 0.02 K/uL (0.00-0.20); Basophils % (auto) 0.5 %; Eosinophils # (auto) 0.06 K/uL (0.00-0.50); Eosinophils % (auto) 1.4 %; Immature Granulocytes # (auto) 0.02 K/uL (0.01-0.20); Immature Granulocytes % (auto) 0.5 %; Lymphocytes % (auto) 20.4 %; Monocytes # (auto) 0.57 K/uL (0.11-0.59); Monocytes % (auto) 12.9 %; Neutrophils # (auto) 2.85 K/uL (1.40-6.50); Neutrophils % (auto) 64.3 %
--- NOTE | 2023-07-28 08:23 | Hospitalist Progress Note ---
Date of Service July 28, 2023 Assessment & Plan (1) COVID-19: Plan: Unvaccinated and never had previously No hypoxia but generalized fatigue Outside window for antivirals 98% on RA (2) Weakness: Plan: PT/OT (3) HTN (hypertension): Plan: Restart his usual Lasix 40mg PO daily, he self discontinued this 2-3 weeks ago Some peripheral edema on exam and BNP increased but no significant hypervolemic on exam without JVD Also suppose to be on metoprolol 12.5mg daily as well as aspirin 81mg daily -- will need to clarify (4) Aortic stenosis: Plan: s/p AV replacement 2017 (5) Atrial fibrillation: Plan: Ventricular paced on EKG s/p left atrial appendage ligation Plan VTE Prophylaxis - Lovenox 40mg SQ daily Diet - low Na Disposition - observation to med/surg Admission and Anticipated Discharge Date Admission Date: July 27, 2023 Results & Data Results & Data Laboratory Results 07/28/23 07/27/23 07/27/23 Range/Units 05:33 14:07 10:35 WBC 4.42 L 4.38 L (4.8-10.8) K/ul RBC 4.23 L 4.63 L (4.70-6.10) M/uL Hgb 14.4 15.9 (14.0-18.0) g/dl Hct 41.9 L 44.4 (42.0-52.0) % MCV 99.1 95.9 (80.0-100.0) fL MCH 34.0 34.3 H (25.0-34.0) pg MCHC 34.4 35.8 (32.0-36.0) g/dL RDW Std Deviation 47.5 H 45.4 (36.4-46.3) fL RDW Coeff of Herman 13.1 12.9 (11.5-14.5) % Plt Count 133 128 L (130-400) K/uL MPV 11.4 11.8 (9.4-12.4) fL Immature Gran % (Auto) 0.5 0.9 % Neut % (Auto) 64.3 65.3 % Lymph % (Auto) 20.4 19.9 % Scott % (Auto) 12.9 13.2 % Eos % (Auto) 1.4 0.2 % Baso % (Auto) 0.5 0.5 % Neut # (Auto) 2.85 2.86 (1.40-6.50) K/uL Lymph # (Auto) 0.90 L 0.87 L (1.20-3.40) K/uL Scott # (Auto) 0.57 0.58 (0.11-0.59) K/uL Eos # (Auto) 0.06 0.01 (0.00-0.50) K/uL Baso # (Auto) 0.02 0.02 (0.00-0.20) K/uL Immature Gran # (Auto) 0.02 0.04 (0.01-0.20) K/uL PT 12.4 H (9.0-12.0) Seconds INR 1.1 (0.9-1.1) Sodium 139 136 (136-145) mmol/L Potassium 4.3 4.2 (3.5-5.1) mmol/L Chloride 106 102 (98-107) mmol/L Carbon Dioxide 27 22 (21-32) mmol/L Anion Gap 6 12 H (3-11) BUN 24 H 28 H (6-23) mg/dl Creatinine 1.27 1.29 (0.6-1.4) mg/dl Est Cr Clr Drug Dosing 40.5 44.8 ml/min Est GFR ( Amer) 59.7 58.6 ml/min Est GFR (Non-Af Amer) 51.5 50.6 ml/min BUN/Creatinine Ratio 18.9 21.7 H (10-20) Glucose 93 133 H (70-99(Fasting)) mg/dl Calcium 8.0 L 8.9 (8.6-10.3) mg/dl Magnesium 2.1 (1.7-2.4) mg/dl Total Bilirubin 1.2 H 1.4 H (0.2-1.0) mg/dl AST 30 35 (13-39) U/L ALT 18 22 (7-52) U/L Alkaline Phosphatase 63 76 (34-104) U/L Troponin I High Sens 15.7 (0-20) pg/ml C-Reactive Protein 3.26 H (0-0.5) mg/dl B-Natriuretic Peptide 580 H (0-100) pg/ml Total Protein 6.5 7.5 (6.0-8.3) gm/dl Albumin 3.4 4.0 (3.4-5.0) gm/dl Globulin 3.1 3.5 (2.5-4.0) gm/dl Albumin/Globulin Ratio 1.1 1.1 (0.9-2) TSH 3.226 (0.300-4.500) uIu/ml Urine Color Yellow Urine Appearance Clear (Clear) Urine pH 8.0 H (4.5-7.5) Ur Specific [place] 1.016 (1.000-1.030) Urine Protein 1+ H (Negative) Urine Glucose (UA) Negative (Negative) Urine Ketones Negative (Negative) Urine Blood Negative (Negative) Urine Nitrite Negative (Negative) Urine Bilirubin Negative (Negative) Urine Urobilinogen Negative (Negative) Ur Leukocyte Esterase Negative (Negative) Urine WBC (Auto) 0 (0-5) /hpf Urine RBC (Auto) 0-4 (0-4) /hpf U Hyaline Cast (Auto) 0 (0-5) /lpf U Epithel Cells (Auto) 0-5 (0-5) /lpf Urine Bacteria (Auto) Negative (Negative) Adenovirus (PCR) Not Detected (NotDetected) B. pertussis DNA (PCR) Not Detected (NotDetected) B.parapertussis DNA PCR Not Detected (NotDetected) C. pneumoniae DNA (PCR) Not Detected (NotDetected) Coronavirus OC43 (PCR) Not Detected (NotDetected) Coronavirus HKU1 (PCR) Not Detected (NotDetected) Coronavirus 229E (PCR) Not Detected (NotDetected) SARS-CoV-2 (PCR) DETECTED A* (NotDetected) Coronavirus NL63 (PCR) Not Detected (NotDetected) Human Metapneumovir PCR Not Detected (NotDetected) Influenza Type A (PCR) Not Detected (NotDetected) Influenza Type B (PCR) Not Detected (NotDetected) M. pneumoniae (PCR) Not Detected (NotDetected) Parainfluenza 1 (PCR) Not Detected (NotDetected) Parainfluenza 2 (PCR) Not Detected (NotDetected) Parainfluenza 3 (PCR) Not Detected (NotDetected) Parainfluenza 4 (PCR) Not Detected (NotDetected) RSV (PCR) Not Detected (NotDetected) Entero/Rhino (PCR) Not Detected (NotDetected) Diagnostic Findings Chest X-Ray 07/27/23 10:43 XR chest 1V portable CLINICAL HISTORY: sob TECHNIQUE: Single frontal radiograph of the chest was obtained. Comparison: Comparison is made to chest radiograph 08/22/2021 FINDINGS: Median sternotomy wires and dual-lead pacemaker noted. The cardiomediastinal silhouette is stably enlarged. Atrial appendage clip is again seen. Multifocal airspace opacities are prominently in the right lung. No evidence of pleural effusion or pneumothorax. IMPRESSION: Multifocal airspace opacities, predominantly in the right lung, may represent atelectasis, pneumonia, and/or aspiration. ACT 112: Negative or not required by law. Electronically signed by: Desmond Sofia M.D. 07/27/2023 11:59 AM PG Care Time/CCT Total # of Minutes Spent Total Time Spent with Patient: Total time spent is greater than 50% in coordination of care (as documented) at patient's floor/unit and/or counseling patient: Coding Diagnoses COVID-19 U07.1 Weakness R53.1 HTN (hypertension) I10 Aortic stenosis I35.0 Atrial fibrillation I48.91
[2023-07-28] MEDS: FUROSEMIDE 40 MG TAB PO SCH (08:33)
--- NOTE | 2023-07-28 14:24 | Electrocardiogram Report ---
Test Reason : Blood Pressure : / mmHG Vent. Rate : 065 BPM Atrial Rate : 234 BPM P-R Int : 000 ms QRS Dur : 154 ms QT Int : 508 ms P-R-T Axes : 000 -76 116 degrees QTc Int : 528 ms Ventricular-paced rhythm Abnormal ECG When compared with ECG of 24-MAR-2022 08:21, Vent. rate has decreased BY 15 BPM Confirmed by Nura Medina ([id number]) on 07/28/2023 2:24:09 PM Referred By: REFERRED SELF Confirmed By:Julien Medina
--- NOTE | 2023-07-28 15:11 | Discharge Summary ---
Date of Service July 28, 2023 Admission HPI Per Admitting Provider Dami Montes is an 82 year old male who presents to the ER with generalized weakness, fatigue, decreased appetite. Initial he also had fever, chills and diarrhea but this has resolved. He lives alone and family in patient feel he is too generally weak and unbalanced to be at home safely right now. He reports stopping his medications 3 weeks ago as he didn't want to pee all the time on the Lasix. His sister in the room is also concerned his leg swelling is worse over the last week. He reports more chronic issues such as neuropathy in his feet causing him to be unbalanced. In the ER he tested positive for SARS-COV-2. He reports no prior infection and no previous vaccinations. Admission Exam Per Admitting Provider Constitutional: well developed; + not well nourished and no acute distress Eyes: PERRL, conjunctivae normal, anicteric sclerae ENMT: external ear and nose normal, oropharynx normal Respiratory: normal respiratory effort, lungs clear to auscultation Cardiovascular: Rate/Rhythm: regular rate and regular rhythm Heart Sounds: no murmur Vessels: no JVD Extremities: normal capillary refill and + pedal edema (1+ b/l equal); no calf tenderness Gastrointestinal (Abdomen): normal bowel sounds, soft, nontender, no hepatosplenomegaly Musculoskeletal: no cyanosis or clubbing, extremities motor strength 5/5 Skin: no rashes, warm and dry Neurologic: moves all extremities and awake; no focal motor deficits and not confused Speech / Cognition: normal speech Motor/Sensory: no tremor and no pronator drift Psychiatric: Orientation: alert and oriented x 3 Affect: + flat affect Principal Diagnosis COVID-19, weakness Discharge Exam General: 82yo male sitting up in recliner chair, family at bedside, NAD, inquiring about discharge home HEENT: head atraumatic, normocephalic, mm slightly dry, trachea midline Resp: no tachypnea, +occasional nonproductive cough, faint bilateral crackles posteriorly, no wheezing/rales, on ROOM AIR CV: RRR, +systolic murmur/click, +faint diastolic murmur, trace pedal edema/calves nontender GI: +BS, soft/NT : no bell MSK/Neuro: generalized weakness but nonfocal, follows commands, answering questions appropriately Psych: AOx3, cooperative with exam Discharge Data Allergies Allergy/AdvReac Type Severity Reaction Status Date / Time amiodarone Allergy Severe Almost Unverified 07/27/23 12:01 took my life, I don't want it anymore ciprofloxacin Allergy Intermediate Unknown Verified 07/27/23 12:01 Consultations 07/27/23 12:41 ED Decision to Admit Stat Ordered Studies Chest X-Ray 07/27/23 10:43 XR chest 1V portable CLINICAL HISTORY: sob TECHNIQUE: Single frontal radiograph of the chest was obtained. Comparison: Comparison is made to chest radiograph 08/22/2021 FINDINGS: Median sternotomy wires and dual-lead pacemaker noted. The cardiomediastinal silhouette is stably enlarged. Atrial appendage clip is again seen. Multifocal airspace opacities are prominently in the right lung. No evidence of pleural effusion or pneumothorax. IMPRESSION: Multifocal airspace opacities, predominantly in the right lung, may represent a telectasis, pneumonia, and/or aspiration. ACT 112: Negative or not required by law. Electronically signed by: Desmond Sofia M.D. 07/27/2023 11:59 AM Hospital Course (1) COVID-19: Presented with weakness, unable to go home safely/lives alone. CXR w/ multifocal airspace opacities +COVID testing, isolation precautions maintained during inpatient stay No hypoxia and outside of window for antivirals. Patient stable on room air 99%, noting bilateral crackles on exam but no leukocytosis, fever, or sputum production/shortness of breath reported. Encouraged continued incentive spirometer at dc and monitor for any fevers/sputum production/worsened shortness of breath to return to ER PT eval prior to dc and ok for 24hr care vs rehab -- patient went to sisters following prior back surgery , in room, agreeable to have him come with her at discharge. Has walker at home/no need for new rx Planning for discharge w/ sister (2) Weakness: improved, reports improvement in appetite but hadn't been eating/drinking much Rec w/ family for nutritional supplementation in interim w/ boost/etc while appetite improving (patient reports this has been fine) (3) HTN (hypertension): Restarted his usual Lasix 40mg PO daily, he self discontinued this 2-3 weeks ago and some peripheral edema on exam/elevated BNP (no JVD) and no significant edema on exam on repeat Discussed with patient to monitor weights/monitor for swelling/increased shortness of breath and can utilize as needed in meantime and follow up with PCP/cardiology for ongoing management Also suppose to be on metoprolol 12.5mg daily as well as aspirin 81mg daily -- will need to clarify --> patient reported having made him feel dizzy/improvement w/ pacemaker recently (follows Dr Lowry/[facility]) HRs stable in 60s, will continue off of such, outpatient follow up He stopped ASA due to easy bleeding --> f/u PCP (4) Aortic stenosis: s/p AV replacement 2018, murmur on exam. F/u [facility] cards. Also has mild-mod TR. (5) Atrial fibrillation: Ventricular paced on EKG s/p left atrial appendage ligation Plan VTE Prophylaxis - Lovenox 40mg SQ daily while inpatient Total Time Total Time Spent Total Time Spent (In Minutes): 35 Discharge Plan Discharge Items Patient Disposition: Home - Self-Care Reason For Visit: COVID-19, GENERALIZED WEAKNESS Discharge Diagnosis: COVID-19, generalized weakness Goals: You have been hospitalized for an acute medical problem. During your stay at [facility], we have made an effort to correct the problem that brought you to the hospital while keeping you as comfortable as possible. Medications were used to bring your condition under control and your discharge instructions will include directions for any medications you should take after leaving the hospital. Please make sure you see your Primary Care Provider as part of your follow up plan. Activity: Resume your previous activity Activity Comment: ambulation with walker until back to baseline Non-emergency contact: Primary Care Provider and Content Producer Call non-emergency contact if: you have any medication questions, your symptoms worsen and you have a fever Follow-up/Referrals: Scarlet Barreto MD [Primary Care Provider] - Diet: Heart Healthy and Low Sodium (2gm) Addtl Attending Provider Instructions: You have been hospitalized for generalized weakness and found to have positive COVID testing, which is likely why you felt poorly over the past couple of weeks. Your lasix was resumed and swelling improved and you should monitor your weights at home and if increased swelling should take this medication. Please continue incentive spirometer to help strengthen your lungs. If you have any increased cough/fever/sputum production or shortness of breath please return to the emergency department. Please maintain low salt diet and continue adequate nutrition/supplements at discharge during your recovery. Therapy evaluated you while in the hospital and recommended rehab vs 24hr care at home, and you are being sent to your sisters at discharge per your request. You should follow up with primary care and cardiology after discharge. It has been a pleasure being a part of the medical team providing for you while you have been in the hospital. Take care! Pending Studies at Discharge: No Stand-Alone Forms: My [facility] Medications and DC Order Prescriptions: Continued amoxicillin 500 mg Capsule 500 mg PO DIRECTED PRN (Reason: premedication for dental appt) Qty: 21 Patient Comments: TAKE PRIOR TO DENTAL APPOINTMENTS triamcinolone acetonide 0.1 % cream 1 applic topical BID PRN (Reason: Itching) furosemide 40 mg tablet 0 mg PO QAM Rx Instructions: Per pt: "I stopped taking that because it makes me urinate too much, just holding it for now." Original directions: 40mg by mouth once in the morning Held metoprolol succinate 25 mg tablet extended release 24 hr 0 mg PO QAM Hold Instructions: Resume on 08/04/23. until seen by primary care/cardiology for discussion Rx Instructions: Per pt: "I feel just fine not taking it, so I'm holding it for now." Original directions: 12.5mg by mouth in the morning Discharge Orders: Discharge Order (Routine); Ordered 07/28/23 Ordered By: Dina Dobbs Admission Data Admit Date/Time: 07/27/23 12:45 Attending Provider: Bryn Roegrs Admit Provider: Jerry Schwab Primary Care Provider: Scarlet Barreto Other Providers: Jerry Schwab Supervising Physician Co-Signing Physician Notes The patient was not seen by me. The chart was reviewed. Case discussed with RICHARD Joel. Agree with assessment and plan. The patient is medically stable for discharge home today, July 28 Coding Level of Care Code 32892 INP/OBS DISCH >30 MIN Diagnoses COVID-19 U07.1 Weakness R53.1 HTN (hypertension) I10 Aortic stenosis I35.0 Atrial fibrillation I48.91
--- OUTSIDE RECORDS SUMMARY | 2023-07-29 02:32 | External Medical Summary | Summary of Care ---
Author Name Unknown Organization [facility] Address [address] [place] [address] Phone [phone] Care Team Providers Care Head Refrigerating Engineer Name Role Phone Scarlet Barreto MD Primary Care Provide r Reason for Visit * Reason Comments Short of Breath Encounter Details Date Type Department Care Team (Latest Contact Info) Description 07/27/2023 9:30 AM EST Convenient Care Visit [facility] [address] [place] [address] Kimberly Freitas PA-C [address] [place] [address] Shortness of breath* Allergies Active Allergy Reactions Criticality Noted Date Comments Ciprofloxacin 06/07/2018 [place] funny in his head, vision was affected [...] Date End Date Status aspirin tab 325 mgIndications:Shortne ss of breath 325 mg OR ONCE 07/27/2023 07/27/2023 Discontinued aspirin enteric coated tab 325 mgIndications:Shortne ss of breath 325 mg OR ONCE 07/27/2023 07/27/2023 Ended documented as of this encounter (statuses as [...] as of this encounter Progress Notes * Kimberly Freitas PA-C - 07/27/2023 9:36 AM EST Subjective: Nursing Notes: Carmelita Liz LPN 07/27/23 1045 Signed Dami Edwards is a 82 year old male who presents to walk-in clinic today complaining of Chief Complaint Patient presents with Short of Breath Main Symptoms:SOB, polyuria, fatigue, sore throat, cough Pt stopped all medication for the past week Cause: unknown How londays Tried: Pt accompanied by: nephew Rosa are severe SOB, weakness and some light [...] Active Problem List Diagnosis Code Atrial fibrillation ([facility]) I48.91 Nonrheumatic aortic valve stenosis I35.0 HTN, goal below 140/90 I10 RBBB (right bundle branch block) I45.10 Standard chest x-ray abnormal R93.89 S/P AVR (aortic valve replacement) Z95.2 Aortic valve stenosis I35.0 CHB (complete heart block) ([facility]) I44.2 Presence of cardiac pacemaker Z95.0 Permanent atrial fibrillation ([facility]) I48.21 Fluid retention R60.9 Atrial flutter, unspecified type ([facility]) I48.92 Current Outpatient Medications Medication Sig Dispense [...] Frequency Provider Last Rate Last Admin aspirin enteric coated tab 325 mg 325 mg Oral Once Kimberly Freitas PA-C Past Medical History: Diagnosis Date [...] PROCEDURE performed by Miles Solomon MD at [facility] CARDIAC SURGERY PROCEDURE NEC N/A 05/02/2018 UNLISTED PROCEDURE CARDIAC SURGERY performed by Miles Solomon MD at [facility] CORONARY ANGIOGRAPHY W/LEFT HEART CATH 04/20/2018 CORONARY ANGIOGRAPHY W/LEFT HEART CATH performed by Malcolm Valadez MD at [facility] GW LITHROTRIPSY INFORMATION 2015 back, rods. "They thought I was having a heart attack with that surgery" [facility] INFORMATION hernia repair INFORMATION about 2016 Stone surgery at [facility] INFORMATION finger surgery REMOVE CATARACT, INSERT LENS PROSTH REPLACEMENT AORTIC VALVE, BYPASS WITH PROSTHETIC VALVE N/A 05/02/2018 REPLACEMENT AORTIC VALVE, BYPASS WITH PROSTHETIC VALVE performed by Miles Solomon MD at [facility] Review of patient's allergies indicates: Allergen Reactions Ciprofloxacin [place] funny in his head, vision was affected [...] ASSESSMENT/PLAN: Shortness of breath (Primary) - aspirin enteric coated tab 325 mg 911 called Aspirin give as he had not had any of his home aspirin in over a week. Cousins (second one came in) who accompanied him were in complete agreement with plan for 911. Publications Inspector informed Return instruction reviewed with pt in detail. Reasons to report to the ED were also reviewed. Voiced understanding Advised to follow up if no improvement in 3-5days. Kimberly Freitas PA-C documented in this encounter Nursing [...] accompanied by: nephew documented in this encounter Miscellaneous Notes * Addendum Note - Kimberly Freitas PA-C - 07/27/2023 3:54 PM ESTAddended by: KIMBERLY FREITAS on: 07/27/2023 03:54 PM Modules accepted: Orders documented in this encounter Plan of Treatment Upcoming Encounters Date Type Department Care Team (Late st Contact Info) Description 09/05/2023 1:30 PM EST Office Visit Cardiology, [facility] [address] [facility] [place] [address] Josselin Braden CRNP [address] [place] [phone] Health Maintenance Due Date Last Done Comments [...] this encounter Medical Devices Implanted Type Area Assistant Superintendent Device Identifier Shelf Expiration Date Model / Serial / Lot Atricure Implanted:Qty: 1 on 05/02/2018 by Miles Solomon MD at [place] [facility] N/A: Aorta 12/26/2020 [id number] / / [id number] documented as of this encounter Visit Diagnoses Diagnosis Shortness of breath- Primary documented in this encounter Administered Medications Inactive Administered Medications - up to 3 most recent administrations Medication Order MAR Action Action Date Dose Rate Site aspirin enteric coated tab 325 mg 325 mg, Oral, ONCE, On Saadia 07/27/23 at 0930, For 1 dose, This med should NOT be Crushed or Chewed Given 07/27/2023 4:26 PM EST 325 mg Other-Specify documented in this encounter Advance Directives Latest Code Status on File Code Status Date Activated Date Inactivated Comments Full Code 05/02/2018 12:53 PM 05/08/2018 5:00 PM This order reflects the patients wishes and were consensually agreed upon. Care Teams Head Refrigerating Engineer Relationship Specialty Start Date End Date Scarlet Barreto MD [address] [place] [address] PCP - General Internal Medicine 04/21/22 documented as of this encounter
--- OUTSIDE RECORDS SUMMARY | 2023-07-29 02:33 | External Medical Summary | Summary of Care ---
Author Name Unknown Organization [facility] Address [address] [place] [address] Phone [phone] Care Team Providers Care Filer Helper Name Role Phone Scarlet Barreto MD Primary Care Provide r Reason for Visit * Reason Comments Short of Breath Encounter Details Date Type Department Care Team (Latest Contact Info) Description 07/27/2023 9:30 AM EST Convenient Care Visit [facility] [address] [place] [address] Kimberly Freitas PA-C [address] [place] [address] Shortness of breath* Allergies Active Allergy Reactions Criticality Noted Date Comments Ciprofloxacin 06/07/2018 [place] funny in his head, vision was affected [...] Frequency Start Date End Date Status aspirin enteric coated tab 325 mgIndications:Shortne ss of breath 325 mg OR ONCE 07/27/2023 07/27/2023 Active aspirin tab 325 mgIndications:Shortne ss of breath 325 mg OR ONCE 07/27/2023 07/27/2023 Discontinued documented as of this encounter (statuses as [...] Active Problem List Diagnosis Code Atrial fibrillation ([facility]) I48.91 Nonrheumatic aortic valve stenosis I35.0 HTN, goal below 140/90 I10 RBBB (right bundle branch block) I45.10 Standard chest x-ray abnormal R93.89 S/P AVR (aortic valve replacement) Z95.2 Aortic valve stenosis I35.0 CHB (complete heart block) ([facility]) I44.2 Presence of cardiac pacemaker Z95.0 Permanent atrial fibrillation ([facility]) I48.21 Fluid retention R60.9 Atrial flutter, unspecified type ([facility]) I48.92 Current Outpatient Medications Medication Sig Dispense [...] PROCEDURE performed by Miles Solomon MD at [facility] CARDIAC SURGERY PROCEDURE NEC N/A 05/02/2018 UNLISTED PROCEDURE CARDIAC SURGERY performed by Miles Solomon MD at [facility] CORONARY ANGIOGRAPHY W/LEFT HEART CATH 04/20/2018 CORONARY ANGIOGRAPHY W/LEFT HEART CATH performed by Malcolm Valadez MD at [facility] GW LITHROTRIPSY INFORMATION 2015 back, rods. "They thought I was having a heart attack with that surgery" [facility] INFORMATION hernia repair INFORMATION about 2016 Stone surgery at [facility] INFORMATION finger surgery REMOVE CATARACT, INSERT LENS PROSTH REPLACEMENT AORTIC VALVE, BYPASS WITH PROSTHETIC VALVE N/A 05/02/2018 REPLACEMENT AORTIC VALVE, BYPASS WITH PROSTHETIC VALVE performed by Miles Solomon MD at [facility] Review of patient's allergies indicates: Allergen Reactions Ciprofloxacin [place] funny in his head, vision was affected [...] in complete agreement with plan for 911. Press Shop Supervisor informed Return instruction reviewed with pt in [...] 09/05/2023 1:30 PM EST Office Visit Cardiology, [facility] [address] [facility] [place] [address] Josselin Braden CRNP [address] [place] [phone] Health Maintenance Due Date Last Done Comments [...] this encounter Medical Devices Implanted Type Area Flower Machine Operator Device Identifier Shelf Expiration Date Model / Serial / Lot Atricure Implanted:Qty: 1 on 05/02/2018 by Miles Solomon MD at [facility] N/A: Aorta 12/26/2020 [id number] / / [id number] documented as of this encounter Visit Diagnoses Diagnosis Shortness of breath- Primary documented in this encounter Advance Directives Latest Code Status on File Code Status Date Activated Date Inactivated Comments Full Code 05/02/2018 12:53 PM 05/08/2018 5:00 PM This order reflects the patients wishes and were consensually agreed upon. Care Teams Filer Helper Relationship Specialty Start Date End Date Scarlet Barreto MD [address] [place] [address] PCP - General Internal Medicine 04/21/22 documented as of this encounter
== END 2023-07-28 16:34 | disposition home or self-care (01) ==
LOC: ED 10:26 → EDINP 10:26 → SUATTDRO 12:45 → 3E 15:02